=== PATIENT | male | born 1980 | race Caucasian/White ===

== ENCOUNTER 2019-08-25 12:50 | Outpatient (CLI) | payer BC, SELFPAY ==
--- NOTE | 2019-08-30 14:57 | WPDPFTINT ---
PFT Interpretation PFT Interpretation: DOS: 08/25/2019 REQUESTING: Dr Tim French REASON FOR TESTING: Cough PULMONARY FUNCTION TESTS Results are reliable and reproducible. Spirometry: FEV1 90%, FVC 85%, FEV1 % is 79, all normal. No bronchodilator was given. Lung volumes: Total lung capacity is 62%, moderately decreased consistent with a restrictive pattern. ERV is 22%, very low, may be related to elevated BMI. Airway resistance is 135%, minimally elevated. The RV is spuriously low at 6%, a calculated value, RV = TLC - VC. Diffusion: DLCO 65%, mildly decreased. Flow volume loop: Normal IMPRESSION: Normal spirometry. No bronchodilator was given. Moderate restriction and mild diffusion abnormality. Restriction with decreased diffusion can be seen in heart failure, sarcoid and other conditions. This study is not consistent with asthma or obesity, as both conditions are associated with increased DLCO. Cathy Ramon MD
== END 2019-08-25 12:51 | disposition home or self-care (01) ==
PROVIDERS: PCP Internal Medicine; Visit Provider Internal Medicine
DX: R05 Cough (principal)
CPT/HCPCS: 94375; 94726; 94729

== ENCOUNTER 2019-10-15 00:34 | Outpatient (CLI) | payer BC, SELFPAY ==
[2019-10-15 17:53] LABS: SARS-CoV-2 RNA PCR Negative
== END 2019-10-15 00:35 | disposition home or self-care (01) ==
LOC: ANHCOVIDDT 00:35
PROVIDERS: PCP Internal Medicine; Visit Provider Surgery
DX: Z01.818 Encounter for other preprocedural examination (principal); Z11.59 Encounter for screening for other viral diseases
CPT/HCPCS: 87635; C9803; U0003

== ENCOUNTER 2019-10-15 08:06 | Outpatient (CLI) | payer BC, SELFPAY ==
--- NOTE | 2019-10-15 08:10 | ECG_ITS ---
Measurements Intervals [place] Rate: 84 P: 17 CT: 158 QRS: -9 QRSD: 105 T: 3 QT: 386 QTc: 457 Interpretive Statements SINUS RHYTHM POOR R WAVE PROGRESSION, ANTERIOR LEADS BORDERLINE T WAVE ABNORMALITY- INFERIOR LEADS BASELINE ARTIFACT- I, II, III, AVR, AVL, AVF, V6 BORDERLINE ECG Electronically Signed On 10-15-2019 10:44:44 CDT by Ehsan Alexander D.O.
[2019-10-15 08:45] LABS: Blood Urea Nitrogen 9 mg/dL (9-20); Calcium 8.6 mg/dL (8.4-10.2); Carbon Dioxide 29 mmol/L (22-30); Chloride 101 mmol/L (98-107); Estimated Glomerular Filt Rate > 60; Glucose 177 mg/dL (75-110); Potassium 3.5 mmol/L (3.4-5.0); Sodium 137 mmol/L (137-145)
== END 2019-10-15 08:07 | disposition home or self-care (01) ==
LOC: ANHSURGERY 08:10
PROVIDERS: Anesthesiology; PCP Internal Medicine; Visit Provider Surgery
DX: Z01.818 Encounter for other preprocedural examination (principal); I10 Essential (primary) hypertension; E11.9 Type 2 diabetes mellitus without complications
CPT/HCPCS: 36415; 80048; 93005

== ENCOUNTER 2019-10-18 02:23 | Day surgery (SDC) | payer BC, SELFPAY ==
[2019-10-05 14:09] VITALS: BMI 48.9
[2019-10-18] MEDS: LACTATED RINGERS 1,000 ML 30 ML IV CONT (06:30)
--- NOTE | 2019-10-18 06:41 | WPDANESEPPF ---
Anes - Initial Pre Proc Eval Procedure: Operation Date: 10/18/19 07:30 Proposed Procedures p Excision Subcutaneous Mass Right Anterior Shoulder - Andrew Pineda MD Date/Time: 10/18/19 06:41 Surgeon: Andrew Pineda MD Pre Op Diagnosis: Subcutaneous Mass Rt Shoulder Patient Data Age: 39 Gender: M Height: 1.88 m Weight: 150 kg Allergies Allergy/AdvReac Type Severity Reaction Status Date / Time No Known Allergies Allergy Verified 10/18/19 06:02 Home Medications Medication Instructions Recorded Confirmed Type albuterol sulfate 90 mcg/actuation 1 inhalation INHALATION Q4-6H PRN 09/08/19 10/05/19 History breath activated powder inhaler,sensor amlodipine 10 mg tablet 10 mg PO DAILY 09/08/19 10/18/19 History atorvastatin 10 mg tablet 10 mg PO DAILY 09/08/19 10/18/19 History blood sugar diagnostic #10 each 09/08/19 History blood-glucose meter #1 each 09/08/19 History carvedilol 25 mg tablet 25 mg PO Q12H 09/08/19 10/18/19 History citalopram 40 mg tablet 40 mg PO DAILY 09/08/19 10/18/19 History etodolac 400 mg tablet 400 mg PO BID 09/08/19 10/05/19 History glimepiride 2 mg tablet 2 mg PO QAM 09/08/19 10/18/19 History hydrochlorothiazide 25 mg tablet 25 mg PO DAILY 09/08/19 10/18/19 History lancets #50 each 09/08/19 History losartan 100 mg tablet 100 mg PO DAILY 09/08/19 10/18/19 History metformin 500 mg tablet 500 mg PO DAILY 09/08/19 10/18/19 History metoprolol succinate 100 mg 100 mg PO DAILY 09/08/19 10/18/19 History tablet,extended release 24 hr montelukast 10 mg tablet 10 mg PO DAILY 09/08/19 10/18/19 History omeprazole 40 mg capsule,delayed 40 mg PO DAILY 09/08/19 10/18/19 History release ECG: Date of Service: 10/15/19 Procedure(s): CA 12 lead EKG Accession Number(s): [id number] cc: ~ Measurements Intervals [place] Rate: 84 P: 17 [place]: 158 QRS: -9 QRSD: 105 T: 3 QT: 386 QTc: 457 Interpretive Statements SINUS RHYTHM POOR R WAVE PROGRESSION, ANTERIOR LEADS BORDERLINE T WAVE ABNORMALITY- INFERIOR LEADS BASELINE ARTIFACT- I, II, III, AVR, AVL, AVF, V6 BORDERLINE ECG Electronically Signed On 10-15-2019 10:44:44 CDT by Ehsan Alexander D.O. Patient hx anesthesia problems: none Family hx anesthesia problems: none [facility] Past Medical History Medical History (Updated 10/18/19 @ 06:42 by Ranjith Martinez MD) Acute depression Anxiety Diabetes GERD (gastroesophageal reflux disease) High cholesterol HTN (hypertension) Hypercholesterolemia Morbid obesity with BMI of 40.0-44.9, adult Surgical History Surgical History H/O sinus surgery Social History Social History Smoking status: Never smoker Alcohol intake: current Substance use: never Gender identity (if verbalized by the patient): Male Anes - Eval Final PreProcedure Day of Procedure 10/18/19 06:41 Patient weight: morbidly obese Heart: regular rate and rhythm Lungs: clear to auscultation and normal air movement Airway: Mallampati scale class II Neurological: alert and oriented Last oral intake: >/= 8 hours ASA classification: III Emergent: no Anesthetic plan: proceed Anesthesia type and monitoring: general GIVS and LMA Informed Consent: The patient's anesthetic plan and its attendant risks and benefits were discussed with the patient/family/POA. Questions were solicited and answers provided to the satisfaction of the patient/family/POA.
[2019-10-18 06:59] VITALS: BP 157/85; PULSE 76; RESP 18; TEMP 36.7; O2SAT 98
[2019-10-18 07:06] LABS: Glucose Point of Care 160 (65-105)
--- NOTE | 2019-10-18 07:25 | WPDHPUPDATE1 ---
History and Physical Update Update Date/Time: 10/18/19 07:25 History and Physical has been reviewed, including an updated exam of the patient. There are NO changes in the patient's condition. Risks, benefits, and alternatives have been discussed and questions answered. Patient agrees to proceed with procedure.
[2019-10-18] MEDS: ceFAZolin SODIUM 1 GM VIAL IV PUSH (07:34)
[2019-10-18] MEDS: BUPIVACAINE/EPINEPHRINE 0.5% 30 ML VIAL 10 ML INFILTRATE (07:34)
[2019-10-18] MEDS: ceFAZolin 2 GM/D5W 50 ML 2 GM/50 ML BAG IVPB (07:34)
--- NOTE | 2019-10-18 08:18 | SUR.OPER ---
EBL:10cc
[2019-10-18 08:30] VITALS: BP 156/102; PULSE 83; RESP 18; O2SAT 97
--- NOTE | 2019-10-18 08:33 | PM.PROC ---
Procedure Note - Detailed Date of procedure: 10/18/19 Pre-op diagnosis: Subcutaneous Mass Rt Shoulder Post-op diagnosis: same Procedure performed: Excision of subcutaneous mass right anterior shoulder Description of procedure: The patient was placed in the supine position. After a surgical time out confirming patient and procedure the patient was prepped and draped in the usual sterile fashion. Local anesthetic was administered subcutaneously. The lesion measured 3 x 2.5 cm. An elliptical incision was made around and over the lesion taking a thin margin circumferentially. I felt that there was a possibility of either this being an epidermal cyst or a lipoma. Since it could be a cyst I want to take little skin overlying the lesion. I dissected down to the deep subcutaneous tissues and then completely excised the lesion. After incising circumferentially in elliptical fashion I elevated this with 2 Allis is an using Bovie cautery carefully dissected the palpable mass from subcutaneous tissues. On its deep sided did seem to be somewhat densely adhered to the fascia of the underlying muscle. Bleeding was controlled with electrocautery. The wound was closed in two layers. An un-dyed 2-0 vicryl deep dermal and then a 4-0 undyed Monocryl running subcuticular closure was completed. Surgical glue applied as dressing. Estimated blood loss about 8 cc. Patient tolerated this well. Anesthesia: local and other (G IV S) Surgeon: Andrew Pineda MD Batch Tank Controller: KARLIE Lowe, OR 1st assist Estimated blood loss (mL): 8 Drains: No Packing: No Pathology: yes (Ellipse of skin with underlying subcutaneous mass measuring 3.5 x 3 cm) Complications: No immediate complications Condition: stable Disposition: same day Findings: A palpable spongy soft mass in the subcutaneous space.
[2019-10-18 09:00] VITALS: BP 155/83; PULSE 72; RESP 18; O2SAT 93
[2019-10-18 09:18] LABS: Glucose Point of Care 203 (65-105)
[2019-10-18 09:30] VITALS: BP 145/77; PULSE 65; RESP 18
== END 2019-10-18 09:47 | disposition home or self-care (01) ==
PROVIDERS: PCP Internal Medicine; Visit Provider Surgery
PROC: (CPT 23071; principal; 2019-10-18 07:30)
DX: D17.39 Benign lipomatous neoplasm of skin and subcutaneous tissue of other sites (principal); I10 Essential (primary) hypertension; E78.00 Pure hypercholesterolemia, unspecified; K21.9 Gastro-esophageal reflux disease without esophagitis; E66.01 Morbid (severe) obesity due to excess calories; Z68.41 Body mass index [BMI] 40.0-44.9, adult; F41.9 Anxiety disorder, unspecified; F32.9 Major depressive disorder, single episode, unspecified
CPT/HCPCS: 23071; 88304; J0690; J2250; J2704; J3010; J7120

== ENCOUNTER → 2023-02-12 16:00 | Outpatient (REF) | payer BC, SELFPAY | LOC: ANHLAB 16:00 | PROVIDERS: PCP Internal Medicine; Visit Provider Plastic Surgery | DX: L72.11 Pilar cyst (principal) | CPT/HCPCS: 88305 ==

== ENCOUNTER → 2023-03-17 15:57 | Outpatient (REF) | payer BC, SELFPAY | LOC: ANHLAB 15:57 | PROVIDERS: PCP Internal Medicine; Visit Provider Plastic Surgery | DX: L72.9 Follicular cyst of the skin and subcutaneous tissue, unspecified (principal); L08.9 Local infection of the skin and subcutaneous tissue, unspecified; L72.11 Pilar cyst | CPT/HCPCS: 88305 ==

== ENCOUNTER 2023-03-17 16:41 | Outpatient (NON) | payer BC, SELFPAY | END 2023-03-17 16:42 | disposition home or self-care (01) | LOC: ANHLAB 16:42 | PROVIDERS: PCP Internal Medicine; Visit Provider Plastic Surgery | DX: L72.9 Follicular cyst of the skin and subcutaneous tissue, unspecified (principal); L08.9 Local infection of the skin and subcutaneous tissue, unspecified; L72.11 Pilar cyst | CPT/HCPCS: 87070; 87075; 87147; 87181; 87186; 87205; 88305 ==

== ENCOUNTER 2024-06-16 07:51 | Outpatient (CLI) | payer BC, SELFPAY ==
--- OUTSIDE RECORDS SUMMARY | 2024-06-16 07:55 | XMS_ITS | Data Portability ---
Author Organization [facility] ALEJANDRAAnjali Address [address] [place] [address] Care Team Providers Care Head Inspector Name Role Phone DERRELL FRENCH Primary Care Provider [facility] Dining Services Manager [phone] Assessment Encounter Date Assessment Date Assessment LastModified by Organization Details LastModified Time 07/03/2023 07/03/2023 Will try to get him switched to Ozempic so we can realize a little bit more weight loss hypertension hyperlipidemia diabetes obesity chronic rhinitis and the medicines used to treat those have been discussed. I really need to focus on the weight loss blood pressure he needs to get a machine and start taking that every day bring numbers then. Follow-up with me in 4 months. Records from old clinic. [email or web address] Not available 07/13/2023 16:27:36 01/22/2024 01/22/2024 Blood work ordered diagnosis and assessment and plan discussed immunizations recommended that he get flu and COVID even consider RSV given his obesity consider bariatric surgery referral GLP 1 agents of which he is reluctant at this time states he is up-to-date on diabetic eye exam needs colon cancer screening. Cologuard ordered return to clinic 4 months. [email or web address] Not available 01/23/2024 11:46:05 05/27/2024 05/27/[address] report foot exam refer for podiatry blood work ordered sleep study ordered weight controlled discussed in detail follow up 4 months [email or web address] Not available 05/29/2024 13:35:48 Plan of Treatment Reminders Order Date Submit Date Provider Last Modified By Organization Details Last Modified Time Details Appointments ANY 15 2024 03:15P Niles French MD Not available Not available Not available Lab HbA1c (hemoglob in A1c), blood 2024 025 [facility], [address], [place], [address], 05/27/2024 17:16:51 albumin/c reatinine , mass ratio, urine 2024 025 [facility], [address], [place], [address], 05/27/2024 17:16:51 lipid panel, serum 2024 025 ester [facility], [address], [place], [address], 05/27/2024 17:16:51 CBC w/ auto diff 2024 025 ester [facility], [address], [place], [address], 05/27/2024 17:16:51 CMP, serum or plasma 2024 025 ester [facility], [address], [place], [address], 05/27/2024 17:16:51 HbA1c (hemoglob in A1c), blood 2023 024 CORIN[facility], [address], [place], [address], 01/24/2024 09:13:53 albumin/c reatinine , mass ratio, urine 2023 024 CORINNE [facility], [address], [place], [address], 01/24/2024 09:13:51 noninvasi ve colorecta l cancer DNA + occult blood screening , QL, stool 2023 024 [facility] ([facility] Orders Only), [address], [address], [place], [address], 02/03/2024 22:06:46 lipid panel, serum 2023 024 [facility], [address], [place], [address], 01/24/2024 09:13:52 CMP, serum or plasma 2023 024 [facility], [address], [place], [address], 01/24/2024 09:13:52 CBC w/ auto diff 2023 024 [facility], [address], [place], [address], 01/24/2024 09:13:54 urinalysi s, microscop ic 2023 024 [facility], [address], [place], [address], 01/24/2024 09:13:53 HbA1c (hemoglob in A1c), blood 2023 024 [facility], [address], [place], [address], 07/05/2023 08:20:16 CMP, serum or plasma 2023 024 [facility], [address], [place], [address], 07/05/2023 08:20:15 CBC w/ auto diff 2023 024 [facility], [address], [place], [address], 07/05/2023 08:20:17 CBC 2023 024 [email or web address], [address], [place], [address], 10/02/2023 11:03:47 TSH, ultra-sen sitive, serum 2023 024 [place], [address], [place], [address], 07/05/2023 08:20:16 unlisted lab - T4, free 2023 024 [place] [facility], [address], [place], [address], 07/05/2023 08:20:15 T3, free, serum or plasma 2023 024 [place] [facility], [address], [place], [address], 07/05/2023 08:20:18 Referral podiatris t referral 2024 025 renato [facility]ang [facility], [address], [address], [place], [address], 05/27/2024 17:50:51 Procedures None recorded. Surgeries None recorded. Imaging home sleep study 2024 025 [facility] ([facility]), [address] [facility], [place], [address], 05/31/2024 10:45:37 Medication Orders Ozempic 0.25 mg or 0.5 mg (2 mg/1.5 mL) subcutane ous pen injector 2023 024 [id number], [address], [place], [place], [id number], 04/29/2024 09:38:40 Patient TargetsNo targets recorded. Patient Instructions Encounter Date Encounter Id Patient Instructions Last Modified By Organization Details Last Modified Time 07/03/2023 [id number] diabetic eye exam* [email or web address] Not available 05/24/2024 16:55:11 01/22/2024 [id number] A healthy lifestyle: care instructions [email or web address] Not available 01/22/2024 17:28:59 05/27/2024 [id number] A healthy lifestyle: care instructions [email or web address] Not available 05/27/2024 17:16:51 Reason for Referral Radiation Therapy Technician Referral for Type 2 diabetes mellitus Referring Physician: Derrell French, Internal Medicine, Encounter Date: 05/27/2024 Results Created Date Observation Date Name Description Value Unit Range Abnormal Flag Note LastModifiedBy Organization Detail LastModifiedTime 07/04/1907/05/2023 T4, FREE T4,free(dire ct) 1.39 NG/dL 0.82-1 .77 Not Available [facility] ([facility]) [address] [place], [address], 07/05/2023 08:20:14 07/04/19 24 07/05/2023 COMP. METAB OLIC PANEL (14) glucose 185 mg/dL 70-99 above high normal Not Available [facility] ([facility]) [address] [place], [address], 07/05/2023 08:20:15 07/04/19 24 07/05/2023 COMP. METAB OLIC PANEL (14) BUN 7 mg/dL 6-24 Not Available [facility] ([facility]) [address] [place], [address], 07/05/2023 08:20:15 07/04/19 24 07/05/2023 COMP. METAB OLIC PANEL (14) creatinine 0.70 mg/dL 0.76-1 .27 below low normal Not Available [facility] ([facility]) [address] [place], [address], 07/05/2023 08:20:15 07/04/19 24 07/05/2023 COMP. METAB OLIC PANEL (14) eGFR 116 mL/mi n/1.7 3 >59 Not Available [facility] ([facility]) [address] [facility], [place], [address], 07/05/2023 08:20:15 07/04/19 24 07/05/2023 COMP. METAB OLIC PANEL (14) BUN/creatini ne ratio 10 9-20 Not Available [facility] ([facility]) [address] [facility], [place], [address], 07/05/2023 08:20:15 07/04/19 24 07/05/2023 COMP. METAB OLIC PANEL (14) sodium 143 mmol/ L 134-14 4 Not Available [facility] ([facility]) [address] [facility], [place], [address], 07/05/2023 08:20:15 07/04/19 24 07/05/2023 COMP. METAB OLIC PANEL (14) potassium 4.2 mmol/ L 3.5-5. 2 Not Available [facility] ([facility]) [address] [place], [address], 07/05/2023 08:20:15 07/04/19 24 07/05/2023 COMP. METAB OLIC PANEL (14) chloride 98 mmol/ L 96-106 Not Available [facility] ([facility]) [address] [place], [address], 07/05/2023 08:20:15 07/04/19 24 07/05/2023 COMP. METAB OLIC PANEL (14) carbon dioxide, total 26 mmol/ L 20-29 Not Available [facility] ([facility]) [address] [place], [address], 07/05/2023 08:20:15 07/04/19 24 07/05/2023 COMP. METAB OLIC PANEL (14) calcium 9.6 mg/dL 8.7-10 .2 Not Available [facility] ([facility]) [address] [place], [address], 07/05/2023 08:20:15 07/04/19 24 07/05/2023 COMP. METAB OLIC PANEL (14) protein, total 7.0 g/dL 6.0-8. 5 Not Available [facility] ([facility]) [address] [place], [address], 07/05/2023 08:20:15 07/04/19 24 07/05/2023 COMP. METAB OLIC PANEL (14) albumin 4.5 g/dL 4.1-5. 1 Not Available [facility] ([facility]) [address] [place], [address], 07/05/2023 08:20:15 07/04/19 24 07/05/2023 COMP. METAB OLIC PANEL (14) globulin, total 2.5 g/dL 1.5-4. 5 Not Available [facility] ([facility]) [address] [place], [address], 07/05/2023 08:20:15 07/04/19 24 07/05/2023 COMP. METAB OLIC PANEL (14) A/G ratio 1.8 1.2-2. 2 Not Available [facility] ([facility]) [address] [place], [address], 07/05/2023 08:20:15 07/04/19 24 07/05/2023 COMP. METAB OLIC PANEL (14) bilirubin, total 0.7 mg/dL 0.0-1. 2 Not Available [facility] ([facility]) [address] [place], [address], 07/05/2023 08:20:15 07/04/19 24 07/05/2023 COMP. METAB OLIC PANEL (14) alkaline phosphatase 58 IU/L 44-121 Not Available [facility] ([facility]) [address] [place], [address], 07/05/2023 08:20:15 07/04/19 24 07/05/2023 COMP. METAB OLIC PANEL (14) AST (SGOT) 35 IU/L 0-40 Not Available [facility] ([facility]) [address] [facility], [place], [address], 07/05/2023 08:20:15 07/04/19 24 07/05/2023 COMP. METAB OLIC PANEL (14) ALT (SGPT) 65 IU/L 0-44 above high normal Not Available [facility] ([facility]) [address] [facility], [place], [address], 07/05/2023 08:20:15 07/04/19 24 07/05/2023 HEMOG LOBIN A1C hemoglobin A1C 7.5 % 4.8-5. 6 above high normal Predi abete s: 5.7 - 6.4 Diabe surjit: >6.4 Glyce marky contr ol for adult s with diabe surjit: <7.0 Not Available [facility] ([facility]) [address] [facility], [place], [address], 07/05/2023 08:20:16 07/04/19 24 07/05/2023 TSH TSH 0.678 uIU/m L 0.450- 4.500 Not Available [facility] ([facility]) [address] [place], [address], 07/05/2023 08:20:16 07/04/19 24 07/05/2023 CBC WITH DIFFE RENTI AL/PL ATELE T WBC 6.3 x10e3 /uL 3.4-10 .8 Not Available [facility] ([facility]) [address] [place], [address], 07/05/2023 08:20:17 07/04/19 24 07/05/2023 CBC WITH DIFFE RENTI AL/PL ATELE T RBC 5.94 x10e6 /uL 4.14-5 .80 above high normal Not Available [facility] ([facility]) [address] [facility], [place], [address], 07/05/2023 08:20:17 07/04/19 24 07/05/2023 CBC WITH DIFFE RENTI AL/PL ATELE T hemoglobin 16.6 g/dL 13.0-1 7.7 Not Available [facility] ([facility]) [address] [facility], [place], [address], 07/05/2023 08:20:17 07/04/19 24 07/05/2023 CBC WITH DIFFE RENTI AL/PL ATELE T hematocrit 48.6 % 37.5-5 1.0 Not Available [facility] ([facility]) [address] [facility], [place], [address], 07/05/2023 08:20:17 07/04/19 24 07/05/2023 CBC WITH DIFFE RENTI AL/PL ATELE T MCV 82 fL 79-97 Not Available [facility] ([facility]) [address] [facility], [place], [address], 07/05/2023 08:20:17 07/04/19 24 07/05/2023 CBC WITH DIFFE RENTI AL/PL ATELE T MCH 27.9 pg 26.6-3 3.0 Not Available [facility] ([facility]) [address] [facility], [place], [address], 07/05/2023 08:20:17 07/04/19 24 07/05/2023 CBC WITH DIFFE RENTI AL/PL ATELE T MCHC 34.2 g/dL 31.5-3 5.7 Not Available [facility] ([facility]) [address] [facility], [place], [address], 07/05/2023 08:20:17 07/04/19 24 07/05/2023 CBC WITH DIFFE RENTI AL/PL ATELE T RDW 12.9 % 11.6-1 5.4 Not Available [facility] ([facility]) [address], [place], [address], 07/05/2023 08:20:17 07/04/19 24 07/05/2023 CBC WITH DIFFE RENTI AL/PL ATELE T platelets 251 x10e3 /uL 150-45 0 Not Available [facility] ([facility]) [address] [facility], [place], [address], 07/05/2023 08:20:17 07/04/19 24 07/05/2023 CBC WITH DIFFE RENTI AL/PL ATELE T neutrophils 60 % notest ab. Not Available [facility] ([facility]) [address] [facility], [place], [address], 07/05/2023 08:20:17 07/04/19 24 07/05/2023 CBC WITH DIFFE RENTI AL/PL ATELE T lymphs 28 % notest ab. Not Available [facility] ([facility]) [address] [facility], [place], [address], 07/05/2023 08:20:17 07/04/19 24 07/05/2023 CBC WITH DIFFE RENTI AL/PL ATELE T monocytes 7 % notest ab. Not Available [facility] ([facility]) [address] [facility], [place], [address], 07/05/2023 08:20:17 07/04/19 24 07/05/2023 CBC WITH DIFFE RENTI AL/PL ATELE T eos 3 % notest ab. Not Available [facility] ([facility]) [address] [facility], [place], [address], 07/05/2023 08:20:17 07/04/19 24 07/05/2023 CBC WITH DIFFE RENTI AL/PL ATELE T basos 1 % notest ab. Not Available [facility] ([facility]) [address] [facility], [place], [address], 07/05/2023 08:20:17 07/04/19 24 07/05/2023 CBC WITH DIFFE RENTI AL/PL ATELE T neutrophils (absolute) 3.8 x10e3 /uL 1.4-7. 0 Not Available [facility] ([facility]) [address] [facility], [place], [address], 07/05/2023 08:20:17 07/04/19 24 07/05/2023 CBC WITH DIFFE RENTI AL/PL ATELE T lymphs (absolute) 1.7 x10e3 /uL 0.7-3. 1 Not Available [facility] ([facility]) [address] [place], [address], 07/05/2023 08:20:17 07/04/19 24 07/05/2023 CBC WITH DIFFE RENTI AL/PL ATELE T monocytes(ab solute) 0.4 x10e3 /uL 0.1-0. 9 Not Available [facility] ([facility]) [address] [place], [address], 07/05/2023 08:20:17 07/04/19 24 07/05/2023 CBC WITH DIFFE RENTI AL/PL ATELE T eos (absolute) 0.2 x10e3 /uL 0.0-0. 4 Not Available [facility] ([facility]) [address] [place], [address], 07/05/2023 08:20:17 07/04/19 24 07/05/2023 CBC WITH DIFFE RENTI AL/PL ATELE T baso (absolute) 0.1 x10e3 /uL 0.0-0. 2 Not Available [facility] ([facility]) [address] [place], [address], 07/05/2023 08:20:17 07/04/19 24 07/05/2023 CBC WITH DIFFE RENTI AL/PL ATELE T immature granulocytes 1 % notest ab. Not Available [facility] ([facility]) [address] [place], [address], 07/05/2023 08:20:17 07/04/19 24 07/05/2023 CBC WITH DIFFE RENTI AL/PL ATELE T immature grans (abs) 0.1 x10e3 /uL 0.0-0. 1 Not Available [facility] ([facility]) [address] [facility], [place], [address], 07/05/2023 08:20:17 07/04/19 24 07/05/2023 TRIIO DOTHY BRAIN E (T3), FREE triiodothyro nine (T3), free 3.1 pg/mL 2.0-4. 4 Not Available [facility] ([facility]) [address] [facility], [place], [address], 07/05/2023 08:20:18 01/23/20 24 01/24/2024 ALBUM IN/CR EATIN INE RATIO ,URIN E creatinine, urine 37.0 mg/dL notest ab. Not Available [facility] ([facility]) [address] [facility], [place], [address], 01/24/2024 09:13:51 01/23/20 24 01/24/2024 ALBUM IN/CR EATIN INE RATIO ,URIN E albumin, urine 56.9 ug/mL notest ab. Not Available [facility] ([facility]) [address] [facility], [place], [address], 01/24/2024 09:13:51 01/23/20 24 01/24/2024 ALBUM IN/CR EATIN INE RATIO ,URIN E alb/creat ratio 154 mg/g_ creat 0-29 above high normal Soraya l: 0 - 29 Moder ately incre ased: 30 - 300 Sever kurt incre ased: >300 Not Available [facility] ([facility]) [address] [place], [address], 01/24/2024 09:13:51 01/23/20 24 01/24/2024 LIPID PANEL cholesterol, total 154 mg/dL 100-19 9 Not Available [facility] ([facility]) [address] [place], [address], 01/24/2024 09:13:52 01/23/20 24 01/24/2024 LIPID PANEL triglyceride s 225 mg/dL 0-149 above high normal Not Available [facility] ([facility]) [address] [place], [address], 01/24/2024 09:13:52 01/23/20 24 01/24/2024 LIPID PANEL HDL cholesterol 36 mg/dL >39 below low normal Not Available [facility] ([facility]) [address] [place], [address], 01/24/2024 09:13:52 01/23/20 24 01/24/2024 LIPID PANEL VLDL cholesterol dinesh 38 mg/dL 5-40 Not Available [facility] ([facility]) [address] [place], [address], 01/24/2024 09:13:52 01/23/2001/24/2024 LIPID PANEL LDL chol calc ([facility]) 80 mg/dL 0-99 Not Available [facility] ([facility]) [address] [place], [address], 01/24/2024 09:13:52 01/23/20 24 01/24/2024 COMP. METAB OLIC PANEL (14) glucose 171 mg/dL 70-99 above high normal Not Available [facility] ([facility]) [address] [place], [address], 01/24/2024 09:13:52 01/23/20 24 01/24/2024 COMP. METAB OLIC PANEL (14) BUN 9 mg/dL 6-24 Not Available [facility] ([facility]) [address] [place], [address], 01/24/2024 09:13:52 01/23/20 24 01/24/2024 COMP. METAB OLIC PANEL (14) creatinine 0.76 mg/dL 0.76-1 .27 Not Available [facility] ([facility]) [address] [facility], [place], [address], 01/24/2024 09:13:52 01/23/20 24 01/24/2024 COMP. METAB OLIC PANEL (14) eGFR 113 mL/mi n/1.7 3 >59 Not Available [facility] ([facility]) [address] [facility], [place], [address], 01/24/2024 09:13:52 01/23/20 24 01/24/2024 COMP. METAB OLIC PANEL (14) BUN/creatini ne ratio 12 9-20 Not Available [facility] ([facility]) [address] [facility], [place], [address], 01/24/2024 09:13:52 01/23/20 24 01/24/2024 COMP. METAB OLIC PANEL (14) sodium 139 mmol/ L 134-14 4 Not Available [facility] ([facility]) [address] [place], [address], 01/24/2024 09:13:52 01/23/20 24 01/24/2024 COMP. METAB OLIC PANEL (14) potassium 3.8 mmol/ L 3.5-5. 2 Not Available [facility] ([facility]) [address] [facility], [place], [address], 01/24/2024 09:13:52 01/23/20 24 01/24/2024 COMP. METAB OLIC PANEL (14) chloride 97 mmol/ L 96-106 Not Available [facility] ([facility]) [address] [facility], [place], [address], 01/24/2024 09:13:52 01/23/20 24 01/24/2024 COMP. METAB OLIC PANEL (14) carbon dioxide, total 25 mmol/ L 20-29 Not Available [facility] ([facility]) [address] [place], [address], 01/24/2024 09:13:52 01/23/20 24 01/24/2024 COMP. METAB OLIC PANEL (14) calcium 9.1 mg/dL 8.7-10 .2 Not Available [facility] ([facility]) [address] [facility], [place], [address], 01/24/2024 09:13:52 01/23/20 24 01/24/2024 COMP. METAB OLIC PANEL (14) protein, total 6.6 g/dL 6.0-8. 5 Not Available [facility] ([facility]) [address], [place], [address], 01/24/2024 09:13:52 01/23/20 24 01/24/2024 COMP. METAB OLIC PANEL (14) albumin 4.1 g/dL 4.1-5. 1 Not Available [facility] ([facility]) [address] [place], [address], 01/24/2024 09:13:52 01/23/20 24 01/24/2024 COMP. METAB OLIC PANEL (14) globulin, total 2.5 g/dL 1.5-4. 5 Not Available [facility] ([facility]) [address] [place], [address], 01/24/2024 09:13:52 01/23/20 24 01/24/2024 COMP. METAB OLIC PANEL (14) bilirubin, total 0.9 mg/dL 0.0-1. 2 Not Available [facility] ([facility]) [address] [place], [address], 01/24/2024 09:13:52 01/23/20 24 01/24/2024 COMP. METAB OLIC PANEL (14) alkaline phosphatase 48 IU/L 44-121 Not Available [facility]) [address], [place], [address], 01/24/2024 09:13:52 01/23/20 24 01/24/2024 COMP. METAB OLIC PANEL (14) AST (SGOT) 34 IU/L 0-40 Not Available [facility] ([facility]) [address], [place], [address], 01/24/2024 09:13:52 01/23/20 24 01/24/2024 COMP. METAB OLIC PANEL (14) ALT (SGPT) 62 IU/L 0-44 above high normal Not Available [facility] ([facility]) [address] [facility], [place], [address], 01/24/2024 09:13:52 01/23/20 24 01/24/2024 MICRO SCOPI C EXAMI NATIO N WBC NONE SEEN /hpf 0-5 Not Available [facility] ([facility]) [address] [facility], [place], [address], 01/24/2024 09:13:53 01/23/20 24 01/24/2024 MICRO SCOPI C EXAMI NATIO N RBC NONE SEEN /hpf 0-2 Not Available [facility] ([facility]) [address] [facility], [place], [address], 01/24/2024 09:13:53 01/23/20 24 01/24/2024 MICRO SCOPI C EXAMI NATIO N epithelial cells (non renal) NONE SEEN /hpf 0-10 Not Available [facility] ([facility]) [address] [facility], [place], [address], 01/24/2024 09:13:53 01/23/20 24 01/24/2024 MICRO SCOPI C EXAMI NATIO N casts NONE SEEN /lpf nonese en Not Available [facility] ([facility]) [address] [facility], [place], [address], 01/24/2024 09:13:53 01/23/20 24 01/24/2024 MICRO SCOPI C EXAMI NATIO N bacteria NONE SEEN nonese en/few Not Available [facility] ([facility]) [address] [facility], [place], [address], 01/24/2024 09:13:53 01/23/2001/24/2024 HEMOG LOBIN A1C hemoglobin A1C 7.9 % 4.8-5. 6 above high normal Predi abete s: 5.7 - 6.4 Diabe surjit: >6.4 Glyce marky contr ol for adult s with diabe surjit: <7.0 Not Available [facility] ([facility]) [address] [facility], [place], [address], 01/24/2024 09:13:53 01/23/20 24 01/24/2024 CBC WITH DIFFE RENTI AL/PL ATELE T WBC 6.7 x10e3 /uL 3.4-10 .8 Not Available [facility] ([facility]) [address] [facility], [place], [address], 01/24/2024 09:13:54 01/23/20 24 01/24/2024 CBC WITH DIFFE RENTI AL/PL ATELE T RBC 5.87 x10e6 /uL 4.14-5 .80 above high normal Not Available [facility] ([facility]) [address] [facility], [place], [address], 01/24/2024 09:13:54 01/23/20 24 01/24/2024 CBC WITH DIFFE RENTI AL/PL ATELE T hemoglobin 15.9 g/dL 13.0-1 7.7 Not Available [facility] ([facility]) [address] [place], [address], 01/24/2024 09:13:54 01/23/20 24 01/24/2024 CBC WITH DIFFE RENTI AL/PL ATELE T hematocrit 49.1 % 37.5-5 1.0 Not Available [facility] ([facility]) [address] [facility], [place], [address], 01/24/2024 09:13:54 01/23/20 24 01/24/2024 CBC WITH DIFFE RENTI AL/PL ATELE T MCV 84 fL 79-97 Not Available [facility] ([facility]) [address] [facility], [place], [address], 01/24/2024 09:13:54 01/23/20 24 01/24/2024 CBC WITH DIFFE RENTI AL/PL ATELE T MCH 27.1 pg 26.6-3 3.0 Not Available [facility] ([facility]) [address] [facility], [place], [address], 01/24/2024 09:13:54 01/23/20 24 01/24/2024 CBC WITH DIFFE RENTI AL/PL ATELE T MCHC 32.4 g/dL 31.5-3 5.7 Not Available [facility] ([facility]) [address] [facility], [place], [address], 01/24/2024 09:13:54 01/23/20 24 01/24/2024 CBC WITH DIFFE RENTI AL/PL ATELE T RDW 12.5 % 11.6-1 5.4 Not Available [facility] ([facility]) [address] [facility], [place], [address], 01/24/2024 09:13:54 01/23/20 24 01/24/2024 CBC WITH DIFFE RENTI AL/PL ATELE T platelets 255 x10e3 /uL 150-45 0 Not Available [facility] ([facility]) [address] [facility] [address], [place], [address], 01/24/2024 09:13:54 01/23/20 24 01/24/2024 CBC WITH DIFFE RENTI AL/PL ATELE T neutrophils 57 % notest ab. Not Available [facility] ([facility]) [address] [facility] [address], [place], [address], 01/24/2024 09:13:54 01/23/20 24 01/24/2024 CBC WITH DIFFE RENTI AL/PL ATELE T lymphs 29 % notest ab. Not Available [facility] ([facility]) [address] [facility] [address], [place], [address], 01/24/2024 09:13:54 01/23/20 24 01/24/2024 CBC WITH DIFFE RENTI AL/PL ATELE T monocytes 8 % notest ab. Not Available [facility] ([facility]) [address] [facility] [address], [place], [address], 01/24/2024 09:13:54 01/23/20 24 01/24/2024 CBC WITH DIFFE RENTI AL/PL ATELE T eos 4 % notest ab. Not Available [facility] ([facility]) [address] [facility] [address], [place], [address], 01/24/2024 09:13:54 01/23/20 24 01/24/2024 CBC WITH DIFFE RENTI AL/PL ATELE T basos 1 % notest ab. Not Available [facility] ([facility]) [address] [place], [address], 01/24/2024 09:13:54 01/23/20 24 01/24/2024 CBC WITH DIFFE RENTI AL/PL ATELE T neutrophils (absolute) 3.9 x10e3 /uL 1.4-7. 0 Not Available [facility] ([facility]) [address] [facility] [address], [place], [address], 01/24/2024 09:13:54 01/23/20 24 01/24/2024 CBC WITH DIFFE RENTI AL/PL ATELE T lymphs (absolute) 2.0 x10e3 /uL 0.7-3. 1 Not Available [facility] ([facility]) [address] [place], [address], 01/24/2024 09:13:54 01/23/20 24 01/24/2024 CBC WITH DIFFE RENTI AL/PL ATELE T monocytes(ab solute) 0.5 x10e3 /uL 0.1-0. 9 Not Available [facility] ([facility]) [address] [facility] [address], [place], [address], 01/24/2024 09:13:54 01/23/20 24 01/24/2024 CBC WITH DIFFE RENTI AL/PL ATELE T eos (absolute) 0.2 x10e3 /uL 0.0-0. 4 Not Available [facility] ([facility]) [address] [facility] [address], [place], [address], 01/24/2024 09:13:54 01/23/20 24 01/24/2024 CBC WITH DIFFE RENTI AL/PL ATELE T baso (absolute) 0.1 x10e3 /uL 0.0-0. 2 Not Available [facility] ([facility]) [address] [facility], [place], [address], 01/24/2024 09:13:54 01/23/20 24 01/24/2024 CBC WITH DIFFE RENTI AL/PL ATELE T immature granulocytes 1 % notest ab. Not Available [facility] ([facility]) [address] [facility] [address], [place], [address], 01/24/2024 09:13:54 01/23/20 24 01/24/2024 CBC WITH DIFFE RENTI AL/PL ATELE T immature grans (abs) 0.0 x10e3 /uL 0.0-0. 1 Not Available [facility] ([facility]) [address] [facility] [address], [place], [address], 01/24/2024 09:13:54 01/27/20 24 01/27/2024 COLOG UARD cologuard result reportable No Result Obtain ed n/a There was insuf ficie nt stool DNA detec nena to produ ce a valid Colog uard resul t. The patie nt will be conta cted to initi ate a new sampl e colle ction . Not Available [employer] (Cologuard Orders Only) [address], [place], [address], 02/03/2024 22:06:46 02/11/20 24 02/11/2024 COLOG UARD cologuard result reportable Negati ve negati ve normal NEGAT DANIEL TEST RESUL T. A negat daniel Colog uard resul t indic ates a low likel ihood that a color ectal cance r (CRC) or advan bethel adeno ma (abdirashid omato us polyp s with more advan bethel pre-m align ant featu res) is prese nt. The [facility] emergency department e that a perso n with a negat daniel Colog uard test has a color ectal cance r is less than 1 in 1500 (nega tive predi ctive value >99.9 %) or has an advan bethel adeno ma is less than 5.3% (nega tive predi ctive value 94.7% ). These data are based on a prosp ectiv e cross -sect ional study of 10,00 0 indiv idual s at [facility] risk for color ectal cance r who were scree liberty with both Colog uard and colon oscop y. (Hina Scott. et al, N Engl J Med 2014; 370(1 4):12 86-12 97) The soraya l value (refe rence range ) for this assay is negat daniel. COLOG UARD RE-SC REENI NG RECOM MENDA TION: Perio dic color ectal cance r scremyrtle lylesg is an impor tant part of preve ntive healt hcare for asymp tomat ic indiv idual s at [facility] risk for color ectal cance r. Follo wing a negat daniel Colog uard resul t, the Ameri can Cance r Socie ty and U.S. Multi -Soci ety Task Force scree sandie guide lines recom mend a Colog uard re-sc reeni ng inter tyson of 3 years . Refer ences : Lori can Cance r Socie ty Guide line for Color ectal Cance r Scree sandie: https ://annette w.can cer.o rg/ca ncer/ colon -rect al-ca ncer/ detec tion- diagn osis- stagi ng/ac s-rec ommen datio ns.ht ml.; Ag DK, Jacqueline loco CR, Miah EsparzaK, Color ectal Cance r Scree sandie: Recom menda tions for Physi cians and Patie nts from the U.S. Multi -Soci ety Task Force on Color ectal Cance r Scree sandie , Am J Gastr oente rolog y 2017; 112:1 016-1 030. TEST DESCR IPTIO N: [place] site algor ithmi c ailin sis of stool DNA-b michelle ybarra with hemog lobin immun oassa y. Quant itati ve value s of indiv idual bioma rkers are not repor table and are not assoc iated with indiv idual bioma rker resul t refer ence range s. Colog uard is inten ded for color ectal cance r scree sandie of adult s of eithe r sex, 45 years or older , who are at [facility] for color ectal cance r (CRC) . Colog uard has been appro saud for use by the U.[place]. FDA. The perfo rmanc e of Colog uard was estab lishe d in a cross secti onal study of [facility] adult s aged 50-84 . Colog uard perfo rmanc e in patie nts ages 45 to 49 years was estim ated by sub-g roup ailin sis of near- age group s. Colon oscop ies perfo rmed for a posit daniel resul t may find as the most clini harish signi carmen baer n: color ectal cance r [4.0% ], advan bethel adeno ma (incl uding sessi le dwight nena polyp s great er than or equal to 1cm diame ter) [20%] or non- advan bethel adeno ma [31%] ; or no color ectal neopl nickolas [45%] . These estim ates are deriv ed from a prosp ectiv e cross -sect ional scree sandie study of , 0 [facility] ectal cance r who were scree liberty with both Colog uard and colon oscop y. (Hina Juarez al, N Engl J Med 2014; 370(1 4):12 86-12 97.) Colog uard may produ ce a false negat daniel or false posit daniel resul t (no color ectal cance r or preca ncero us polyp prese nt at colon oscop y follo w up). A negat daniel Colog uard test resul t does not guara ntee the absen ce of CRC or advan bethel adeno ma (pre- cance r). The curre nt Colog uard scree asndie inter tyson is every 3 years . (Amer ican Cance r Socie ty and U.S. Multi -Soci ety Task Force ). Colog uard perfo rmanc e data in a 0 patie nt pivot al study using colon oscop y as the refer ence metho d can be acces sed at the follo wing locat ion: www.e xactl abs.c om/re nick . Addit ional descr iptio n of the Colog uard test proce ss, warni ngs and preca ution s can be found at www.c eligio prieto.c om. Not Available [facility] (Cologuard Orders Only) [address], [place], [address], 02/18/2024 21:27:01 Result Notes None recorded. Problems Name Problem SNOMED Code Status Onset Date Resolution Date Notes Provider Name and Address Organization Details Recorded Time Essential hypertension 17435145 Active 2023 Derrell French MD Attn: Ashli lares,[address] [facility], [place], [address], [facility] 4 16:25:57 Type 2 diabetes mellitus 12706613 Active 2023 Derrell French MD Attn: Ashli lares,[address] [facility], [place], [address], [place] [facility] 4 16:25:59 Gastroesophage al reflux disease without esophagitis 936529942 Active 2023 Derrell French MD Attn: Zuleymasteve lares,[address] [facility], [place], [address], [place] [facility] 4 16:27:56 Anxiety 55612976 Active 2023 Derrell French MD Attn: Ashli luda,[address] [facility], [place], [address], [place] [facility] 4 16:27:57 Chronic rhinitis 05519730 Active 2023 Derrell French MD Attn: Zuleymasteve lares,[address] [facility], [place], [address], [place] [facility] 4 16:28:00 Obesity 520681775 Active 2023 Derrell French MD Attn: Ashli luda,[address] [facility], [place], [address], [place] [facility] 4 16:28:01 Hyperlipidemia 38045557 Active 2023 Derrell French MD Attn: Ashli luda,[address] [facility], [place], [address], [place] [facility] 4 16:28:03 Problem Notes None recorded. Procedures Surgical History Date Name Laterality Status Provider Name and Address Organization Details Recorded Time Eye Surgery completed Daniel Romero MA [facility] 07/03/2023 16:48:54 Nasal sinus therapy completed Daniel Romero MA [facility] 07/03/2023 16:49:58 Imaging Results None recorded. Procedure Notes None recorded. Medical Equipment None Reported. Allergies No known drug allergies Medications Name Sig Start Date Stop Date Status Note LastModified by Organization Details LastModified Time metformin 500 mg tablet TAKE 2 TABLETS BY MOUTH TWICE DAILY active Not Available Not Available No t Available carvedilol 25 mg tablet TAKE 1/2 TABLET BY MOUTH TWICE DAILY active Not Available Not Available No t Available doxycycline hyclate 100 mg capsule TAKE 1 CAPSULE BY MOUTH TWICE DAILY FOR 7 DAYS 07/02 completed Not Available Not Available Not Available citalopram 40 mg tablet TAKE 1 TABLET BY MOUTH DAILY active Not Available Not Available No t Available atorvastati n 10 mg tablet TAKE 1 TABLET BY MOUTH DAILY active Not Available Not Available No t Available metoprolol tartrate 100 mg tablet TAKE 1 TABLET BY MOUTH TWICE DAILY active Not Available Not Available No t Available sulfamethox azole 800 mg-trimetho prim 160 mg tablet TAKE 1 TABLET BY MOUTH EVERY 12 HOURS FOR 10 DAYS 05/27 completed Not Available Not Available Not Available omeprazole 40 mg capsule,del ayed release TAKE 1 CAPSULE BY MOUTH EVERY DAY active Not Available Not Available No t Available amlodipine 10 mg tablet TAKE 1 TABLET BY MOUTH EVERY DAY 2024 active Not Available Not Available Not Avai lable montelukast 10 mg tablet TAKE 1 TABLET BY MOUTH DAILY active Not Available Not Available No t Available hydrochloro thiazide 25 mg tablet TAKE 1 TABLET BY MOUTH EVERY DAY 2023 active Not Available Not Available Not Avai lable mupirocin 2 % topical ointment APPLY TOPICALLY TO THE AFFECTED AREA TWICE DAILY 07/02 completed Not Available Not Available Not Available losartan 100 mg tablet TAKE 1 TABLET BY MOUTH EVERY DAY 2024 active Not Available Not Available Not Avai lable dapaglifloz in propanediol 5 mg tablet TAKE 1 TABLET BY MOUTH EVERY DAY 2024 active Not Available Not Available Not Avai lable Bydureon BCise 2 mg/0.85 mL subcutaneou s auto-inject or INJECT 2 MG UNDER THE SKIN ONE DAY A WEEK active Not Available Not Available No t Available Ozempic 0.25 mg or 0.5 mg (2 mg/1.5 mL) subcutaneou s pen injector inject 5mg weekly for 4wks then go to 1mg weekly for 4wks 04/29 completed Not Available Not Available Not Available Ozempic 1 mg/dose (4 mg/3 mL) subcutaneou s pen injector INJECT 1 MG UNDER THE SKIN EVERY WEEK active Not Available Not Available No t Available Ozempic 0.25 mg or 0.5 mg (2 mg/3 mL) subcutaneou s pen injector INJECT 0.5 MG UNDER THE SKIN EVERY WEEK FOR 3 WEEKS THEN GO TO 1MG WEEKLY. APPT NEEDED BEFORE NEXT FILL 04/29 completed Not Available Not Available Not Available Vitals Date Recorded Body weight Body mass index (BMI) Body height Oxygen saturation Oxygen saturation in Arterial blood by Pulse oximetry Heart rate Systolic blood pressure Diastolic blood pressure Provider Name and Address Organization Details Last Updated DateTime 4 317978. 11 g 45.3 kg/m2 187.96 cm 97 % 97 % 83 /min 162 mm[Hg] 90 mm[Hg] Daniel Romero MA [facility] 4 16:53:56 Date Recorded Body height Body mass index (BMI) Body weight Heart rate Oxygen saturation Oxygen saturation in Arterial blood by Pulse oximetry Systolic blood pressure Diastolic blood pressure Provider Name and Address Organization Details Last Updated DateTime 4 187.96 cm 47.4 kg/m2 210371. 58 g 90 /min 97 % 97 % 138 mm[Hg] 72 mm[Hg] Samantha Garibay MA [facility] 4 16:53:26 Date Recorded Body height Body mass index (BMI) Body weight Heart rate Oxygen saturation Oxygen saturation in Arterial blood by Pulse oximetry Systolic blood pressure Diastolic blood pressure Provider Name and Address Organization Details Last Updated DateTime 5 187.96 cm 46 kg/m2 322265. 43 g 91 /min 95 % 95 % 122 mm[Hg] 84 mm[Hg] Lexy Day MA [facility] 5 16:24:48 Social History Question Answer Notes LastModified by Organizat ion Details LastModified Time Tobacco Smoking Status Never Smoker Daniel Romero MA [facility] 07/03/2023 16:47:27 Do You Have An Advance Directive? No Information not available 01/22/2024 What Is Your Level Of Alcohol Consumption? Occasional Information not available 07/03/2023 Are You Blind Or Do You Have Difficulty Seeing? No Information not available 07/03/2023 What Is Your Level Of Caffeine Consumption? Occasional Information not available 07/03/2023 In The 14 Days Before Symptom Onset, Have You Had Close Contact With A [facility] COVID-[facility] While That Case Was Ill? No Information not available 01/22/2024 In The 14 Days Before Symptom Onset, Have You Had Close Contact With A Person Who Is Under Investigation For COVID-19 While That Person Was Ill? No Information not available 01/22/2024 Have You Been To An Area Known To Be High Risk For COVID-19? No Information not available 01/22/2024 Are You Currently Employed? Yes Information not available 07/03/2023 Are You Deaf Or Do You Have Serious Difficulty Hearing? No Information not available 07/03/2023 What Type Of Diet Are You Following? REGULAR Information not available 07/03/2023 What Is The Highest Grade Or Level Of School You Have Completed Or The Highest Degree You Have Received? [id number] Information not available 07/03/2023 What Is Your Occupation? [employer] Information not available 07/03/2023 Are There Any Guns Present In Your Home? No Information not available 07/03/2023 What Was The Date Of Your Most Recent Tobacco Screening? 05/27/2024 [email or web address] Information not available 05/27/2024 What Is Your Relationship Status? Single Information not available 07/03/2023 Do You Use Your Seat Belt Or Car Seat Routinely? Yes Information not available 07/03/2023 Do You Have Smoke And Carbon Monoxide Detectors In Your Home? Yes Information not available 07/03/2023 Do You Feel Stressed (tense, Restless, Nervous, Or Anxious, Or Unable To Sleep At Night)? [id number] Information not available 07/03/2023 Do You Use Any Illicit Or Recreational Drugs? No Information not available 07/03/2023 Do You Use Sunscreen Routinely? No Information not available 07/03/2023 Has Tobacco Cessation Counseling Been Provided? No Information not available 07/03/2023 Do You Or Have You Ever Used Any Other Forms Of Tobacco Or Nicotine? No Information not available 07/03/2023 Sex: Male Functional Status Question Answer Note LastModified by Organizat ion Details LastModified Time Are you able to care for yourself? Yes Information not available 07/03/2023 What is your exercise level? Occasional Information not available 07/03/2023 Mental Status None recorded. Family History Nothing Reported. Medical History Condition Response Coronary Artery Disease N Other N Atrial Fibrillation N High Blood Pressure Y Depression N COPD N Blood Clots N Anxiety Disorder Y Muscle, Joint, or Bone Problems N Acid Reflux (GERD) N Cancer N Stroke N High Cholesterol Y Liver Disease N Headaches N Kidney or Bladder Problems N Thyroid Problems N GI Problems N Skin Problems N Anemia N Heart Attack (CA) N Diabetes Y Seizures/Epilepsy N Asthma N Allergies N Hepatitis N Heart Failure N Osteoporosis N Past Encounters Encounter ID Performer Location Encounter Start Date Encounter Closed Date Diagnosis/Indication Diagnosis SNOMED-CT Code Diagnosis ICD10 Code Diagnosis Note [id number] Derrell French MD [facility] (Adult Med) [address] [place] [phone] 07/03/2023 16:28:51 07/03/2023 17:29:29 Essential hypertension 73228270 I10 Type 2 kamran betes mellitus 80113874 E11.9 Hyperlipidemia 67491802 E78.5 Obesity 990644747 E66.9 Chronic rhinitis 8734936 6 J31.0 Anxiety 84338846 F41.9 Gastroesop hageal reflux disease without esophagitis 426529052 K21.9 [id number] Derrell French MD [facility] [place] [address] [place] [phone] 01/22/2024 16:12:33 01/22/2024 17:26:24 Morbid obesity 985838391 E66.01 Essential hypertension 05662492 I10 Screening for malignant neoplasm of colon 748316054 Z12.11 Type 2 kamran betes mellitus 67774347 E11.9 Chronic rhinitis 6647813 6 J31.0 Anxiety 48202504 F41.9 Gastroesop hageal reflux disease without esophagitis 689611872 K21.9 Hyperlipidemia 53789412 E78.5 Obesity 909930857 E66.9 [id number] Derrell French MD [facility] [address] [place] [phone] 05/27/2024 16:07:53 05/27/2024 17:50:51 Body mass index 40+ - severely obese 736177230 Z68.42 Morbid obesity 261188448 E66.01 Essential hypertension 70595659 I10 Type 2 kamran betes mellitus 58113800 E11.9 Hyperlipidemia 47544382 E78.5 Sleep disorder 42046908 G47.9 Chronic rhinitis 0861960 6 J31.0 Anxiety 74225592 F41.9 Obesity 977343264 E66.9 Gastroesop hageal reflux disease without esophagitis 231200321 K21.9 Health Concerns Section Related Observation LastModified by Organization Detai ls LastModified Time None Recorded Concern Status LastModified by Organization Details LastModified Time None Recorded Advance Directives Directive N: Payers Encounter Date Sequence Insurance Name Policy Number Policy Albright Covered Member ID Albright Member ID Guarantor Name 07/03/2023 1 [place] [id number] Mynor Gloria [id number] Mynor Gloria 01/22/2024 1 [place] [id number] Mynor Gloria [id number] Mynor Gloria 05/27/2024 1 [place] [id number] Mynor Gloria [id number] Mynor Gloria Notes Date Note Type Note Provider Name and Address Organization Details Recorded Time 07/03/2023 text/html Hypertension no headache no dizziness blood pressure appropriate. Atorvastatin no polydipsia does not take his like he should anxiety citalopram be doing well. Rhinitis montelukast seems to be doing fine Derrell French MD Attn: [address] [place], [address], [facility] 07/13/2023 16:28:38 01/22/2024 text/html Hypertension no headache no dizziness blood pressure appropriate. Atorvastatin no polydipsia does not take his like he should anxiety citalopram be doing well. Rhinitis montelukast seems to be doing fine. Derrell French MD Attn: [address] [place], [address], [facility] 01/23/2024 11:46:30 05/27/2024 text/html follow up of his multiple medical problems. Hypertension blood pressure 122/84 asymptomatic with medications. Again weight playing a big issue. sleep apnea I believe mild by history but that was years ago diabetes no polyphagia polydipsia hypoglycemia but he is not taking his blood sugars like he should his rhinitis has been doing okay diet fair with regards to hyperlipidemia he was taking his atorvastatin without any side effects. GERD no nausea or vomiting Derrell French MD Attn: [address] [place], [address], [place] [facility] 05/29/2024 13:36:06
--- OUTSIDE RECORDS SUMMARY | 2024-06-16 07:55 | XMS_ITS | Data Portability ---
Author Organization [place] [facility] [employer], Main Office Address [address] [place] [address] Assessment Encounter Date Assessment Date Assessment LastModified by Organization Details LastModified Time 07/08/2022 07/08/2022 Consider switching injectable for diabetes he is not losing any weight on current strategy blood work ordered targets for blood pressure ideal body weight LDL and A1c discussed screenings and immunizations discussed follow-up 4 months. [email or web address] Not available 07/14/2022 13:11:44 02/10/2023 02/10/2023 Plastic surgery doxycycline blood work weight loss again discussed his diagnosis on chronic medical problems have been discussed follow-up 6 months but he will call me back if his cyst does not get completely resolved Not available 02/10/2023 17:52:34 Plan of Treatment Reminders Order Date Submit Date Provider Last Modified By Organization Details Last Modified Time Details Appointments None recorded. Lab glycohemog lobin, total, blood 2022 023 [facility] (Lab), [address] [place], [address], 21:02:46 CMP, serum or plasma 2022 023 [facility] (Lab), [address] [place], [address], 18:19:08 lipid panel, serum 2022 023 [facility] (Lab), [address] [place], [address], 10/16/202 3 18:19:18 CBC w/ auto diff 2022 023 [facility] (Lab), [address] [place], [address], 3 18:04:16 CBC w/ auto diff 2022 023 [facility] (Lab), [address] [place], [address], 3 17:59:10 lipid panel, serum 2022 023 [facility] (Lab), [address] [place], [address], 3 19:26:47 CMP, serum or plasma 2022 023 [facility] (Lab), [address] [place], [address], 3 19:26:53 glycohemog lobin, total, blood 2022 023 [facility] (Lab), [address] [place], [address], 3 19:59:16 albumin/cr eatinine, mass ratio, urine 2022 023 [facility] (Lab), [address] [place], [address], 3 16:20:55 Referral plastic surgeon referral 2022 023 CORINNE Fitzgerald MD, [address] [facility] [address], [place], [address], 3 11:49:03 Procedures None recorded. Surgeries None recorded. Imaging None recorded. Medication Orders None recorded. Patient TargetsNo targets recorded. Patient InstructionsNo instructions recorded. Reason for Referral Plastic Surgeon Referral for Sebaceous cyst of skin Referring Physician: Tim French, Internal Medicine, Encounter Date: 02/10/2023 Results Created Date Observation Date Name Description Value Unit Range Abnormal Flag Note LastModifiedBy Organization Detail LastModifiedTime 02/23/20 21 02/22/2021 HEMOG LOBIN A1C HA1C 6.4 % 4.0-6. 0 high Diabe michael Scree sandie Crite luz elena: <5.7% Consi stent with absen ce of diabe michael 5.7-6 .4% Consi stent with incre ased risk for diabe michael (pred iabet es) >OR=6 .5% Consi stent with diabe michael REFER ENCE: Diabe michael Care 2016, 39(Weldon ppl.1 ):s13 -s22 Not Available [facility] (Lab) [address] [place], [address], 02/22/2021 21:55:38 02/23/20 21 02/22/2021 LIPID PANEL cholesterol 170 mg/dL 140-19 9 NIH MAYRA NSUS RECOM MENDA TION FOR LEV STERO L: ADULT CHILD LOW RISK: <200 <170 BORDE RLINE : <200- 239 ----- HIGH RISK: >240 >200 Not Available [facility] (Lab) [address] [place], [address], 02/22/2021 18:10:38 02/23/20 21 02/22/2021 LIPID PANEL triglyceride s 200 mg/dL 0-150 high NIH MAYRA NSUS REPOR T RECOM MENDA TION FOR TRIGL YCERI BETTY: ADULT CHILD LOW RISK: <150 ----- BODER LINE: 150-1 99 ----- HIGH RISK: >200 ----- Not Available [facility] (Lab) [address] [place], [address], 02/22/2021 18:10:38 02/23/20 21 02/22/2021 LIPID PANEL HDL cholesterol 42 mg/dL 40- Not Available [facility] (Lab) [address] [place], [address], 02/22/2021 18:10:38 02/23/20 21 02/22/2021 LIPID PANEL LDL cholesterol, calculated 88 mg/dL 0-130 NIH MAYRA NSUS REPOR T RECOM MENDA TIONS FOR LDL: ADULT CHILD LOW RISK <130 <110 (OPTI MAL LDL) <100 ----- BORDE RLINE : 130-1 59 ----- HIGH RISK: >160 >130 A TRIGL YCERI DE RESUL T >400 INVAL IDATE S THE CALCU LATIO N FOR LDL FRACT IONAT ION - THE LDL RESUL T WILL NOT BE REPOR BALJEET. Not Available [facility] (Lab) [address] [place], [address], 02/22/2021 18:10:38 02/23/20 21 02/22/2021 COMPR EHENS DANIEL METAB OLIC PANEL glucose 149 mg/dL 70-99 high Not Available [facility] (Lab) [address] [place], [address], 02/22/2021 18:10:36 02/23/20 21 02/22/2021 COMPR EHENS DANIEL METAB OLIC PANEL sodium 139 mmol/ L 137-14 5 Not Available [facility] (Lab) [address] [place], [address], 02/22/2021 18:10:36 02/23/20 21 02/22/2021 COMPR EHENS DANIEL METAB OLIC PANEL potassium 4.1 mmol/ L 3.5-5. 1 Not Available [facility] (Lab) [address] [place], [address], 02/22/2021 18:10:36 02/23/20 21 02/22/2021 COMPR EHENS DANIEL METAB OLIC PANEL chloride 99 mmol/ L 98-107 Not Available [facility] (Lab) [address] [place], [address], 02/22/2021 18:10:36 02/23/20 21 02/22/2021 COMPR EHENS DANIEL METAB OLIC PANEL carbon dioxide 27 mmol/ L 22-30 Not Available [facility] (Lab) [address] [place], [address], 02/22/2021 18:10:36 02/23/20 21 02/22/2021 COMPR EHENS DANIEL METAB OLIC PANEL agap 17.1 mmol/ L 14-22 Not Available [facility] (Lab) [address] [place], [address], 02/22/2021 18:10:36 02/23/20 21 02/22/2021 COMPR EHENS DANIEL METAB OLIC PANEL BUN 14 mg/dL 8-19 Not Available [facility] (Lab) [address] [place], [address], 02/22/2021 18:10:36 02/23/20 21 02/22/2021 COMPR EHENS DANIEL METAB OLIC PANEL creatinine 0.77 mg/dL 0.66-1 .25 Not Available [facility] (Lab) [address] [place], [address], 02/22/2021 18:10:36 02/23/20 21 02/22/2021 COMPR EHENS DANIEL METAB OLIC PANEL GFR >60 Refer ence Range : [place] ge GFR Healt hy Adult : >60 mL/mi n/1.7 3 m2 Chron ic Kidne y Disea se: 15-60 mL/mi n/1.7 3 m2 Kidne y Failu re: <15/m L/min /1.73 m2 www.n iddk. nih.g ov MDRD study equat ion hasn' t been valid ated in child vicki <18 yrs of age, pregn ant women , the elder ly >85 yrs of age, or in some racia l or ethni c subgr oups, suc as Hispa nics. Outsi de the valid ated gemma eters , estim ated GFR is less accur ate requi ring clini dinesh judgm ent on a case by case basis . Clini dinesh inter preta tion for other races and ages must be made by the clini darian . Futhe rmore , any of th e limit ation s with the use of serum creat inine relat ed to nutri cade l statu s o r medic ation usage hasn' t accou nted for the MDRD Study equat ion. For perso ns < 18 yrs of age, a pedia tric GFR calcu lator can be locat ed on the [facility] websi te: https ://annette w.jae hammer.o rg/pr ofess ional s/kdo qi/gf r_cal culat or Not Available [facility] (Lab) [address] [place], [address], 02/22/2021 18:10:36 02/23/20 21 02/22/2021 COMPR EHENS DANIEL METAB OLIC PANEL alkaline phosphatase 45 U/L 38-126 Not Available [facility] (Lab) [address] [place], [address], 02/22/2021 18:10:36 02/23/20 21 02/22/2021 COMPR EHENS DANIEL METAB OLIC PANEL alanine aminotransfe rase 59 U/L 0-50 high Not Available [facility] (Lab) [address] [place], [address], 02/22/2021 18:10:36 02/23/20 21 02/22/2021 COMPR EHENS DANIEL METAB OLIC PANEL aspartate aminotransfe rase 37 U/L 15-46 Not Available [facility] (Lab) [address] [place], [address], 02/22/2021 18:10:36 02/23/20 21 02/22/2021 COMPR EHENS DANIEL METAB OLIC PANEL bilirubin, total 1.20 mg/dL 0.20-1 .30 Not Available [facility] (Lab) [address] [place], [address], 02/22/2021 18:10:36 02/23/20 21 02/22/2021 COMPR EHENS DANIEL METAB OLIC PANEL calcium 9.8 mg/dL 8.4-10 .2 Not Available [facility] (Lab) [address] [place], [address], 02/22/2021 18:10:36 02/23/20 21 02/22/2021 COMPR EHENS DANIEL METAB OLIC PANEL total protein 7.6 g/dL 6.3-8. 2 Not Available [facility] (Lab) [address] [place], [address], 02/22/2021 18:10:36 02/23/20 21 02/22/2021 COMPR EHENS DANIEL METAB OLIC PANEL albumin 4.6 g/dL 3.4-5. 0 Not Available [facility] (Lab) [address] [place], [address], 02/22/2021 18:10:36 02/23/20 21 02/22/2021 COMPR EHENS DANIEL METAB OLIC PANEL globulin 3.0 g/dL 2.6-4. 2 Not Available [facility] (Lab) [address] [place], [address], 02/22/2021 18:10:36 02/23/20 21 02/22/2021 COMPR EHENS DANIEL METAB OLIC PANEL A/G ratio 1.5 ratio 1.0-2. 0 Not Available [facility] (Lab) [address] [place], [address], 02/22/2021 18:10:36 02/24/20 21 02/23/2021 MICRO ALBUM N RNDM W/CRE AT RATIO ur creat 99.12 mg/dL REFER ENCE RANGE NOT ESTAB LISHE D FOR RANDO M URINE CREAT ININE Not Available [facility] (Lab) [address] [place], [address], 02/23/2021 12:20:39 02/24/20 21 02/23/2021 MICRO ALBUM N RNDM W/CRE AT RATIO microalb 102.8 mg/L 0.0-16 .6 high Not Available [facility] (Lab) [address] [place], [address], 02/23/2021 12:20:39 02/24/20 21 02/23/2021 MICRO ALBUM N RNDM W/CRE AT RATIO ratio 104 mcg/m g 0-29 high THE AMERI CAN DIABE MICHAEL ASSOC IATIO N DEFIN ES ABNOR MALIT IES IN ALBUM IN EXCRE TION FOLLO WS: CATEG ORY RESUL T (MCG/ MG CREAT ININE ) SETH L <30 MICRO ALBUM INURI A 30-29 9 CLINI DINESH ALBUM INURI A > OR = 300 THE ADA RECOM MENDS THAT 2 OF 2 SPECI MENS COLLE CTED WITHI N A 3- TO 6-MON TH PERIO D BE ABNOR MAL BEFOR E CONSI JENS G A PATIE NT TO HAVE CROSS ED ONE OF THESE DIAGN OSTIC THRES HOLDS . REFER ENCE: DIABE MICHAEL CARE, VOL. 26: S94-S 96, 2002 Not Available [facility] (Lab) [address] [place], [address], 02/23/2021 12:20:39 10/03/19 22 10/02/2021 HEMOG LOBIN A1C HA1C 6.3 % 4.0-6. 0 high Diabe michael Scree sandie Crite luz elena: <5.7% Consi stent with absen ce of diabe michael 5.7-6 .4% Consi stent with incre ased risk for diabe michael (pred iabet es) >OR=6 .5% Consi stent with diabe michael REFER ENCE: Diabe michael Care 2016, 39(Weldon ppl.1 ):s13 -s22 Not Available [facility] (Lab) [address] [place], [address], 10/02/2021 21:50:45 10/03/19 22 10/02/2021 LIPID PANEL cholesterol 152 mg/dL 140-19 9 NIH MAYRA NSUS RECOM MENDA TION FOR LEV STERO L: ADULT CHILD LOW RISK: <200 <170 BORDE RLINE : <200- 239 ----- HIGH RISK: >240 >200 Not Available [facility] (Lab) [address] [place], [address], 10/02/2021 19:21:49 10/03/19 22 10/02/2021 LIPID PANEL triglyceride s 141 mg/dL 0-150 NIH MAYRA NSUS REPOR T RECOM MENDA TION FOR TRIGL YCERI BETTY: ADULT CHILD LOW RISK: <150 ----- BODER LINE: 150-1 99 ----- HIGH RISK: >200 ----- Not Available [facility] (Lab) [address] [place], [address], 10/02/2021 19:21:49 10/03/19 22 10/02/2021 LIPID PANEL HDL cholesterol 42 mg/dL 40- Not Available [facility] (Lab) [address] [place], [address], 10/02/2021 19:21:49 10/03/19 22 10/02/2021 LIPID PANEL LDL cholesterol, calculated 82 mg/dL 0-130 NIH MAYRA NSUS REPOR T RECOM MENDA TIONS FOR LDL: ADULT CHILD LOW RISK <130 <110 (OPTI MAL LDL) <100 ----- BORDE RLINE : 130-1 59 ----- HIGH RISK: >160 >130 A TRIGL YCERI DE RESUL T >400 INVAL IDATE S THE CALCU LATIO N FOR LDL FRACT IONAT ION - THE LDL RESUL T WILL NOT BE REPOR BALJEET. Not Available [facility] (Lab) [address] [place], [address], 10/02/2021 19:21:49 10/03/19 22 10/02/2021 COMPR EHENS DANIEL METAB OLIC PANEL sodium 141 mmol/ L 137-14 5 Not Available [facility] (Lab) [address] [place], [address], 10/02/2021 19:21:44 10/03/19 22 10/02/2021 COMPR EHENS DANIEL METAB OLIC PANEL potassium 3.8 mmol/ L 3.5-5. 1 Not Available [facility] (Lab) [address] [place], [address], 10/02/2021 19:21:44 10/03/19 22 10/02/2021 COMPR EHENS DANIEL METAB OLIC PANEL chloride 102 mmol/ L 98-107 Not Available [facility] (Lab) [address] [place], [address], 10/02/2021 19:21:44 10/03/19 22 10/02/2021 COMPR EHENS DANIEL METAB OLIC PANEL carbon dioxide 29 mmol/ L 22-30 Not Available [facility] (Lab) [address] [place], [address], 10/02/2021 19:21:44 10/03/19 22 10/02/2021 COMPR EHENS DANIEL METAB OLIC PANEL anion gap 13.8 mmol/ L 14-22 low Not Available [facility] (Lab) [address] [place], [address], 10/02/2021 19:21:44 10/03/19 22 10/02/2021 COMPR EHENS DANIEL METAB OLIC PANEL glucose 134 mg/dL 70-99 high Not Available [facility] (Lab) [address] [place], [address], 10/02/2021 19:21:44 10/03/19 22 10/02/2021 COMPR EHENS DANIEL METAB OLIC PANEL BUN 12 mg/dL 8-19 Not Available [facility] (Lab) [address] [place], [address], 10/02/2021 19:21:44 10/03/19 22 10/02/2021 COMPR EHENS DANIEL METAB OLIC PANEL creatinine 0.98 mg/dL 0.66-1 .25 Not Available [facility] (Lab) [address] [place], [address], 10/02/2021 19:21:44 10/03/19 22 10/02/2021 COMPR EHENS DANIEL METAB OLIC PANEL bilirubin, total 0.70 mg/dL 0.20-1 .30 Not Available [facility] (Lab) [address] [place], [address], 10/02/2021 19:21:44 10/03/19 22 10/02/2021 COMPR EHENS DANIEL METAB OLIC PANEL GFR >60 Refer ence Range : [place] ge GFR Healt hy Adult : >60 mL/mi n/1.7 3 m2 Chron ic Kidne y Disea se: 15-60 mL/mi n/1.7 3 m2 Kidne y Failu re: <15/m L/min /1.73 m2 www.n iddk. nih.g ov The MDRD study equat ion has not been valid ated in child vicki <18 years of age; pregn ant women ; the elder ly >85 years of age; or in some racia l or ethni c subgr oups, such as Hisga nics. Outsi de the valid ated gemma eters , estim ated GFR is less accur ate, requi ring clini dinesh judgm ent on a case- by-ca se basis . Clini dinesh inter preta tion for other races and ages must be made by the clini darian. The MDRD study equat ion has not been valid ated for the evalu ation of serum creat inine relat ed to nutri cade l statu s or medic ation usage . For perso ns <18 years of age, a pedia tric GFR calcu lator is avail able on the F websi te: https ://annette hammer.o rg/pr ofess ional s/kdo qi/gf r_cal culat or Not Available [facility] (Lab) [address] [place], [address], 10/02/2021 19:21:44 10/03/19 22 10/02/2021 COMPR EHENS DANIEL METAB OLIC PANEL alkaline phosphatase 48 U/L 38-126 Not Available [facility] (Lab) [address] [place], [address], 10/02/2021 19:21:44 10/03/19 22 10/02/2021 COMPR EHENS DANIEL METAB OLIC PANEL alanine aminotransfe rase 50 U/L 0-50 Not Available [facility] (Lab) [address] [place], [address], 10/02/2021 19:21:44 10/03/19 22 10/02/2021 COMPR EHENS DANIEL METAB OLIC PANEL aspartate aminotransfe rase 32 U/L 15-46 Not Available [facility] (Lab) [address] [place], [address], 10/02/2021 19:21:44 10/03/19 22 10/02/2021 COMPR EHENS DANIEL METAB OLIC PANEL calcium 9.6 mg/dL 8.4-10 .2 Not Available [facility] (Lab) [address] [place], [address], 10/02/2021 19:21:44 10/03/19 22 10/02/2021 COMPR EHENS DANIEL METAB OLIC PANEL total protein 7.2 g/dL 6.3-8. 2 Not Available [facility] (Lab) [address] [place], [address], 10/02/2021 19:21:44 10/03/19 22 10/02/2021 COMPR EHENS DANIEL METAB OLIC PANEL albumin 4.6 g/dL 3.4-5. 0 Not Available [facility] (Lab) [address] [place], [address], 10/02/2021 19:21:44 10/03/19 22 10/02/2021 COMPR EHENS DANIEL METAB OLIC PANEL globulin 2.6 g/dL 2.6-4. 2 Not Available [facility] (Lab) [address] [place], [address], 10/02/2021 19:21:44 10/03/19 22 10/02/2021 COMPR EHENS DANIEL METAB OLIC PANEL A/G ratio 1.8 ratio 1.0-2. 0 Not Available [facility] (Lab) [address] [place], [address], 10/02/2021 19:21:44 10/03/19 22 10/02/2021 MICRO ALBUM N RNDM W/CRE AT RATIO ur creat 81.01 mg/dL REFER ENCE RANGE NOT ESTAB LISHE D FOR RANDO M URINE CREAT ININE Not Available [facility] (Lab) [address] [place], [address], 10/02/2021 19:19:37 10/03/19 22 10/02/2021 MICRO ALBUM N RNDM W/CRE AT RATIO microalbumin , urine 40.8 mg/L 0.0-16 .6 high Not Available [facility] (Lab) [address] [place], [address], 10/02/2021 19:19:37 10/03/19 22 10/02/2021 MICRO ALBUM N RNDM W/CRE AT RATIO microalbumin /creatinine ratio 50 mcg/m g 0-29 high THE AMERI CAN DIABE MICHAEL ASSOC IATIO N DEFIN ES ABNOR MALIT IES IN ALBUM IN EXCRE TION FOLLO WS: CATEG ORY RESUL T (MCG/ MG CREAT ININE ) SETH L <30 MICRO ALBUM INURI A 30-29 9 CLINI DINESH ALBUM INURI A > OR = 300 THE ADA RECOM MENDS THAT 2 OF 2 SPECI MENS COLLE CTED WITHI N A 3- TO 6-MON TH PERIO D BE ABNOR MAL BEFOR E CONSI JENS G A PATIE NT TO HAVE CROSS ED ONE OF THESE DIAGN OSTIC THRES HOLDS . REFER ENCE: DIABE MICHAEL CARE, VOL. 26: S94-S 96, JANUA RY 2002 Not Available [facility] (Lab) [address] [place], [address], 10/02/2021 19:19:37 07/09/19 23 07/08/2022 CBC/C OMPLE TE BLD COUNT W/DIF F white blood cells 8.0 x10'3 /uL 4.2-10 .8 Not Available [facility] (Lab) [address] [place], [address], 07/08/2022 17:59:10 07/09/19 23 07/08/2022 CBC/C OMPLE TE BLD COUNT W/DIF F red blood cells 6.10 x10'6 /uL 4.10-5 .80 high Not Available [facility] (Lab) [address] [place], [address], 07/08/2022 17:59:10 07/09/19 23 07/08/2022 CBC/C OMPLE TE BLD COUNT W/DIF F hemoglobin 16.4 g/dL 13.2-1 7.0 Not Available [facility] (Lab) [address] [place], [address], 07/08/2022 17:59:10 07/09/19 23 07/08/2022 CBC/C OMPLE TE BLD COUNT W/DIF F hematocrit 49.6 % 39.3-5 0.0 Not Available [facility] (Lab) [address] [place], [address], 07/08/2022 17:59:10 07/09/19 23 07/08/2022 CBC/C OMPLE TE BLD COUNT W/DIF F mean red cell volume 81.3 fL 80.0-9 7.0 Not Available [facility] (Lab) [address] [place], [address], 07/08/2022 17:59:10 0307/08/2022 CBC/C OMPLE TE BLD COUNT W/DIF F mean red cell hemoglobin 26.9 pg 27.0-3 3.0 low Not Available [facility] (Lab) [address] [place], [address], 07/08/2022 17:59:10 07/09/19 23 07/08/2022 CBC/C OMPLE TE BLD COUNT W/DIF F mean RBC HGB concentratio n 33.1 g/dL 31.0-3 6.0 Not Available [facility] (Lab) [address] [place], [address], 07/08/2022 17:59:10 07/09/19 23 07/08/2022 CBC/C OMPLE TE BLD COUNT W/DIF F red cell distribution width 13.2 % 11.8-1 5.5 Not Available [facility] (Lab) [address] [place], [address], 07/08/2022 17:59:10 07/09/19 23 07/08/2022 CBC/C OMPLE TE BLD COUNT W/DIF F platelets 295 x10'3 /uL 150-40 0 Not Available [facility] (Lab) [address] [place], [address], 07/08/2022 17:59:10 07/09/19 23 07/08/2022 CBC/C OMPLE TE BLD COUNT W/DIF F mean platelet volume 10.2 fL 9.0-12 .4 Not Available [facility] (Lab) [address] [place], [address], 07/08/2022 17:59:10 07/09/19 23 07/08/2022 CBC/C OMPLE TE BLD COUNT W/DIF F neutrophils 53.6 % 39.0-7 2.0 Not Available [facility] (Lab) [address] [place], [address], 07/08/2022 17:59:10 07/09/19 23 07/08/2022 CBC/C OMPLE TE BLD COUNT W/DIF F lymphocytes 33.0 % 16.0-4 7.0 Not Available [facility] (Lab) [address] [place], [address], 07/08/2022 17:59:10 07/09/19 23 07/08/2022 CBC/C OMPLE TE BLD COUNT W/DIF F monocytes 8.5 % 5.0-12 .0 Not Available [facility] (Lab) [address] [place], [address], 07/08/2022 17:59:10 07/09/19 23 07/08/2022 CBC/C OMPLE TE BLD COUNT W/DIF F eosinophils 3.9 % 1.0-7. 0 Not Available [facility] (Lab) [address] [place], [address], 07/08/2022 17:59:10 07/09/19 23 07/08/2022 CBC/C OMPLE TE BLD COUNT W/DIF F basophils 0.5 % 0.0-2. 0 Not Available [facility] (Lab) [address] [place], [address], 07/08/2022 17:59:10 07/09/19 23 07/08/2022 CBC/C OMPLE TE BLD COUNT W/DIF F immature granulocytes 0.5 % 0.00-0 .50 Not Available [facility] (Lab) [address] [place], [address], 07/08/2022 17:59:10 07/09/1907/08/2022 CBC/C OMPLE TE BLD COUNT W/DIF F neutrophils, absolute count 4.30 x10'3 /uL 1.5-8. 0 Not Available [facility] (Lab) [address] [place], [address], 07/08/2022 17:59:10 07/09/19 23 07/08/2022 CBC/C OMPLE TE BLD COUNT W/DIF F lymphocytes, absolute count 2.64 x10'3 /uL 1.07-3 .43 Not Available [facility] (Lab) [address] [place], [address], 07/08/2022 17:59:10 07/09/19 23 07/08/2022 CBC/C OMPLE TE BLD COUNT W/DIF F monocytes, absolute count 0.68 x10'3 /uL 0.29-0 .99 Not Available [facility] (Lab) [address] [place], [address], 07/08/2022 17:59:10 07/09/19 23 07/08/2022 CBC/C OMPLE TE BLD COUNT W/DIF F eosinophils, absolute count 0.31 x10'3 /uL 0.02-0 .53 Not Available [facility] (Lab) [address] [place], [address], 07/08/2022 17:59:10 07/09/19 23 07/08/2022 CBC/C OMPLE TE BLD COUNT W/DIF F basophils, absolute count 0.04 x10'3 /uL 0.01-0 .08 Not Available [facility] (Lab) [address] [place], [address], 07/08/2022 17:59:10 07/09/19 23 07/08/2022 CBC/C OMPLE TE BLD COUNT W/DIF F immature granulocytes ,absolute 0.04 x10'3 /uL 0.00-0 .05 Not Available [facility] (Lab) [address] [place], [address], 07/08/2022 17:59:10 07/09/19 23 07/08/2022 CBC/C OMPLE TE BLD COUNT W/DIF F nucleated red blood cells 0.0 % -0 Not Available [facility] (Lab) [address] [place], [address], 07/08/2022 17:59:10 07/09/1907/08/2022 CBC/C OMPLE TE BLD COUNT W/DIF F NRBC# 0.00 x10'3 /uL Not Available [facility] (Lab) [address] [place], [address], 07/08/2022 17:59:10 07/09/19 23 07/08/2022 MICRO ALBUM N RNDM W/CRE AT RATIO ur creat 98.99 mg/dL REFER ENCE RANGE NOT ESTAB LISHE D FOR RANDO M URINE CREAT ININE Not Available [facility] (Lab) [address] [place], [address], 07/08/2022 18:10:39 07/09/19 23 07/08/2022 MICRO ALBUM N RNDM W/CRE AT RATIO microalbumin , urine 112.6 mg/L 0.0-16 .6 high Not Available [facility] (Lab) [address] [place], [address], 07/08/2022 18:10:39 07/09/19 23 07/08/2022 MICRO ALBUM N RNDM W/CRE AT RATIO microalbumin /creatinine ratio 114 mcg/m g 0-29 high THE AMERI CAN DIABE MICHAEL ASSOC IATIO N DEFIN ES ABNOR MALIT IES IN ALBUM IN EXCRE TION FOLLO WS: CATEG ORY RESUL T (MCG/ MG CREAT ININE ) SETH L <30 MICRO ALBUM INURI A 30-29 9 CLINI DINESH ALBUM INURI A > OR = 300 THE ADA RECOM MENDS THAT 2 OF 2 SPECI MENS COLLE CTED WITHI N A 3- TO 6-MON TH PERIO D BE ABNOR MAL BEFOR E CONSI JENS G A PATIE NT TO HAVE CROSS ED ONE OF THESE DIAGN OSTIC THRES HOLDS . REFER ENCE: DIABE MICHAEL CARE, VOL. 26: S94-S 2002 Not Available [facility] (Lab) [address] [place], [address], 07/08/2022 18:10:39 07/09/1907/08/2022 LIPID PANEL cholesterol 146 mg/dL 140-19 9 NIH MAYRA NSUS RECOM MENDA TION FOR LEV STERO L: ADULT CHILD LOW RISK: <200 <170 BORDE RLINE : <200- 239 ----- HIGH RISK: >240 >200 Not Available [facility] (Lab) [address] [place], [address], 07/08/2022 19:26:47 07/09/19 23 07/08/2022 LIPID PANEL triglyceride s 251 mg/dL 0-150 high NIH MAYRA NSUS REPOR T RECOM MENDA TION FOR TRIGL YCERI BETTY: ADULT CHILD LOW RISK: <150 ----- BODER LINE: 150-1 99 ----- HIGH RISK: >200 ----- Not Available [facility] (Lab) [address] [place], [address], 07/08/2022 19:26:47 07/09/19 23 07/08/2022 LIPID PANEL HDL cholesterol 37 mg/dL 40- low Not Available [facility] (Lab) [address] [place], [address], 07/08/2022 19:26:47 07/09/19 23 07/08/2022 LIPID PANEL LDL cholesterol, calculated 59 mg/dL 0-130 NIH MAYRA NSUS REPOR T RECOM MENDA TIONS FOR LDL: ADULT CHILD LOW RISK <130 <110 (OPTI MAL LDL) <100 ----- BORDE RLINE : 130-1 59 ----- HIGH RISK: >160 >130 A TRIGL YCERI DE RESUL T >400 INVAL IDATE S THE CALCU LATIO N FOR LDL FRACT IONAT ION - THE LDL RESUL T WILL NOT BE REPOR BALJEET. Not Available [facility] (Lab) [address] [place], [address], 07/08/2022 19:26:47 07/09/19 23 07/08/2022 COMPR EHENS DANIEL METAB OLIC PANEL sodium 139 mmol/ L 137-14 5 Not Available [facility] (Lab) [address] [place], [address], 07/08/2022 19:26:53 07/09/19 23 07/08/2022 COMPR EHENS DANIEL METAB OLIC PANEL potassium 3.7 mmol/ L 3.5-5. 1 Not Available [facility] (Lab) [address] [place], [address], 07/08/2022 19:26:53 07/09/19 23 07/08/2022 COMPR EHENS DANIEL METAB OLIC PANEL chloride 101 mmol/ L 98-107 Not Available [facility] (Lab) [address] [place], [address], 07/08/2022 19:26:53 07/09/19 23 07/08/2022 COMPR EHENS DANIEL METAB OLIC PANEL carbon dioxide 27 mmol/ L 22-30 Not Available [facility] (Lab) [address] [place], [address], 07/08/2022 19:26:53 07/09/19 23 07/08/2022 COMPR EHENS DANIEL METAB OLIC PANEL anion gap 14.7 mmol/ L 14-22 Not Available [facility] (Lab) [address] [place], [address], 07/08/2022 19:26:53 07/09/19 23 07/08/2022 COMPR EHENS DANIEL METAB OLIC PANEL glucose 166 mg/dL 70-99 high Not Available [facility] (Lab) [address] [place], [address], 07/08/2022 19:26:53 07/09/19 23 07/08/2022 COMPR EHENS DANIEL METAB OLIC PANEL BUN 14 mg/dL 8-19 Not Available [facility] (Lab) [address] [place], [address], 07/08/2022 19:26:53 07/09/1907/08/2022 COMPR EHENS DANIEL METAB OLIC PANEL creatinine 0.82 mg/dL 0.66-1 .25 Not Available [facility] (Lab) [address] [place], [address], 07/08/2022 19:26:53 07/09/19 23 07/08/2022 COMPR EHENS DANIEL METAB OLIC PANEL GFR >60 Refer ence Range : [place] ge GFR Healt hy Adult : >60 mL/mi n/1.7 3 m2 Chron ic Kidne y Disea se: 15-60 mL/mi n/1.7 3 m2 Kidne y Failu re: <15/m L/min /1.73 m2 www.n iddk. nih.g ov The MDRD study equat ion has not been valid ated in child vicki <18 years of age; pregn ant women ; the elder ly >85 years of age; or in some racia l or ethni c subgr oups, such as Hisga nics. Outsi de the valid ated gemma eters , estim ated GFR is less accur ate, requi ring clini dinesh judgm ent on a case- by-ca se basis . Clini dinesh inter preta tion for other races and ages must be made by the clini darian. The MDRD study equat ion has not been valid ated for the evalu ation of serum creat inine relat ed to nutri cade l statu s or medic ation usage . For perso ns <18 years of age, a pedia tric GFR calcu lator is avail able on the [facility] websi te: https ://annette hammer.kelechi michael/pr erma willsonal s/kdo qi/gf r_cal culat or Not Available [facility] (Lab) [address] [place], [address], 07/08/2022 19:26:53 07/09/1907/08/2022 COMPR EHENS DANIEL METAB OLIC PANEL alkaline phosphatase 60 U/L 38-126 Not Available [facility] (Lab) [address] [place], [address], 07/08/2022 19:26:53 07/09/19 23 07/08/2022 COMPR EHENS DANIEL METAB OLIC PANEL alanine aminotransfe rase 83 U/L 0-50 high Not Available [facility] (Lab) [address] [facility] [place], [address], 07/08/2022 19:26:53 07/09/19 23 07/08/2022 COMPR EHENS DANIEL METAB OLIC PANEL aspartate aminotransfe rase 64 U/L 15-46 high Not Available [facility] (Lab) [address] [place], [address], 07/08/2022 19:26:53 07/09/19 23 07/08/2022 COMPR EHENS DANIEL METAB OLIC PANEL bilirubin, total 0.80 mg/dL 0.20-1 .30 Not Available [facility] (Lab) [address] [place], [address], 07/08/2022 19:26:53 07/09/19 23 07/08/2022 COMPR EHENS DANIEL METAB OLIC PANEL calcium 9.5 mg/dL 8.4-10 .2 Not Available [facility] (Lab) [address] [place], [address], 07/08/2022 19:26:53 07/09/19 23 07/08/2022 COMPR EHENS DANIEL METAB OLIC PANEL total protein 8.0 g/dL 6.3-8. 2 Not Available [facility] (Lab) [address] [facility] [place], [address], 07/08/2022 19:26:53 07/09/19 23 07/08/2022 COMPR EHENS DANIEL METAB OLIC PANEL albumin 4.8 g/dL 3.4-5. 0 Not Available [facility] (Lab) [address] [place], [address], 07/08/2022 19:26:53 07/09/19 23 07/08/2022 COMPR EHENS DANIEL METAB OLIC PANEL globulin 3.2 g/dL 2.6-4. 2 Not Available [facility] (Lab) [address] [place], [address], 07/08/2022 19:26:53 07/09/19 23 07/08/2022 COMPR EHENS DANIEL METAB OLIC PANEL A/G ratio 1.5 ratio 1.0-2. 0 Not Available [facility] (Lab) [address] [place], [address], 07/08/2022 19:26:53 07/09/19 23 07/08/2022 HEMOG LOBIN A1C HA1C 7.3 % 4.0-6. 0 high Diabe michael Scree sandie Crite luz elena: <5.7% Consi stent with absen ce of diabe michael 5.7-6 .4% Consi stent with incre ased risk for diabe michael (pred iabet es) >OR=6 .5% Consi stent with diabe michael REFER ENCE: Diabe michael Care 2016, 39(Weldon ppl.1 ):s13 -s22 Not Available [facility] (Lab) [address] [place], [address], 07/08/2022 19:59:16 02/11/20 23 02/10/2023 CBC/C OMPLE TE BLD COUNT W/DIF F white blood cells 7.1 x10'3 /uL 4.2-10 .8 Not Available [facility] (Lab) [address] [place], [address], 02/10/2023 18:04:16 02/11/20 23 02/10/2023 CBC/C OMPLE TE BLD COUNT W/DIF F red blood cells 5.76 x10'6 /uL 4.10-5 .80 Not Available [facility] (Lab) [address] [place], [address], 02/10/2023 18:04:16 02/11/2002/10/2023 CBC/C OMPLE TE BLD COUNT W/DIF F hemoglobin 16.0 g/dL 13.2-1 7.0 Not Available [facility] (Lab) [address] [place], [address], 02/10/2023 18:04:16 02/11/2002/10/2023 CBC/C OMPLE TE BLD COUNT W/DIF F hematocrit 47.6 % 39.3-5 0.0 Not Available [facility] (Lab) [address] [place], [address], 02/10/2023 18:04:16 02/11/2002/10/2023 CBC/C OMPLE TE BLD COUNT W/DIF F mean red cell volume 82.6 fL 80.0-9 7.0 Not Available [facility] (Lab) [address] [place], [address], 02/10/2023 18:04:16 02/11/2002/10/2023 CBC/C OMPLE TE BLD COUNT W/DIF F mean red cell hemoglobin 27.8 pg 27.0-3 3.0 Not Available [facility] (Lab) [address] [place], [address], 02/10/2023 18:04:16 02/11/2002/10/2023 CBC/C OMPLE TE BLD COUNT W/DIF F mean RBC HGB concentratio n 33.6 g/dL 31.0-3 6.0 Not Available [facility] (Lab) [address] [place], [address], 02/10/2023 18:04:16 02/11/2002/10/2023 CBC/C OMPLE TE BLD COUNT W/DIF F red cell distribution width 13.2 % 11.8-1 5.5 Not Available [facility] (Lab) [address] [place], [address], 02/10/2023 18:04:16 02/11/2002/10/2023 CBC/C OMPLE TE BLD COUNT W/DIF F platelets 269 x10'3 /uL 150-40 0 Not Available [facility] (Lab) [address] [place], [address], 02/10/2023 18:04:16 02/11/2002/10/2023 CBC/C OMPLE TE BLD COUNT W/DIF F mean platelet volume 10.0 fL 9.0-12 .4 Not Available [facility] (Lab) [address] [place], [address], 02/10/2023 18:04:16 02/11/2002/10/2023 CBC/C OMPLE TE BLD COUNT W/DIF F neutrophils 57.4 % 39.0-7 2.0 Not Available [facility] (Lab) [address] [place], [address], 02/10/2023 18:04:16 02/11/2002/10/2023 CBC/C OMPLE TE BLD COUNT W/DIF F lymphocytes 28.7 % 16.0-4 7.0 Not Available [facility] (Lab) [address] [place], [address], 02/10/2023 18:04:16 02/11/2002/10/2023 CBC/C OMPLE TE BLD COUNT W/DIF F monocytes 7.9 % 5.0-12 .0 Not Available [facility] (Lab) [address] [place], [address], 02/10/2023 18:04:16 02/11/2002/10/2023 CBC/C OMPLE TE BLD COUNT W/DIF F eosinophils 4.6 % 1.0-7. 0 Not Available [facility] (Lab) [address] [place], [address], 02/10/2023 18:04:16 02/11/2002/10/2023 CBC/C OMPLE TE BLD COUNT W/DIF F basophils 1.0 % 0.0-2. 0 Not Available [facility] (Lab) [address] [place], [address], 02/10/2023 18:04:16 02/11/2002/10/2023 CBC/C OMPLE TE BLD COUNT W/DIF F immature granulocytes 0.4 % 0.00-0 .50 Not Available [facility] (Lab) [address] [place], [address], 02/10/2023 18:04:16 02/11/2002/10/2023 CBC/C OMPLE TE BLD COUNT W/DIF F neutrophils, absolute count 4.08 x10'3 /uL 1.5-8. 0 Not Available [facility] (Lab) [address] [place], [address], 02/10/2023 18:04:16 02/11/2002/10/2023 CBC/C OMPLE TE BLD COUNT W/DIF F lymphocytes, absolute count 2.04 x10'3 /uL 1.07-3 .43 Not Available [facility] (Lab) [address] [place], [address], 02/10/2023 18:04:16 02/11/2002/10/2023 CBC/C OMPLE TE BLD COUNT W/DIF F monocytes, absolute count 0.56 x10'3 /uL 0.29-0 .99 Not Available [facility] (Lab) [address] [place], [address], 02/10/2023 18:04:16 02/11/2002/10/2023 CBC/C OMPLE TE BLD COUNT W/DIF F eosinophils, absolute count 0.33 x10'3 /uL 0.02-0 .53 Not Available [facility] (Lab) [address] [place], [address], 02/10/2023 18:04:16 02/11/2002/10/2023 CBC/C OMPLE TE BLD COUNT W/DIF F basophils, absolute count 0.07 x10'3 /uL 0.01-0 .08 Not Available [facility] (Lab) [address] [place], [address], 02/10/2023 18:04:16 02/11/2002/10/2023 CBC/C OMPLE TE BLD COUNT W/DIF F immature granulocytes ,absolute 0.03 x10'3 /uL 0.00-0 .05 Not Available [facility] (Lab) [address] [place], [address], 02/10/2023 18:04:16 02/11/2002/10/2023 CBC/C OMPLE TE BLD COUNT W/DIF F nucleated red blood cells 0.0 % -0 Not Available [facility] (Lab) [address] [place], [address], 02/10/2023 18:04:16 02/11/2002/10/2023 CBC/C OMPLE TE BLD COUNT W/DIF F NRBC# 0.00 x10'3 /uL Not Available [facility] (Lab) [address] [place], [address], 02/10/2023 18:04:16 02/11/2002/10/2023 COMPR EHENS DANIEL METAB OLIC PANEL sodium 141 mmol/ L 137-14 5 Not Available [facility] (Lab) [address] [place], [address], 02/10/2023 18:19:08 02/11/2002/10/2023 COMPR EHENS DANIEL METAB OLIC PANEL potassium 3.8 mmol/ L 3.5-5. 1 Not Available [facility] (Lab) [address] [place], [address], 02/10/2023 18:19:08 02/11/2002/10/2023 COMPR EHENS DANIEL METAB OLIC PANEL chloride 98 mmol/ L 98-107 Not Available [facility] (Lab) [address] [place], [address], 02/10/2023 18:19:08 02/11/2002/10/2023 COMPR EHENS DANIEL METAB OLIC PANEL carbon dioxide 31 mmol/ L 22-30 high Not Available [facility] (Lab) [address] [place], [address], 02/10/2023 18:19:08 02/11/2002/10/2023 COMPR EHENS DANIEL METAB OLIC PANEL anion gap 15.8 mmol/ L 14-22 Not Available [facility] (Lab) [address] [place], [address], 02/10/2023 18:19:08 02/11/2002/10/2023 COMPR EHENS DANIEL METAB OLIC PANEL glucose 232 mg/dL 70-99 high Not Available [facility] (Lab) [address] [place], [address], 02/10/2023 18:19:08 02/11/2002/10/2023 COMPR EHENS DANIEL METAB OLIC PANEL BUN 12 mg/dL 8-19 Not Available [facility] (Lab) [address] [place], [address], 02/10/2023 18:19:08 02/11/20 23 02/10/2023 COMPR EHENS DANIEL METAB OLIC PANEL creatinine 0.80 mg/dL 0.66-1 .25 Not Available [facility] (Lab) [address] [place], [address], 02/10/2023 18:19:08 02/11/2002/10/2023 COMPR EHENS DANIEL METAB OLIC PANEL GFR >60 Refer ence Range : [place] ge GFR Healt hy Adult : >60 mL/mi n/1.7 3 m2 Chron ic Kidne y Disea se: 15-60 mL/mi n/1.7 3 m2 Kidne y Failu re: <15/m L/min /1.73 m2 www.n iddk. nih.g ov The MDRD study equat ion has not been valid ated in child vicki <18 years of age; pregn ant women ; the elder ly >85 years of age; or in some racia l or ethni c subgr oups, such as Hispa nics. Outsi de the valid ated gemma eters , estim ated GFR is less accur ate, requi ring clini dinesh judgm ent on a case- by-ca se basis . Clini dinesh inter preta tion for other races and ages must be made by the clini darian. The MDRD study equat ion has not been valid ated for the evalu ation of serum creat inine relat ed to nutri cade l statu s or medic ation usage . For perso ns <18 years of age, a pedia tric GFR calcu lator is avail able on the [facility] websi te: https ://annette hammer.o rg/pr ofess ional s/kdo qi/gf r_cal culat or Not Available [facility] (Lab) [address] [place], [address], 02/10/2023 18:19:08 02/11/2002/10/2023 COMPR EHENS DANIEL METAB OLIC PANEL alkaline phosphatase 53 U/L 38-126 Not Available [facility] (Lab) [address] [place], [address], 02/10/2023 18:19:08 1002/10/2023 COMPR EHENS DANIEL METAB OLIC PANEL alanine aminotransfe rase 67 U/L 0-50 high Not Available [facility] (Lab) [address] [place], [address], 02/10/2023 18:19:08 02/11/2002/10/2023 COMPR EHENS DANIEL METAB OLIC PANEL aspartate aminotransfe rase 47 U/L 15-46 high Not Available [facility] (Lab) [address] [place], [address], 02/10/2023 18:19:08 02/11/2002/10/2023 COMPR EHENS DANIEL METAB OLIC PANEL bilirubin, total 0.90 mg/dL 0.20-1 .30 Not Available [facility] (Lab) [address] [place], [address], 02/10/2023 18:19:08 02/11/2002/10/2023 COMPR EHENS DANIEL METAB OLIC PANEL calcium 10.0 mg/dL 8.4-10 .2 Not Available [facility] (Lab) [address] [place], [address], 02/10/2023 18:19:08 02/11/2002/10/2023 COMPR EHENS DANIEL METAB OLIC PANEL total protein 7.5 g/dL 6.3-8. 2 Not Available [facility] (Lab) [address] [place], [address], 02/10/2023 18:19:08 02/11/2002/10/2023 COMPR EHENS DANIEL METAB OLIC PANEL albumin 4.7 g/dL 3.4-5. 0 Not Available [facility] (Lab) [address] [place], [address], 02/10/2023 18:19:08 02/11/2002/10/2023 COMPR EHENS DANIEL METAB OLIC PANEL globulin 2.8 g/dL 2.6-4. 2 Not Available [facility] (Lab) [address] [place], [address], 02/10/2023 18:19:08 02/11/20 23 02/10/2023 COMPR EHENS DANIEL METAB OLIC PANEL A/G ratio 1.7 ratio 1.0-2. 0 Not Available [facility] (Lab) [address] [place], [address], 02/10/2023 18:19:08 02/11/2002/10/2023 LIPID PANEL cholesterol 161 mg/dL 140-19 9 NIH MAYRA NSUS RECOM MENDA TION FOR LEV STERO L: ADULT CHILD LOW RISK: <200 <170 BORDE RLINE : <200- 239 ----- HIGH RISK: >240 >200 Not Available [facility] (Lab) [address] [place], [address], 02/10/2023 18:19:18 02/11/2002/10/2023 LIPID PANEL triglyceride s 231 mg/dL 0-150 high NIH MAYRA NSUS REPOR T RECOM MENDA TION FOR TRIGL YCERI BETTY: ADULT CHILD LOW RISK: <150 ----- BODER LINE: 150-1 99 ----- HIGH RISK: >200 ----- Not Available [facility] (Lab) [address] [place], [address], 02/10/2023 18:19:18 02/11/2002/10/2023 LIPID PANEL HDL cholesterol 40 mg/dL 40- Not Available [facility] (Lab) [address] [place], [address], 02/10/2023 18:19:18 02/11/2002/10/2023 LIPID PANEL LDL cholesterol, calculated 75 mg/dL 0-130 NIH MAYRA NSUS REPOR T RECOM MENDA TIONS FOR LDL: ADULT CHILD LOW RISK <130 <110 (OPTI MAL LDL) <100 ----- BORDE RLINE : 130-1 59 ----- HIGH RISK: >160 >130 A TRIGL YCERI DE RESUL T >400 INVAL IDATE S THE CALCU LATIO N FOR LDL FRACT IONAT ION - THE LDL RESUL T WILL NOT BE REPOR BALJEET. Not Available [facility] (Lab) [address] [place], [address], 02/10/2023 18:19:18 02/11/20 23 02/10/2023 HEMOG LOBIN A1C HA1C 7.6 % 4.0-6. 0 high Diabe michael Scree sandie Crite luz elena: <5.7% Consi stent with absen ce of diabe michael 5.7-6 .4% Consi stent with incre ased risk for diabe michael (pred iabet es) >OR=6 .5% Consi stent with diabe michael REFER ENCE: Diabe michael Care 2016, 39([place] ppl.1 ):s13 -s22 Not Available [facility] (Lab) [address] [place], [address], 02/10/2023 21:02:46 Result Notes None recorded. Problems Name Problem SNOMED Code Status Onset Date Resolution Date Notes Provider Name and Address Organization Details Recorded Time Sebaceous cyst of skin 779187187 Active 2022 Not Available [facility] 3 00:14:39 Cellulitis 421214080 Active Not Available [facility] 3 00:14:38 Acute sinusitis 22276642 Active 2022 Not Available [facility] 3 00:14:39 Blood glucose outside reference range 933960673 Active Not Available [facility] 3 00:14:39 Overweight 692395534 Active Not Available [facility] 3 00:14:39 Type 2 diabetes mellitus without complication 428083908 Active 2021 Not Available [facility] 3 00:14:39 Depressive disorder 33191666 Active Not Available [facility] 3 00:14:39 Sinusitis 72194668 Active Not Available [facility] 3 00:14:39 Dyslipidemia 237478201 Active 2016 Not Available [facility] 3 00:14:39 Obesity 084372180 Active 2018 Not Available [facility] 3 00:14:39 Upper respiratory infection 52440504 Active 2021 Not Available [facility] 3 00:14:39 Essential hypertension 61416822 Active Not Available [facility] 3 00:14:39 Strain of thoracic region 72129567 Active Not Available [facility] 3 00:14:39 Liver enzymes level above reference range 102439810 Active Not Available [facility] 3 00:14:39 Diabetes mellitus 64620248 Active Not Available [facility] 3 00:14:39 Gout 79746679 Active Not Available [facility] 3 00:14:39 Problem Notes None recorded. Procedures Surgical History Date Name Laterality Status Provider Name and Address Organization Details Recorded Time 0 excision of lipoma of shoulder completed Not Available [facility] 06/26/2022 03:20:17 5 Sinus Surgery completed Not Available [facility] 2022 03:20:17 Imaging Results None recorded. Procedure Notes None recorded. Medical Equipment None Reported. Allergies No known drug allergies Medications Name Sig Start Date Stop Date Status Note LastModified by Organization Details LastModified Time amoxicill in 500 mg capsule TAKE 1 CAPSULE BY MOUTH THREE TIMES DAILY 02/10 completed Not Available Not Available Not Available metformin 500 mg tablet TAKE 2 TABLETS BY MOUTH TWICE DAILY active Not Available Not Available No t Available carvedilo l 25 mg tablet TAKE 1/2 TABLET BY MOUTH TWICE DAILY active Not Available Not Available No t Available prednison e 10 mg tablet take 3 x 3 days 2x 3 days 1 x 3 days 11/04 completed Not Available Not Available Not Available doxycycli ne hyclate 100 mg capsule TAKE 1 CAPSULE BY MOUTH TWICE DAILY FOR 7 DAYS active Not Available Not Available No t Available clindamyc in HCl 300 mg capsule TAKE 1 CAPSULE BY MOUTH EVERY 6 HOURS FOR 10 DAYS active Not Available Not Available No t Available citalopra m 40 mg tablet TAKE 1 TABLET BY MOUTH DAILY active Not Available Not Available No t Available atorvasta tin 10 mg tablet TAKE 1 TABLET BY MOUTH EVERY DAY active Not Available Not Available No t Available metoprolo l tartrate 100 mg tablet TAKE 1 TABLET BY MOUTH TWICE DAILY active Not Available Not Available No t Available benzonata te 200 mg capsule Take 1 capsule 3 times a day by oral route as needed. active Not Available Not Available No t Available citalopra m 10 mg tablet TK 1 T PO QD 09/23 completed Not Available Not Available Not Available hydrocodo ne 5 mg-acetam inophen 325 mg tablet TAKE 1 TABLET BY MOUTH EVERY 6 HOURS NEEDED 07/08 completed Not Available Not Available Not Available prednison e 20 mg tablet Take 2 tablets every day by oral route for 7 days. active Not Available Not Available No t Available sertralin e 100 mg tablet TAKE 1 TABLET BY MOUTH EVERY DAY 03/14 completed Not Available Not Available Not Available Zithromax Z-Jonas 250 mg tablet Take 2 TABLEts the first day then 1/day 07/08 completed Not Available Not Available Not Available sulfameth oxazole 800 mg-trimet hoprim 160 mg tablet TAKE 1 TABLET BY MOUTH EVERY 12 HOURS active Not Available Not Available No t Available omeprazol e 40 mg capsule,d elayed release TAKE 1 CAPSULE BY MOUTH EVERY DAY active Not Available Not Available No t Available amoxicill in 500 mg tablet Take 1 tablet 3 times a day by oral route for 7 days. active Not Available Not Available No t Available glimepiri de 2 mg tablet TAKE 1 TABLET BY MOUTH EVERY DAY active Not Available Not Available No t Available citalopra m 20 mg tablet TK 1 T PO D 09/23 completed Not Available Not Available Not Available amlodipin e 10 mg tablet TAKE 1 TABLET BY MOUTH EVERY DAY active Not Available Not Available No t Available benzonata te 100 mg capsule TK 2 CS PO TID FOR 10 DAYS 06/23 completed Not Available Not Available Not Available hydrocodo ne 7.5 mg-acetam inophen 325 mg tablet TAKE ONE TABLET PO Q 4 H PRN active Not Available Not Available No t Available cephalexi n 500 mg capsule TK 1 C PO Q 6 H active Not Available Not Available No t Available erythromy stephane 5 mg/gram (0.5 %) eye ointment apply to eye TID x 1wk active Not Available Not Available No t Available lisinopri l 10 mg tablet TK 1 T PO QD active Not Available Not Available No t Available etodolac 400 mg tablet TK 1 T PO BID 02/22 completed Not Available Not Available Not Available monteluka st 10 mg tablet TAKE 1 TABLET BY MOUTH EVERY DAY active Not Available Not Available No t Available hydrochlo rothiazid e 25 mg tablet TAKE 1 TABLET BY MOUTH EVERY DAY 2022 active Not Available Not Available Not Avai lable mupirocin 2 % topical ointment APPLY TOPICALL Y TO THE AFFECTED AREA TWICE DAILY active Not Available Not Available No t Available furosemid e 20 mg tablet Take 1 tablet every day by oral route. 07/15 completed Not Available Not Available Not Available methylpre dnisolone 4 mg tablets in a dose pack TK PO UTD 07/15 completed Not Available Not Available Not Available losartan 100 mg tablet TAKE 1 TABLET BY MOUTH EVERY DAY active Not Available Not Available No t Available fluticaso ne propionat e 50 mcg/actua tion nasal spray,stephanie pension SHAKE LIQUID AND USE 2 SPRAYS IN EACH NOSTRIL EVERY DAY active Not Available Not Available No t Available Hibiclens 4 % topical liquid Apply by topical route. active Not Available Not Available No t Available amoxicill in 875 mg-potass ium clavulana te 125 mg tablet TK 1 T PO BID FOR 10 DAYS 06/23 completed Not Available Not Available Not Available omeprazol e 40 mg oral packet qd active Not Available Not Available Not Available ProAir HFA 90 mcg/actua tion aerosol inhaler Inhale 2 puffs 4 times a day by inhalati on route as directed . active Not Available Not Available No t Available Tekturna 300 mg tablet QD active Not Available Not Available Not Available Bystolic 20 mg tablet TAKE 1 TABLET BY MOUTH EVERY DAY 08/12 completed changed to Coreg Not Available Not Available Not Available Astepro 205.5 mcg (0.15 %) nasal spray [place] 1 spray twice a day by intranas al route. 03/29 completed Not Available Not Available Not Available Tekamlo 300 mg-10 mg tablet TAKE 1 TABLET BY MOUTH DAILY active Not Available Not Available No t Available Accu-Chek FastClix Lancing Device USE TO TEST BLOOD SUGAR TWICE DAILY active Not Available Not Available No t Available Accu-Chek SmartView Test Strips USE TO TEST BLOOD SUGAR BID active Not Available Not Available No t Available Accu-Chek Janessa FPD active Not Available Not Available Not Available Farxiga 5 mg tablet TAKE 1 TABLET BY MOUTH EVERY DAY active Not Available Not Available No t Available Bydureon BCise 2 mg/0.85 mL subcutane ous auto-inje ctor INJECT 2 MG UNDER THE SKIN ONE DAY A WEEK active Not Available Not Available No t Available Ozempic 0.25 mg or 0.5 mg (2 mg/1.5 mL) subcutane ous pen injector INJECT 0.5 MG UNDER THE SKIN EVERY WEEK 10/02 completed Not Available Not Available Not Available Ozempic 0.25 mg or 0.5 mg (2 mg/3 mL) subcutane ous pen injector active Not Available Not Available Not Available Vitals Date Recorded Body mass index (BMI) Body mass index (BMI) Body mass index (BMI) Body height Body height Body height Heart rate Heart rate Heart rate Body temperature Body temperature Body temperature Body weight Body weight Body weight Systolic blood pressure Diastolic blood pressure Systolic blood pressure Diastolic blood pressure Systolic blood pressure Diastolic blood pressure Provider Name and Address Organization Details Last Updated DateTime 3 44.3 kg/m2 45.3 kg/m2 46.5 kg/m2 187.96 cm 187.96 cm 187.96 cm 84 /min 90 /min 79 /min 97.2 [degF] 97.2 [degF] 97.9 [degF] 708687. 37 g 447421. 11 g 076815. 44 g 140 mm[Hg] 92 mm[Hg] 140 mm[Hg] 80 mm[Hg] 136 mm[Hg] 80 mm[Hg] Not Available [facility] 3 03:24:17 Date Recorded Body height Body mass index (BMI) Body weight Body temperature Heart rate Systolic blood pressure Diastolic blood pressure Provider Name and Address Organization Details Last Updated DateTime 3 187.96 cm 46.9 kg/m2 943967. 22 g 97.8 [degF] 79 /min 148 mm[Hg] 90 mm[Hg] PASCUAL Montes [place] - [facility] [place] [employer] [facility] 3 16:51:28 Date Recorded Body height Body mass index (BMI) Body weight Body temperature Heart rate Systolic blood pressure Diastolic blood pressure Provider Name and Address Organization Details Last Updated DateTime 3 187.96 cm 46.5 kg/m2 796098. 44 g 98.5 [degF] 86 /min 140 mm[Hg] 90 mm[Hg] PASCUAL Montes [place] - [facility] 3 16:31:57 Social History Question Answer Notes LastModified by Organization Details LastModified Time Tobacco Smoking Status Never Smoker Not Available [facility] 06/26/2022 03:08:57 Do You Have An Advance Directive? No [id number] Information not available 06/26/2022 What Is Your Level Of Alcohol Consumption? Occasional [id number] Information not available 06/26/2022 Do You Wear A Helmet When Biking? Yes [id number] Information not available 06/26/2022 What Is Your Level Of Caffeine Consumption? Occasional [id number] Information not available 06/26/2022 How Much Tobacco Do You Chew? None [email or web address] [id number] Information not available 06/26/2022 In The 14 Days Before Symptom Onset, Have You Had Close Contact With A Laboratory-confi rmed COVID-19 While That Case Was Ill? No [id number] Information not available 06/26/2022 In The 14 Days Before Symptom Onset, Have You Had Close Contact With A Person Who Is Under Investigation For COVID-19 While That Person Was Ill? No [email or web address] [id number] Information not available 06/26/2022 What Type Of Diet Are You Following? REGULAR MIGRATION.030 [id number] Information not available 06/26/2022 Which Illicit Or Recreational Drugs Have You Used? None MIGRATION.030 [id number] Information not available 06/26/2022 Do You Or Have You Ever Used E-cigarettes Or Vape? Never Used Electronic Cigarettes MIGRATION.030 [id number] Information not available 06/26/2022 What Is The Highest Grade Or Level Of School You Have Completed Or The Highest Degree You Have Received? 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 No MIGRATION.0301 [id number] Information not available 06/26/2022 What Is The Fluoride Status Of Your Home? Unknown MIGRATION.0301 [id number] Information not available 06/26/2022 Do You Use Insect Repellent Routinely? No MIGRATION.0301 [id number] Information not available 06/26/2022 Where Do You Live? [facility] MIGRATION.0301 [id number] Information not available 06/26/2022 Do You Have A Medical Power Of Rules Examiner? No MIGRATION.0301 [id number] Information not available 06/26/2022 What Was The Date Of Your Most Recent Tobacco Screening? 02/10/2023 [email or web address] Information not available 02/10/2023 Have You Ever Been Counseled For Unhealthy Alcohol Use? No MIGRATION.0301 [id number] Information not available 06/26/2022 Do You Have Any Pets? No MIGRATION.0301 [id number] Information not available 06/26/2022 What Is Your Relationship Status? Single MIGRATION.0301 [id number] Information not available 06/26/2022 Do You Use Your Seat Belt Or Car Seat Routinely? Yes MIGRATION.0301 [id number] Information not available 06/26/2022 Do You Have Smoke And Carbon Monoxide Detectors In Your Home? Yes MIGRATION.0301 [id number] Information not available 06/26/2022 Are You Passively Exposed To Smoke? No MIGRATION.0301 [id number] Information not available 06/26/2022 Do You Or Have You Ever Used Smokeless Tobacco? Never Used Smokeless Tobacco MIGRATION.0301 [id number] Information not available 06/26/2022 Are There Any Smokers In Your House? No MIGRATION.0301 [id number] Information not available 06/26/2022 How Much Tobacco Do You Smoke? No MIGRATION.0301 [id number] Information not available 06/26/2022 What Types Of Sporting Activities Do You Participate In? None MIGRATION.0301 [id number] Information not available 06/26/2022 Do You Feel Stressed (tense, Restless, Nervous, Or Anxious, Or Unable To Sleep At Night)? [id number] MIGRATION.0301 [id number] Information not available 06/26/2022 Do You Use Any Illicit Or Recreational Drugs? No MIGRATION.0301 [id number] Information not available 06/26/2022 Do You Use Sunscreen Routinely? No MIGRATION.0301 [id number] Information not available 06/26/2022 Has Tobacco Cessation Counseling Been Provided? No Not Needed-ne vilma Smoked MIGRATION.[id number] Information not available 06/26/2022 How Many Years Have You Smoked Tobacco? 0 MIGRATION.[id number] Information not available 06/26/2022 Have You Recently Traveled Abroad? No MIGRATION.[id number] Information not available 06/26/2022 Do You Have Any Dietary Restrictions? No MIGRATION.[id number] Information not available 06/26/2022 Do You Or Have You Ever Used Any Other Forms Of Tobacco Or Nicotine? No MIGRATION.[id number] Information not available 06/26/2022 Sex: Male Functional Status Question Answer Note LastModified by Organizat ion Details LastModified Time What is your exercise level? Occasional [id number] Information not available 06/26/2022 Mental Status None recorded. Family History Relationship Description Onset Age of this Age Resolved Age Notes LastModified by Organization Details LastModified Time Paternal Grandmother Diabetes mellitus MIGRATION.086 [id number] Not available 06/26/2022 03:20:20 Paternal Uncle Diabetes mellitus MIGRATION.397 [id number] Not available 06/26/2022 03:20:20 Medical History Condition Response BLINDNESS N NERVE DISEASE N RHEUMATIC FEVER N BLADDER PROBLEMS N KIDNEY STONES N MRSA N OTHER # 1 N POLIO N LUNG DISEASE/DISORDER N RADIATION / CHEMOTHERAPY N COPD N Other # 2 N BLOOD DISEASES N SURGERY N EAR OR HEARING PROBLEMS N MUMPS N DEPRESSION (INCLUDING POST ) N BOWEL PROBLEMS N STROKE/TIA N ULCERS N BENIGN PROSTATIC HYPERPLASIA N MEASLES N MYOCARDIAL INFARCTION N OBESITY Y GERD/NAUSEA N ANEURYSM N URINARY/BLADDER/KIDNEY PROBLEMS N CORONARY ARTERY DISEASE (CAD) N ADDICTION CONCERNS N Impotence N ENDOMETRIOSIS N USE OF BLOOD THINNERS N SKIN PROBLEMS N GASTROINTESTINAL DISORDER N PERIPHERAL VASCULAR DISEASE N MUSCLE,JOINT OR BONE PROBLEMS N GASTROINTESTINAL BLEEDING N BLOOD CLOTS N ASTHMA N CATARACTS N ERECTILE DYSFUNCTION N VARICOSITIES N GI PROBLEMS N Low Testosterone N INFERTILITY N AIDS/HIV N CHEMOTHERAPY / RADIATION N LIVER DISEASE N MALE HYPOGONADISM N HYPERTENSION Y Deficiency N ANXIETY DISORDER N BLOOD TRANSFUSION N ANEMIA/BLOOD DISORDER N CHRONIC EAR INFECTIONS N BRONCHITIS N TUBERCULOSIS N GLAUCOMA N FOOT PROBLEM N DIVERTICULITIS N SLEEP APNEA N CHICKENPOX N INFECTIOUS DISEASE N PROSTATE N HEART ARRHYTHMIA N INSOMNIA N HIGH CHOLESTEROL / HYPERLIPIDEMIA N EYE PROBLEMS N HYPERTHYROIDISM N NEUROLOGICAL PROBLEMS N EDEMA N CHRONIC PAIN SYNDROME N HYPOTHYROIDISM N CONSTIPATION N CAROTID BLOCKAGE N BACK / NECK PROBLEMS N HAVE YOU BEEN HOSPITALIZED OR SEEN IN [facility] ER IN THE PAST YEAR ? N ATHEROSCLEROSIS N BREAST PROBLEMS N DIALYSIS N ECZEMA N OSTEOPOROSIS N ARTHRITIS N APPENDICITIS N DIABETES, TYPE Y BAD TEETH N ENT N HEARTBURN / REFLUX N AUTISM SPECTRUM DISORDER (ASD) N HEPATITIS / LIVER DISEASE N GOUT Y SLEEP DISORDER N ALZHEIMER'S DISEASE N Brain Problems N DEMENTIA N HERPES N SEIZURES/EPILEPSY N HEADACHES/MIGRAINES N VASCULAR DISEASE N PACEMAKER N Blood Disorder N DIZZINESS N HEART DISEASE/HEART PROBLEMS N KIDNEY DISEASE N MULTIPLE SCLEROSIS N CANCER: SPECIFY N CARDIAC ARRHYTHMIA N ATRIAL FIBRILLATION N Gall Stones N PULMONARY EMBOLISM N AUTOIMMUNE DISEASE N Immunizations Vaccine Type Date Status Note Provider Nam e and Address Organization Details Recorded Time COVID-19, mRNA, LNP-S, PF, 30 mcg/0.3 mL dose 1 completed Not Available [facility] 02/12/2023 00:14:39 COVID-19, mRNA, LNP-S, PF, 30 mcg/0.3 mL dose 1 completed Not Available [facility] 02/12/2023 00:14:39 Influenza, split virus, quadrivalent, preservative 0 completed Not Available [facility] 02/12/2023 00:14:39 Influenza, split virus, quadrivalent, PF 2 completed Not Available [facility] 02/12/2023 00:14:39 Influenza, split virus, quadrivalent, PF 9 completed Not Available [facility] 02/12/2023 00:14:39 Past Encounters Encounter ID Performer Location Encounter Start Date Encounter Closed Date Diagnosis/Indication Diagnosis SNOMED-CT Code Diagnosis ICD10 Code Diagnosis Note [id number] [facility] [place] [address] [facility] [place] [address] 08/24/2020 00:00:00 08/24/2020 14:17:25 [id number] [facility] [address] , [facility] [address] [place] [address] 08/29/2020 00:00:00 08/29/2020 20:37:29 [id number] [facility] [address] [place] [address] [place] [address] 09/05/2020 00:00:00 09/05/2020 17:41:27 [id number] [facility] [address] [place] [address] [place] [address] 10/02/2020 00:00:00 10/02/2020 23:26:48 [id number] [facility] [address] [place] [address] [place] [place] [address] 02/22/2021 00:00:00 02/25/2021 21:05:37 [id number] [facility] [address] [place] [address] [place] [place] [address] 1 10/02/2021 00:00:00 10/02/2021 18:51:25 [id number] [facility] [address] [place], [place] [address]my[place]., [place] [address] 02/26/2022 00:00:00 02/26/2022 22:43:55 [id number] Tim French MD [facility] [address] [place] [address] [place]., [place] [address] 1 07/08/2022 16:08:57 07/08/2022 17:15:21 Diabetes mellitus 67112472 E11.9 Essential hypertension 23207679 I10 Dyslipidemia 048613509 E 78.5 Obesity 524233058 E66.9 Gout 69607022 M10.9 [id number] Tim French MD [facility] [address] [place] [address] [place] [address] 02/10/2023 16:16:30 02/10/2023 17:11:55 Dyslipidemia 059159838 E78.5 Essential hypertension 48688668 I10 Sebaceous cyst of skin 435702527 L72.3 Type 2 kamran betes mellitus without complication 164108406 E11.9 Obesity 301993332 E66.9 Health Concerns Section Related Observation LastModified by Organization Detai ls LastModified Time None Recorded Concern Status LastModified by Organization Details LastModified Time None Recorded Advance Directives Directive N: Payers Encounter Date Sequence Insurance Name Policy Number Policy Albright Covered Member ID Albright Member ID Guarantor Name 07/08/2022 1 [employer] [id number] Mynor Gloria [id number] Mynor Gloria 02/10/2023 1 [employer] [id number] Mynor Gloria [id number] Mynor Gloria Notes Date Note Type Note Provider Name and Address Organization Details Recorded Time 07/08/2022 text/html Gout no flare-upsDyslipidemia taking medication could do better with exerciseObesity not making good strides thereHypertension no headache no dizzinessDiabetes up and down but no polyphagia polydipsia no hypoglycemic spells Tim French MD [address], [place] [address], [place], [address], [employer] 07/14/2022 13:12:01 02/10/2023 text/html Gout no flare-upsDyslipidemia taking medication could do better with exerciseObesity not making good strides thereHypertension no headache no dizzinessDiabetes up and down but no polyphagia polydipsia no hypoglycemic spellsInfected area on the top of his head for 1-2 weeks Tim French MD [address] [place] [address], [place], [address], [employer] 02/10/2023 17:53:09
--- NOTE | 2024-06-20 18:06 | WPDHOMESLEEP ---
Sleep Study - Home Unattended Date of Study: 06/16/24 Ordering Provider: Tim French, Interpreting Provider: Cathy Ramon MD Home Sleep Study Type: Watch PAT Height: 1.88 m Weight: 162.386 kg Body Mass Index: 45.9 Neck Circumference (inches): 17.25 [place]: 0 Reason for Sleep Study Loud snoring, waking in the night Sleep History Mynor Gloria is a 44-year-old man with loud snoring. His medical comorbidities include hypertension, diabetes mellitus type 2, chronic rhinitis, anxiety, GERD without esophagitis, and hyperlipidemia. He does not report having apneas at night and other people do not tell him that he has apneas at night. He does not choke or gasp at night. He does not have trouble breathing when he sleeps on his back. He does not have a morning headache. He does have a dry mouth in the morning. He does not have heartburn at night. He wakes twice most nights to urinate. He had a prior sleep test in 2003, did not have sleep apnea. The night of this home sleep study, he woke up twice during the night. He required 45 minutes to fall asleep. He woke up at 5:15 a.m. using an alarm. He does not use medication to get to sleep. He often has difficulty falling asleep and staying asleep. If he wakes during the night, he may have difficulty returning to sleep. He does not feel anxious about his sleep. He does not dream during daytime naps, does not have vivid hallucinations or dreamlike scenes on falling asleep or upon awakening. He does not feel paralyzed on waking or falling asleep. He does not have muscle weakness with strong emotion. He does not grind his teeth are clenches jaws at night. He does not have a restless feeling in his legs at night. He does not kick or jerk his legs excessively. He does not have daytime fatigue and he is not excessively sleepy during the day. He does not have an urge to fall asleep during the day. He does not have drowsy driving. Normal bedtime is 11:00 a.m., falling asleep within 30 minutes, waking spends 8 hours in bed, 6 hours sleeping. On days off his bedtime is 11:45 p.m., requires about 45 minutes to fall asleep, spends 10 hours in bed and 7 hours sleeping. His sleep on his days off is somewhat restorative. He does not take naps. Habits:??Tobacco: Never smoker Alcohol: Occasional use PMF Past Medical History Medical History (Updated 06/20/24 @ 18:24 by Cathy Ramon MD) Anxiety Hypercholesterolemia Morbid obesity with BMI of 40.0-44.9, adult High cholesterol HTN (hypertension) GERD (gastroesophageal reflux disease) Acute depression Diabetes Surgical History Surgical History Mass of skin of right shoulder H/O sinus surgery Family History Family History Grandparent Diabetes mellitus Hypertension Grandparent Cancer Social History Social History Smoking status: Never smoker Alcohol intake: current Substance use: never Lack of Transportation: No Lack of Food: Never True Current Housing: I Have Housing Concerned About Future Housing: No Difficulty Paying Gas/Electric Bills: No Difficulty Paying for Meds: No Currently Unemployed: No Education: High School Diploma/GED Difficulty w/ Childcare or Family Care: No Living arrangements: alone Occupation/Education: occupation Gender identity (if verbalized by the patient): Male Medications Home Medications ?Medication ?Instructions ?Recorded ?Confirmed ?Type albuterol sulfate 90 mcg/actuation 1 inhalation inhalation Q4-6H PRN 09/08/19 03/17/23 History breath activated powder rescue inhaler,sensor (Proair Digihaler) amlodipine 10 mg tablet 10 mg PO DAILY 09/08/19 03/17/23 History atorvastatin 10 mg tablet 10 mg PO DAILY 09/08/19 03/17/23 History blood sugar diagnostic (Accu-Chek #10 ea 09/08/19 03/17/23 History Guide test strips) blood-glucose meter #1 ea 09/08/19 03/17/23 History carvedilol 25 mg tablet (Coreg) 25 mg PO Q12H 09/08/19 03/17/23 History citalopram 40 mg tablet 40 mg PO DAILY 09/08/19 03/17/23 History etodolac 400 mg tablet 400 mg PO BID 09/08/19 03/17/23 History glimepiride 2 mg tablet 2 mg PO QAM 09/08/19 03/17/23 History hydrochlorothiazide 25 mg tablet 25 mg PO DAILY 09/08/19 03/17/23 History lancets (Accu-Chek Fastclix Lancet #50 ea 09/08/19 03/17/23 History Drum) losartan 100 mg tablet 100 mg PO DAILY 09/08/19 03/17/23 History metformin 500 mg tablet 500 mg PO DAILY 09/08/19 03/17/23 History metoprolol succinate 100 mg 100 mg PO DAILY 09/08/19 03/17/23 History tablet,extended release 24 hr montelukast 10 mg tablet 10 mg PO DAILY 09/08/19 03/17/23 History omeprazole 40 mg capsule,delayed 40 mg PO DAILY 09/08/19 03/17/23 History release mupirocin 2 % topical ointment 1 applic topical BID #15 grams 03/17/23 03/17/23 Rx sulfamethoxazole 800 1 tablet PO Q12H #14 tabs 03/17/23 03/17/23 Rx mg-trimethoprim 160 mg tablet Sleep Procedure The sleep study was completed using SharingforceT a technically adequate device with seven channels: peripheral arterial tone, actigraphy, body position, snore, respiratory movement, pulse oximetry, sleep staging, and heart rate. Prior to using the device, the patient received verbal and written instructions for its application and was provided with the help desk phone number for additional telephonic instruction with 24-hour availability of qualified personnel to answer questions. Sleep Architecture The total recording time is 7 hrs, 18 min. The total sleep time is 6 hrs, 17 min. Sleep latency is 28 minutes. REM latency is 101 minutes. The patient had 13 episodes of waking. Sleep architecture shows 12.0% deep sleep, 68.4% light sleep, and 19.6% stage REM. The patient spent 68% of total sleep time in the supine position. Sleep efficiency was 86%. Respiratory Analysis The overall AHI (pAHI 3%:) is 51.8. The central AHI is 10.8. The AHI was 47.5 in NREM and 68.3 in REM sleep. The AHI was 58.8 in Supine and 38.3 in Non-supine sleep. Percent of Deandre Manning respirations is 0.0. Oximetry Data The oxygen desaturation index (JOEY 4%:) is 37.3. The mean saturation is 93%, and the lowest saturation is 79%. Time spent with saturation < 88% is 8.8 minutes. Snoring Profile Snoring average intensity is 42 dB. The patient snored above 45 decibels for 40.9 minutes, 10.8% of sleep time. Cardiac Profile The average pulse rate is 86 beats per minutes. The lowest pulse rate is 74 bpm. The highest pulse rate reported is 107 bpm. Cardiac rhythm analysis in sleep did not detect atrial fibrillation. Assessment and Plan Assessment and Plan (1) Obstructive sleep apnea: Code(s): G47.33 - Obstructive sleep apnea (adult) (pediatric) Status: Acute Assessment and Plan: This home sleep test using WatchPat on 06/16/2024 shows severe obstructive sleep apnea, apnea-hypopnea index is 51 0.8 using 3% criteria, loud snoring and desaturation to 79% with 8.8 minutes, 2.3% the study spent below 88% saturation. He had a central apnea-hypopnea index of 10.8 which is above normal, normal is below 5 events per hour. Auto PAP is contraindicated with the degree of sleep disordered breathing and the elevated central apnea-hypopnea index of 10.8. Auto PAP can worsen central apneas. Central apneas can be seen in heart failure, stroke, opioid and alcohol dependence. The patient does not have a history of any of these. Consider ECHO to evaluate central apneas particularly if he continues to have these on the titration study. This patient needs to have a dedicated CPAP titration in the sleep lab with a sleep aid available, if needed, to initiate and maintain sleep during the titration. He should not nap on the day of the study. BMi is 46. Weight management is advised. Clinical data suggests that weight loss of 10% can reduce the severity of respiratory events and snoring and improve AHI by as much as 25%. Data The data obtained during this sleep study is adequate for interpretation. Certification This sleep study has been reviewed by a board certified sleep medicine physician.
[2024-06-20 18:17] VITALS: BMI 45.9
== END 2024-06-17 13:16 | disposition home or self-care (01) ==
LOC: ANHCSM 07:51
PROVIDERS: PCP Internal Medicine; Visit Provider Internal Medicine
DX: G47.33 Obstructive sleep apnea (adult) (pediatric) (principal)
CPT/HCPCS: 95800

== ENCOUNTER 2024-07-30 09:57 | Outpatient (CLI) | payer BC, SELFPAY ==
--- OUTSIDE RECORDS SUMMARY | 2024-07-30 10:20 | XMS_ITS | Data Portability ---
Author Organization [place] - [facility] [employer], Main Office Address [address] [place] [address] Assessment Encounter Date Assessment Date Assessment LastModified by Organization Details LastModified Time 07/08/2022 07/08/2022 Consider switching injectable for diabetes he is not losing any weight on current strategy blood work ordered targets for blood pressure ideal body weight LDL and A1c discussed screenings and immunizations discussed follow-up 4 months. [email or web address] Not available 07/14/2022 13:11:44 02/10/2023 02/10/2023 Plastic surgery doxycycline blood work weight loss again discussed his diagnosis on chronic medical problems have been discussed follow-up 6 months but he will call me back if his cyst does not get completely resolved [email or web address] Not available 02/10/2023 17:52:34 Plan of Treatment Reminders Order Date Submit Date Provider Last Modified By Organization Details Last Modified Time Details Appointments None recorded. Lab glycohemog lobin, total, blood 2022 023 [facility] (Lab), [address] [place], [address], 21:02:46 CMP, serum or plasma 2022 023 [facility] (Lab), [address] [place], [address], 18:19:08 lipid panel, serum 2022 023 [facility] (Lab), [address] [place], [address], 10/16/202 3 18:19:18 CBC w/ auto diff 2022 023 [facility] (Lab), [address] [place], [address], 3 18:04:16 CBC w/ auto diff 2022 023 [facility] (Lab), [address] [place], [address], 3 17:59:10 lipid panel, serum 2022 023 [facility] (Lab), [address] [place], [address], 3 19:26:47 CMP, serum or plasma 2022 023 [facility] (Lab), [address] [place], [address], 3 19:26:53 glycohemog lobin, total, blood 2022 023 [facility] (Lab), [address] [place], [address], 3 19:59:16 albumin/cr eatinine, mass ratio, urine 2022 023 [facility] (Lab), [address] [place], [address], 3 16:20:55 Referral plastic surgeon referral 2022 023 CORINNE Fitzgerald MD, [address] [facility] [address], [place], [address], 3 11:49:03 Procedures None recorded. Surgeries None [...] 2016, 39(Weldon ppl.1 ):s13 -s22 Not Available [facility] (Lab) [address] [place], [address], 02/22/2021 21:55:38 02/23/20 21 02/22/2021 LIPID PANEL cholesterol 170 mg/dL 140-19 9 NIH MAYRA NSUS RECOM MENDA TION FOR LEV STERO L: ADULT CHILD LOW RISK: <200 <170 BORDE RLINE : <200- 239 ----- HIGH RISK: >240 >200 Not Available [facility] (Lab) [address] [place], [address], 02/22/2021 18:10:38 02/23/20 21 02/22/2021 LIPID PANEL triglyceride s 200 mg/dL 0-150 high NIH MAYRA NSUS REPOR T RECOM MENDA TION FOR TRIGL YCERI BETTY: ADULT CHILD LOW RISK: <150 ----- BODER LINE: 150-1 99 ----- HIGH RISK: >200 ----- Not Available [facility] (Lab) [address] [place], [address], 02/22/2021 18:10:38 02/23/20 21 02/22/2021 LIPID PANEL HDL cholesterol 42 mg/dL 40- Not Available [facility] (Lab) [address] [place], [address], 02/22/2021 18:10:38 02/23/20 21 02/22/2021 LIPID PANEL [...] WILL NOT BE REPOR BALJEET. Not Available [facility] (Lab) [address] [place], [address], 02/22/2021 18:10:38 02/23/20 21 02/22/2021 COMPR EHENS DANIEL METAB OLIC PANEL glucose 149 mg/dL 70-99 high Not Available [facility] (Lab) [address] [place], [address], 02/22/2021 18:10:36 02/23/20 21 02/22/2021 COMPR EHENS DANIEL METAB OLIC PANEL sodium 139 mmol/ L 137-14 5 Not Available [facility] (Lab) [address] [place], [address], 02/22/2021 18:10:36 02/23/20 21 02/22/2021 COMPR EHENS DANIEL METAB OLIC PANEL potassium 4.1 mmol/ L 3.5-5. 1 Not Available [facility] (Lab) [address] [place], [address], 02/22/2021 18:10:36 02/23/20 21 02/22/2021 COMPR EHENS DANIEL METAB OLIC PANEL chloride 99 mmol/ L 98-107 Not Available [facility] (Lab) [address] [place], [address], 02/22/2021 18:10:36 02/23/20 21 02/22/2021 COMPR EHENS DANIEL METAB OLIC PANEL carbon dioxide 27 mmol/ L 22-30 Not Available [facility] (Lab) [address] [place], [address], 02/22/2021 18:10:36 02/23/20 21 02/22/2021 COMPR EHENS DANIEL METAB OLIC PANEL agap 17.1 mmol/ L 14-22 Not Available [facility] (Lab) [address] [place], [address], 02/22/2021 18:10:36 02/23/20 21 02/22/2021 COMPR EHENS DANIEL METAB OLIC PANEL BUN 14 mg/dL 8-19 Not Available [facility] (Lab) [address] [place], [address], 02/22/2021 18:10:36 02/23/20 21 02/22/2021 COMPR EHENS DANIEL METAB OLIC PANEL creatinine 0.77 mg/dL 0.66-1 .25 Not Available [facility] (Lab) [address] [place], [address], 02/22/2021 18:10:36 02/23/20 21 02/22/2021 COMPR EHENS DANIEL METAB OLIC PANEL GFR >60 Refer ence Range : [place] ge GFR Healt hy Adult : >60 [...] lator can be locat ed on the [facility] websi te: [email or web address] :[email or web address] ofess ional s/kdo qi/gf r_cal culat or Not Available [facility] (Lab) [address] [place], [address], 02/22/2021 18:10:36 02/23/20 21 02/22/2021 COMPR EHENS DANIEL METAB OLIC PANEL alkaline phosphatase 45 U/L 38-126 Not Available [facility] (Lab) [address] [place], [address], 02/22/2021 18:10:36 02/23/20 21 02/22/2021 COMPR EHENS DANIEL METAB OLIC PANEL alanine aminotransfe rase 59 U/L 0-50 high Not Available [facility] (Lab) [address] [place], [address], 02/22/2021 18:10:36 02/23/20 21 02/22/2021 COMPR EHENS DANIEL METAB OLIC PANEL aspartate aminotransfe rase 37 U/L 15-46 Not Available [facility] (Lab) [address] [place], [address], 02/22/2021 18:10:36 02/23/20 21 02/22/2021 COMPR EHENS DANIEL METAB OLIC PANEL bilirubin, total 1.20 mg/dL 0.20-1 .30 Not Available [facility] (Lab) [address] [place], [address], 02/22/2021 18:10:36 02/23/20 21 02/22/2021 COMPR EHENS DANIEL METAB OLIC PANEL calcium 9.8 mg/dL 8.4-10 .2 Not Available [facility] (Lab) [address] [place], [address], 02/22/2021 18:10:36 02/23/20 21 02/22/2021 COMPR EHENS DANIEL METAB OLIC PANEL total protein 7.6 g/dL 6.3-8. 2 Not Available [facility] (Lab) [address] [place], [address], 02/22/2021 18:10:36 02/23/20 21 02/22/2021 COMPR EHENS DANIEL METAB OLIC PANEL albumin 4.6 g/dL 3.4-5. 0 Not Available [facility] (Lab) [address] [place], [address], 02/22/2021 18:10:36 02/23/20 21 02/22/2021 COMPR EHENS DANIEL METAB OLIC PANEL globulin 3.0 g/dL 2.6-4. 2 Not Available [facility] (Lab) [address] [place], [address], 02/22/2021 18:10:36 02/23/20 21 02/22/2021 COMPR EHENS DANIEL METAB OLIC PANEL A/G ratio 1.5 ratio 1.0-2. 0 Not Available [facility] (Lab) [address] [place], [address], 02/22/2021 18:10:36 02/24/20 21 02/23/2021 MICRO ALBUM N RNDM W/CRE AT RATIO ur creat 99.12 mg/dL REFER ENCE RANGE NOT ESTAB LISHE D FOR RANDO M URINE CREAT ININE Not Available [facility] (Lab) [address] [place], [address], 02/23/2021 12:20:39 02/24/20 21 02/23/2021 MICRO ALBUM N RNDM W/CRE AT RATIO microalb 102.8 mg/L 0.0-16 .6 high Not Available [facility] (Lab) [address] [place], [address], 02/23/2021 12:20:39 02/24/20 21 02/23/2021 MICRO ALBUM [...] VOL. 26: S94-S 96, 2002 Not Available [facility] (Lab) [address] [place], [address], 02/23/2021 12:20:39 10/03/19 22 10/02/2021 HEMOG LOBIN A1C HA1C 6.3 % 4.0-6. 0 high Diabe michael Scree sandie Crite luz elena: <5.7% Consi stent with absen ce of diabe michael 5.7-6 .4% Consi stent with incre ased risk for diabe michael (pred iabet es) >OR=6 .5% Consi stent with diabe michael REFER ENCE: Diabe michael Care 2016, 39(Weldon ppl.1 ):s13 -s22 Not Available [facility] (Lab) [address] [place], [address], 10/02/2021 21:50:45 10/03/19 22 10/02/2021 LIPID PANEL cholesterol 152 mg/dL 140-19 9 NIH MAYRA NSUS RECOM MENDA TION FOR LEV STERO L: ADULT CHILD LOW RISK: <200 <170 BORDE RLINE : <200- 239 ----- HIGH RISK: >240 >200 Not Available [facility] (Lab) [address] [place], [address], 10/02/2021 19:21:49 10/03/19 22 10/02/2021 LIPID PANEL triglyceride s 141 mg/dL 0-150 NIH MAYRA NSUS REPOR T RECOM MENDA TION FOR TRIGL YCERI BETTY: ADULT CHILD LOW RISK: <150 ----- BODER LINE: 150-1 99 ----- HIGH RISK: >200 ----- Not Available [facility] (Lab) [address] [place], [address], 10/02/2021 19:21:49 10/03/19 22 10/02/2021 LIPID PANEL HDL cholesterol 42 mg/dL 40- Not Available [facility] (Lab) [address] [place], [address], 10/02/2021 19:21:49 10/03/19 22 10/02/2021 LIPID PANEL [...] WILL NOT BE REPOR BALJEET. Not Available [facility] (Lab) [address] [place], [address], 10/02/2021 19:21:49 10/03/19 22 10/02/2021 COMPR EHENS DANIEL METAB OLIC PANEL sodium 141 mmol/ L 137-14 5 Not Available [facility] (Lab) [address] [place], [address], 10/02/2021 19:21:44 10/03/19 22 10/02/2021 COMPR EHENS DANIEL METAB OLIC PANEL potassium 3.8 mmol/ L 3.5-5. 1 Not Available [facility] (Lab) [address] [place], [address], 10/02/2021 19:21:44 10/03/19 22 10/02/2021 COMPR EHENS DANIEL METAB OLIC PANEL chloride 102 mmol/ L 98-107 Not Available [facility] (Lab) [address] [place], [address], 10/02/2021 19:21:44 10/03/19 22 10/02/2021 COMPR EHENS DANIEL METAB OLIC PANEL carbon dioxide 29 mmol/ L 22-30 Not Available [facility] (Lab) [address] [place], [address], 10/02/2021 19:21:44 10/03/19 22 10/02/2021 COMPR EHENS DANIEL METAB OLIC PANEL anion gap 13.8 mmol/ L 14-22 low Not Available [facility] (Lab) [address] [place], [address], 10/02/2021 19:21:44 10/03/19 22 10/02/2021 COMPR EHENS DANIEL METAB OLIC PANEL glucose 134 mg/dL 70-99 high Not Available [facility] (Lab) [address] [place], [address], 10/02/2021 19:21:44 10/03/19 22 10/02/2021 COMPR EHENS DANIEL METAB OLIC PANEL BUN 12 mg/dL 8-19 Not Available [facility] (Lab) [address] [place], [address], 10/02/2021 19:21:44 10/03/19 22 10/02/2021 COMPR EHENS DANIEL METAB OLIC PANEL creatinine 0.98 mg/dL 0.66-1 .25 Not Available [facility] (Lab) [address] [place], [address], 10/02/2021 19:21:44 10/03/19 22 10/02/2021 COMPR EHENS DANIEL METAB OLIC PANEL bilirubin, total 0.70 mg/dL 0.20-1 .30 Not Available [facility] (Lab) [address] [place], [address], 10/02/2021 19:21:44 10/03/19 22 10/02/2021 COMPR EHENS DANIEL METAB OLIC PANEL GFR >60 Refer ence Range : [place] ge GFR Healt hy Adult : >60 [...] or ethni c subgr oups, such as Hismo nics. Outsi de the valid ated gemma [...] s/kdo qi/gf r_cal culat or Not Available [facility] (Lab) [address] [place], [address], 10/02/2021 19:21:44 10/03/19 22 10/02/2021 COMPR EHENS DANIEL METAB OLIC PANEL alkaline phosphatase 48 U/L 38-126 Not Available [facility] (Lab) [address] [place], [address], 10/02/2021 19:21:44 10/03/19 22 10/02/2021 COMPR EHENS DANIEL METAB OLIC PANEL alanine aminotransfe rase 50 U/L 0-50 Not Available [facility] (Lab) [address] [place], [address], 10/02/2021 19:21:44 10/03/19 22 10/02/2021 COMPR EHENS DANIEL METAB OLIC PANEL aspartate aminotransfe rase 32 U/L 15-46 Not Available [facility] (Lab) [address] [place], [address], 10/02/2021 19:21:44 10/03/19 22 10/02/2021 COMPR EHENS DANIEL METAB OLIC PANEL calcium 9.6 mg/dL 8.4-10 .2 Not Available [facility] (Lab) [address] [place], [address], 10/02/2021 19:21:44 10/03/19 22 10/02/2021 COMPR EHENS DANIEL METAB OLIC PANEL total protein 7.2 g/dL 6.3-8. 2 Not Available [facility] (Lab) [address] [place], [address], 10/02/2021 19:21:44 10/03/19 22 10/02/2021 COMPR EHENS DANIEL METAB OLIC PANEL albumin 4.6 g/dL 3.4-5. 0 Not Available [facility] (Lab) [address] [place], [address], 10/02/2021 19:21:44 10/03/19 22 10/02/2021 COMPR EHENS DANIEL METAB OLIC PANEL globulin 2.6 g/dL 2.6-4. 2 Not Available [facility] (Lab) [address] [place], [address], 10/02/2021 19:21:44 10/03/19 22 10/02/2021 COMPR EHENS DANIEL METAB OLIC PANEL A/G ratio 1.8 ratio 1.0-2. 0 Not Available [facility] (Lab) [address] [place], [address], 10/02/2021 19:21:44 10/03/19 22 10/02/2021 MICRO ALBUM N RNDM W/CRE AT RATIO ur creat 81.01 mg/dL REFER ENCE RANGE NOT ESTAB LISHE D FOR RANDO M URINE CREAT ININE Not Available [facility] (Lab) [address] [place], [address], 10/02/2021 19:19:37 10/03/19 22 10/02/2021 MICRO ALBUM N RNDM W/CRE AT RATIO microalbumin , urine 40.8 mg/L 0.0-16 .6 high Not Available [facility] (Lab) [address] [place], [address], 10/02/2021 19:19:37 10/03/19 22 10/02/2021 MICRO ALBUM [...] S94-S 96, JANUA RY 2002 Not Available [facility] (Lab) [address] [place], [address], 10/02/2021 19:19:37 07/09/19 23 07/08/2022 CBC/C OMPLE TE BLD COUNT W/DIF F white blood cells 8.0 x10'3 /uL 4.2-10 .8 Not Available [facility] (Lab) [address] [place], [address], 07/08/2022 17:59:10 07/09/19 23 07/08/2022 CBC/C OMPLE TE BLD COUNT W/DIF F red blood cells 6.10 x10'6 /uL 4.10-5 .80 high Not Available [facility] (Lab) [address] [place], [address], 07/08/2022 17:59:10 07/09/19 23 07/08/2022 CBC/C OMPLE TE BLD COUNT W/DIF F hemoglobin 16.4 g/dL 13.2-1 7.0 Not Available [facility] (Lab) [address] [place], [address], 07/08/2022 17:59:10 07/09/19 23 07/08/2022 CBC/C OMPLE TE BLD COUNT W/DIF F hematocrit 49.6 % 39.3-5 0.0 Not Available [facility] (Lab) [address] [place], [address], 07/08/2022 17:59:10 07/09/19 23 07/08/2022 CBC/C OMPLE TE BLD COUNT W/DIF F mean red cell volume 81.3 fL 80.0-9 7.0 Not Available [facility] (Lab) [address] [place], [address], 07/08/2022 17:59:10 0307/08/2022 CBC/C OMPLE TE BLD COUNT W/DIF F mean red cell hemoglobin 26.9 pg 27.0-3 3.0 low Not Available [facility] (Lab) [address] [place], [address], 07/08/2022 17:59:10 07/09/19 23 07/08/2022 CBC/C OMPLE TE BLD COUNT W/DIF F mean RBC HGB concentratio n 33.1 g/dL 31.0-3 6.0 Not Available [facility] (Lab) [address] [place], [address], 07/08/2022 17:59:10 07/09/19 23 07/08/2022 CBC/C OMPLE TE BLD COUNT W/DIF F red cell distribution width 13.2 % 11.8-1 5.5 Not Available [facility] (Lab) [address] [place], [address], 07/08/2022 17:59:10 07/09/19 23 07/08/2022 CBC/C OMPLE TE BLD COUNT W/DIF F platelets 295 x10'3 /uL 150-40 0 Not Available [facility] (Lab) [address] [place], [address], 07/08/2022 17:59:10 07/09/19 23 07/08/2022 CBC/C OMPLE TE BLD COUNT W/DIF F mean platelet volume 10.2 fL 9.0-12 .4 Not Available [facility] (Lab) [address] [place], [address], 07/08/2022 17:59:10 07/09/19 23 07/08/2022 CBC/C OMPLE TE BLD COUNT W/DIF F neutrophils 53.6 % 39.0-7 2.0 Not Available [facility] (Lab) [address] [place], [address], 07/08/2022 17:59:10 07/09/19 23 07/08/2022 CBC/C OMPLE TE BLD COUNT W/DIF F lymphocytes 33.0 % 16.0-4 7.0 Not Available [facility] (Lab) [address] [place], [address], 07/08/2022 17:59:10 07/09/19 23 07/08/2022 CBC/C OMPLE TE BLD COUNT W/DIF F monocytes 8.5 % 5.0-12 .0 Not Available [facility] (Lab) [address] [place], [address], 07/08/2022 17:59:10 07/09/19 23 07/08/2022 CBC/C OMPLE TE BLD COUNT W/DIF F eosinophils 3.9 % 1.0-7. 0 Not Available [facility] (Lab) [address] [place], [address], 07/08/2022 17:59:10 07/09/19 23 07/08/2022 CBC/C OMPLE TE BLD COUNT W/DIF F basophils 0.5 % 0.0-2. 0 Not Available [facility] (Lab) [address] [place], [address], 07/08/2022 17:59:10 07/09/19 23 07/08/2022 CBC/C OMPLE TE BLD COUNT W/DIF F immature granulocytes 0.5 % 0.00-0 .50 Not Available [facility] (Lab) [address] [place], [address], 07/08/2022 17:59:10 07/09/1907/08/2022 CBC/C OMPLE TE BLD COUNT W/DIF F neutrophils, absolute count 4.30 x10'3 /uL 1.5-8. 0 Not Available [facility] (Lab) [address] [place], [address], 07/08/2022 17:59:10 07/09/19 23 07/08/2022 CBC/C OMPLE TE BLD COUNT W/DIF F lymphocytes, absolute count 2.64 x10'3 /uL 1.07-3 .43 Not Available [facility] (Lab) [address] [place], [address], 07/08/2022 17:59:10 07/09/19 23 07/08/2022 CBC/C OMPLE TE BLD COUNT W/DIF F monocytes, absolute count 0.68 x10'3 /uL 0.29-0 .99 Not Available [facility] (Lab) [address] [place], [address], 07/08/2022 17:59:10 07/09/19 23 07/08/2022 CBC/C OMPLE TE BLD COUNT W/DIF F eosinophils, absolute count 0.31 x10'3 /uL 0.02-0 .53 Not Available [facility] (Lab) [address] [place], [address], 07/08/2022 17:59:10 07/09/19 23 07/08/2022 CBC/C OMPLE TE BLD COUNT W/DIF F basophils, absolute count 0.04 x10'3 /uL 0.01-0 .08 Not Available [facility] (Lab) [address] [place], [address], 07/08/2022 17:59:10 07/09/19 23 07/08/2022 CBC/C OMPLE TE BLD COUNT W/DIF F immature granulocytes ,absolute 0.04 x10'3 /uL 0.00-0 .05 Not Available [facility] (Lab) [address] [place], [address], 07/08/2022 17:59:10 07/09/19 23 07/08/2022 CBC/C OMPLE TE BLD COUNT W/DIF F nucleated red blood cells 0.0 % -0 Not Available [facility] (Lab) [address] [place], [address], 07/08/2022 17:59:10 07/09/1907/08/2022 CBC/C OMPLE TE BLD COUNT W/DIF F NRBC# 0.00 x10'3 /uL Not Available [facility] (Lab) [address] [place], [address], 07/08/2022 17:59:10 07/09/19 23 07/08/2022 MICRO ALBUM N RNDM W/CRE AT RATIO ur creat 98.99 mg/dL REFER ENCE RANGE NOT ESTAB LISHE D FOR RANDO M URINE CREAT ININE Not Available [facility] (Lab) [address] [place], [address], 07/08/2022 18:10:39 07/09/19 23 07/08/2022 MICRO ALBUM N RNDM W/CRE AT RATIO microalbumin , urine 112.6 mg/L 0.0-16 .6 high Not Available [facility] (Lab) [address] [place], [address], 07/08/2022 18:10:39 07/09/19 23 07/08/2022 MICRO ALBUM [...] CARE, VOL. 26: S94-S 2002 Not Available [facility] (Lab) [address] [place], [address], 07/08/2022 18:10:39 07/09/1907/08/2022 LIPID PANEL cholesterol 146 mg/dL 140-19 9 NIH MAYRA NSUS RECOM MENDA TION FOR LEV STERO L: ADULT CHILD LOW RISK: <200 <170 BORDE RLINE : <200- 239 ----- HIGH RISK: >240 >200 Not Available [facility] (Lab) [address] [place], [address], 07/08/2022 19:26:47 07/09/19 23 07/08/2022 LIPID PANEL triglyceride s 251 mg/dL 0-150 high NIH MAYRA NSUS REPOR T RECOM MENDA TION FOR TRIGL YCERI BETTY: ADULT CHILD LOW RISK: <150 ----- BODER LINE: 150-1 99 ----- HIGH RISK: >200 ----- Not Available [facility] (Lab) [address] [place], [address], 07/08/2022 19:26:47 07/09/19 23 07/08/2022 LIPID PANEL HDL cholesterol 37 mg/dL 40- low Not Available [facility] (Lab) [address] [place], [address], 07/08/2022 19:26:47 07/09/19 23 07/08/2022 LIPID PANEL [...] WILL NOT BE REPOR BALJEET. Not Available [facility] (Lab) [address] [place], [address], 07/08/2022 19:26:47 07/09/19 23 07/08/2022 COMPR EHENS DANIEL METAB OLIC PANEL sodium 139 mmol/ L 137-14 5 Not Available [facility] (Lab) [address] [place], [address], 07/08/2022 19:26:53 07/09/19 23 07/08/2022 COMPR EHENS DANIEL METAB OLIC PANEL potassium 3.7 mmol/ L 3.5-5. 1 Not Available [facility] (Lab) [address] [place], [address], 07/08/2022 19:26:53 07/09/19 23 07/08/2022 COMPR EHENS DANIEL METAB OLIC PANEL chloride 101 mmol/ L 98-107 Not Available [facility] (Lab) [address] [place], [address], 07/08/2022 19:26:53 07/09/19 23 07/08/2022 COMPR EHENS DANIEL METAB OLIC PANEL carbon dioxide 27 mmol/ L 22-30 Not Available [facility] (Lab) [address] [place], [address], 07/08/2022 19:26:53 07/09/19 23 07/08/2022 COMPR EHENS DANIEL METAB OLIC PANEL anion gap 14.7 mmol/ L 14-22 Not Available [facility] (Lab) [address] [place], [address], 07/08/2022 19:26:53 07/09/19 23 07/08/2022 COMPR EHENS DANIEL METAB OLIC PANEL glucose 166 mg/dL 70-99 high Not Available [facility] (Lab) [address] [place], [address], 07/08/2022 19:26:53 07/09/19 23 07/08/2022 COMPR EHENS DANIEL METAB OLIC PANEL BUN 14 mg/dL 8-19 Not Available [facility] (Lab) [address] [place], [address], 07/08/2022 19:26:53 07/09/1907/08/2022 COMPR EHENS DANIEL METAB OLIC PANEL creatinine 0.82 mg/dL 0.66-1 .25 Not Available [facility] (Lab) [address] [place], [address], 07/08/2022 19:26:53 07/09/19 23 07/08/2022 COMPR EHENS DANIEL METAB OLIC PANEL GFR >60 Refer ence Range : [place] ge GFR Healt hy Adult : >60 [...] or ethni c subgr oups, such as Hismo nics. Outsi de the valid ated gemma [...] s/kdo qi/gf r_cal culat or Not Available [facility] (Lab) [address] [place], [address], 07/08/2022 19:26:53 07/09/1907/08/2022 COMPR EHENS DANIEL METAB OLIC PANEL alkaline phosphatase 60 U/L 38-126 Not Available [facility] (Lab) [address] [place], [address], 07/08/2022 19:26:53 07/09/19 23 07/08/2022 COMPR EHENS DANIEL METAB OLIC PANEL alanine aminotransfe rase 83 U/L 0-50 high Not Available [facility] (Lab) [address] [facility] [place], [address], 07/08/2022 19:26:53 07/09/19 23 07/08/2022 COMPR EHENS DANIEL METAB OLIC PANEL aspartate aminotransfe rase 64 U/L 15-46 high Not Available [facility] (Lab) [address] [place], [address], 07/08/2022 19:26:53 07/09/19 23 07/08/2022 COMPR EHENS DANIEL METAB OLIC PANEL bilirubin, total 0.80 mg/dL 0.20-1 .30 Not Available [facility] (Lab) [address] [place], [address], 07/08/2022 19:26:53 07/09/19 23 07/08/2022 COMPR EHENS DANIEL METAB OLIC PANEL calcium 9.5 mg/dL 8.4-10 .2 Not Available [facility] (Lab) [address] [place], [address], 07/08/2022 19:26:53 07/09/19 23 07/08/2022 COMPR EHENS DANIEL METAB OLIC PANEL total protein 8.0 g/dL 6.3-8. 2 Not Available [facility] (Lab) [address] [facility] [place], [address], 07/08/2022 19:26:53 07/09/19 23 07/08/2022 COMPR EHENS DANIEL METAB OLIC PANEL albumin 4.8 g/dL 3.4-5. 0 Not Available [facility] (Lab) [address] [place], [address], 07/08/2022 19:26:53 07/09/19 23 07/08/2022 COMPR EHENS DANIEL METAB OLIC PANEL globulin 3.2 g/dL 2.6-4. 2 Not Available [facility] (Lab) [address] [place], [address], 07/08/2022 19:26:53 07/09/19 23 07/08/2022 COMPR EHENS DANIEL METAB OLIC PANEL A/G ratio 1.5 ratio 1.0-2. 0 Not Available [facility] (Lab) [address] [place], [address], 07/08/2022 19:26:53 07/09/19 23 07/08/2022 HEMOG LOBIN A1C HA1C 7.3 % 4.0-6. 0 high Diabe michael Scree sandie Crite luz elena: <5.7% Consi stent with absen ce of diabe michael 5.7-6 .4% Consi stent with incre ased risk for diabe michael (pred iabet es) >OR=6 .5% Consi stent with diabe michael REFER ENCE: Diabe michael Care 2016, 39([facility] ppl.1 ):s13 -s22 Not Available [facility] (Lab) [address] [place], [address], 07/08/2022 19:59:16 02/11/20 23 02/10/2023 CBC/C OMPLE TE BLD COUNT W/DIF F white blood cells 7.1 x10'3 /uL 4.2-10 .8 Not Available [facility] (Lab) [address] [place], [address], 02/10/2023 18:04:16 02/11/20 23 02/10/2023 CBC/C OMPLE TE BLD COUNT W/DIF F red blood cells 5.76 x10'6 /uL 4.10-5 .80 Not Available [facility] (Lab) [address] [place], [address], 02/10/2023 18:04:16 02/11/2002/10/2023 CBC/C OMPLE TE BLD COUNT W/DIF F hemoglobin 16.0 g/dL 13.2-1 7.0 Not Available [facility] (Lab) [address] [place], [address], 02/10/2023 18:04:16 02/11/2002/10/2023 CBC/C OMPLE TE BLD COUNT W/DIF F hematocrit 47.6 % 39.3-5 0.0 Not Available [facility] (Lab) [address] [place], [address], 02/10/2023 18:04:16 02/11/2002/10/2023 CBC/C OMPLE TE BLD COUNT W/DIF F mean red cell volume 82.6 fL 80.0-9 7.0 Not Available [facility] (Lab) [address] [place], [address], 02/10/2023 18:04:16 02/11/2002/10/2023 CBC/C OMPLE TE BLD COUNT W/DIF F mean red cell hemoglobin 27.8 pg 27.0-3 3.0 Not Available [facility] (Lab) [address] [place], [address], 02/10/2023 18:04:16 02/11/2002/10/2023 CBC/C OMPLE TE BLD COUNT W/DIF F mean RBC HGB concentratio n 33.6 g/dL 31.0-3 6.0 Not Available [facility] (Lab) [address] [place], [address], 02/10/2023 18:04:16 02/11/2002/10/2023 CBC/C OMPLE TE BLD COUNT W/DIF F red cell distribution width 13.2 % 11.8-1 5.5 Not Available [facility] (Lab) [address] [place], [address], 02/10/2023 18:04:16 02/11/2002/10/2023 CBC/C OMPLE TE BLD COUNT W/DIF F platelets 269 x10'3 /uL 150-40 0 Not Available [facility] (Lab) [address] [place], [address], 02/10/2023 18:04:16 02/11/2002/10/2023 CBC/C OMPLE TE BLD COUNT W/DIF F mean platelet volume 10.0 fL 9.0-12 .4 Not Available [facility] (Lab) [address] [place], [address], 02/10/2023 18:04:16 02/11/2002/10/2023 CBC/C OMPLE TE BLD COUNT W/DIF F neutrophils 57.4 % 39.0-7 2.0 Not Available [facility] (Lab) [address] [place], [address], 02/10/2023 18:04:16 02/11/2002/10/2023 CBC/C OMPLE TE BLD COUNT W/DIF F lymphocytes 28.7 % 16.0-4 7.0 Not Available [facility] (Lab) [address] [place], [address], 02/10/2023 18:04:16 02/11/2002/10/2023 CBC/C OMPLE TE BLD COUNT W/DIF F monocytes 7.9 % 5.0-12 .0 Not Available [facility] (Lab) [address] [place], [address], 02/10/2023 18:04:16 02/11/2002/10/2023 CBC/C OMPLE TE BLD COUNT W/DIF F eosinophils 4.6 % 1.0-7. 0 Not Available [facility] (Lab) [address] [place], [address], 02/10/2023 18:04:16 02/11/2002/10/2023 CBC/C OMPLE TE BLD COUNT W/DIF F basophils 1.0 % 0.0-2. 0 Not Available [facility] (Lab) [address] [place], [address], 02/10/2023 18:04:16 02/11/2002/10/2023 CBC/C OMPLE TE BLD COUNT W/DIF F immature granulocytes 0.4 % 0.00-0 .50 Not Available [facility] (Lab) [address] [place], [address], 02/10/2023 18:04:16 02/11/2002/10/2023 CBC/C OMPLE TE BLD COUNT W/DIF F neutrophils, absolute count 4.08 x10'3 /uL 1.5-8. 0 Not Available [facility] (Lab) [address] [place], [address], 02/10/2023 18:04:16 02/11/2002/10/2023 CBC/C OMPLE TE BLD COUNT W/DIF F lymphocytes, absolute count 2.04 x10'3 /uL 1.07-3 .43 Not Available [facility] (Lab) [address] [place], [address], 02/10/2023 18:04:16 02/11/2002/10/2023 CBC/C OMPLE TE BLD COUNT W/DIF F monocytes, absolute count 0.56 x10'3 /uL 0.29-0 .99 Not Available [facility] (Lab) [address] [place], [address], 02/10/2023 18:04:16 02/11/2002/10/2023 CBC/C OMPLE TE BLD COUNT W/DIF F eosinophils, absolute count 0.33 x10'3 /uL 0.02-0 .53 Not Available [facility] (Lab) [address] [place], [address], 02/10/2023 18:04:16 02/11/2002/10/2023 CBC/C OMPLE TE BLD COUNT W/DIF F basophils, absolute count 0.07 x10'3 /uL 0.01-0 .08 Not Available [facility] (Lab) [address] [place], [address], 02/10/2023 18:04:16 02/11/2002/10/2023 CBC/C OMPLE TE BLD COUNT W/DIF F immature granulocytes ,absolute 0.03 x10'3 /uL 0.00-0 .05 Not Available [facility] (Lab) [address] [place], [address], 02/10/2023 18:04:16 02/11/2002/10/2023 CBC/C OMPLE TE BLD COUNT W/DIF F nucleated red blood cells 0.0 % -0 Not Available [facility] (Lab) [address] [place], [address], 02/10/2023 18:04:16 02/11/2002/10/2023 CBC/C OMPLE TE BLD COUNT W/DIF F NRBC# 0.00 x10'3 /uL Not Available [facility] (Lab) [address] [place], [address], 02/10/2023 18:04:16 02/11/2002/10/2023 COMPR EHENS DANIEL METAB OLIC PANEL sodium 141 mmol/ L 137-14 5 Not Available [facility] (Lab) [address] [place], [address], 02/10/2023 18:19:08 02/11/2002/10/2023 COMPR EHENS DANIEL METAB OLIC PANEL potassium 3.8 mmol/ L 3.5-5. 1 Not Available [facility] (Lab) [address] [place], [address], 02/10/2023 18:19:08 02/11/2002/10/2023 COMPR EHENS DANIEL METAB OLIC PANEL chloride 98 mmol/ L 98-107 Not Available [facility] (Lab) [address] [place], [address], 02/10/2023 18:19:08 02/11/2002/10/2023 COMPR EHENS DANIEL METAB OLIC PANEL carbon dioxide 31 mmol/ L 22-30 high Not Available [facility] (Lab) [address] [place], [address], 02/10/2023 18:19:08 02/11/2002/10/2023 COMPR EHENS DANIEL METAB OLIC PANEL anion gap 15.8 mmol/ L 14-22 Not Available [facility] (Lab) [address] [place], [address], 02/10/2023 18:19:08 02/11/2002/10/2023 COMPR EHENS DANIEL METAB OLIC PANEL glucose 232 mg/dL 70-99 high Not Available [facility] (Lab) [address] [place], [address], 02/10/2023 18:19:08 02/11/2002/10/2023 COMPR EHENS DANIEL METAB OLIC PANEL BUN 12 mg/dL 8-19 Not Available [facility] (Lab) [address] [place], [address], 02/10/2023 18:19:08 02/11/20 23 02/10/2023 COMPR EHENS DANIEL METAB OLIC PANEL creatinine 0.80 mg/dL 0.66-1 .25 Not Available [facility] (Lab) [address] [place], [address], 02/10/2023 18:19:08 02/11/2002/10/2023 COMPR EHENS DANIEL METAB OLIC PANEL GFR >60 Refer ence Range : [place] ge GFR Healt hy Adult : >60 [...] calcu lator is avail able on the [facility] websi te: [email or web address] :[email or web address] [email or web address] qi/gf r_cal culat or Not Available [facility] (Lab) [address] [place], [address], 02/10/2023 18:19:08 02/11/2002/10/2023 COMPR EHENS DANIEL METAB OLIC PANEL alkaline phosphatase 53 U/L 38-126 Not Available [facility] (Lab) [address] [place], [address], 02/10/2023 18:19:08 1002/10/2023 COMPR EHENS DANIEL METAB OLIC PANEL alanine aminotransfe rase 67 U/L 0-50 high Not Available [facility] (Lab) [address] [place], [address], 02/10/2023 18:19:08 02/11/2002/10/2023 COMPR EHENS DANIEL METAB OLIC PANEL aspartate aminotransfe rase 47 U/L 15-46 high Not Available [facility] (Lab) [address] [place], [address], 02/10/2023 18:19:08 02/11/2002/10/2023 COMPR EHENS DANIEL METAB OLIC PANEL bilirubin, total 0.90 mg/dL 0.20-1 .30 Not Available [facility] (Lab) [address] [place], [address], 02/10/2023 18:19:08 02/11/2002/10/2023 COMPR EHENS DANIEL METAB OLIC PANEL calcium 10.0 mg/dL 8.4-10 .2 Not Available [facility] (Lab) [address] [place], [address], 02/10/2023 18:19:08 02/11/2002/10/2023 COMPR EHENS DANIEL METAB OLIC PANEL total protein 7.5 g/dL 6.3-8. 2 Not Available [facility] (Lab) [address] [place], [address], 02/10/2023 18:19:08 02/11/2002/10/2023 COMPR EHENS DANIEL METAB OLIC PANEL albumin 4.7 g/dL 3.4-5. 0 Not Available [facility] (Lab) [address] [place], [address], 02/10/2023 18:19:08 02/11/2002/10/2023 COMPR EHENS DANIEL METAB OLIC PANEL globulin 2.8 g/dL 2.6-4. 2 Not Available [facility] (Lab) [address] [place], [address], 02/10/2023 18:19:08 02/11/20 23 02/10/2023 COMPR EHENS DANIEL METAB OLIC PANEL A/G ratio 1.7 ratio 1.0-2. 0 Not Available [facility] (Lab) [address] [place], [address], 02/10/2023 18:19:08 02/11/2002/10/2023 LIPID PANEL cholesterol 161 mg/dL 140-19 9 NIH MAYRA NSUS RECOM MENDA TION FOR LEV STERO L: ADULT CHILD LOW RISK: <200 <170 BORDE RLINE : <200- 239 ----- HIGH RISK: >240 >200 Not Available [facility] (Lab) [address] [place], [address], 02/10/2023 18:19:18 02/11/2002/10/2023 LIPID PANEL triglyceride s 231 mg/dL 0-150 high NIH MAYRA NSUS REPOR T RECOM MENDA TION FOR TRIGL YCERI BETTY: ADULT CHILD LOW RISK: <150 ----- BODER LINE: 150-1 99 ----- HIGH RISK: >200 ----- Not Available [facility] (Lab) [address] [place], [address], 02/10/2023 18:19:18 02/11/2002/10/2023 LIPID PANEL HDL cholesterol 40 mg/dL 40- Not Available [facility] (Lab) [address] [place], [address], 02/10/2023 18:19:18 02/11/2002/10/2023 LIPID PANEL LDL cholesterol, [...] WILL NOT BE REPOR BALJEET. Not Available [facility] (Lab) [address] [place], [address], 02/10/2023 18:19:18 02/11/20 23 02/10/2023 HEMOG LOBIN A1C HA1C 7.6 % 4.0-6. 0 high Diabe michael Scree sandie Crite luz elena: <5.7% Consi stent with absen ce of diabe michael 5.7-6 .4% Consi stent with incre ased risk for diabe michael (pred iabet es) >OR=6 .5% Consi stent with diabe michael REFER ENCE: Diabe michael Care 2016, 39([place]el[place] ppl.1 ):s13 -s22 Not Available [facility] (Lab) [address] [place], [address], 02/10/2023 21:02:46 Result Notes None recorded. Problems Name Problem SNOMED Code Status Onset Date Resolution Date Notes Provider Name and Address Organization Details Recorded Time Sebaceous cyst of skin 902299093 Active 2022 Not Available [facility] 3 00:14:39 Cellulitis 745233336 Active Not Available [facility] 3 00:14:38 Acute sinusitis 80212861 Active 2022 Not Available [facility] 3 00:14:39 Blood glucose outside reference range 706667780 Active Not Available [facility] 3 00:14:39 Overweight 796772354 Active Not Available [facility] 3 00:14:39 Type 2 diabetes mellitus without complication 234476012 Active 2021 Not Available [facility] 3 00:14:39 Depressive disorder 97644520 Active Not Available [facility] 3 00:14:39 Sinusitis 18889470 Active Not Available [facility] 3 00:14:39 Dyslipidemia 779822832 Active 2016 Not Available [facility] 00:14:39 Obesity 369338125 Active 2018 Not Available [facility] 3 00:14:39 Upper respiratory infection 77395185 Active 2021 Not Available [facility] 3 00:14:39 Essential hypertension 06650530 Active Not Available [facility] 3 00:14:39 Strain of thoracic region 20211480 Active Not Available [facility] 3 00:14:39 Liver enzymes level above reference range 616869291 Active Not Available [facility] 3 00:14:39 Diabetes mellitus 07576358 Active Not Available [facility] 3 00:14:39 Gout 63076523 Active Not Available [facility] 3 00:14:39 Problem Notes None recorded. Procedures Surgical History Date Name Laterality Status Provider Name and Address Organization Details Recorded Time 0 excision of lipoma of shoulder completed Not Available [facility] 06/26/2022 03:20:17 5 Sinus Surgery completed Not Available [facility] 2022 03:20:17 Imaging Results None recorded. Procedure [...] Astepro 205.5 mcg (0.15 %) nasal spray [place] 1 spray twice a day by intranas [...] Date Recorded Body mass index (BMI) Body height Heart rate Body temperature Body weight Systolic blood pressure Diastolic blood pressure Provider Name and Address Organization Details Last Updated DateTime 1 44.3 kg/m2 187.96 cm 84 /min 97.2 [degF] 049853. 37 g 140 mm[Hg] 92 mm[Hg] Not Available [facility] 3 03:24:17 Date Recorded Body mass index (BMI) Body height Heart rate Body temperature Body weight Systolic blood pressure Diastolic blood pressure Provider Name and Address Organization Details Last Updated DateTime 2 45.3 kg/m2 187.96 cm 90 /min 97.2 [degF] 613003. 11 g 140 mm[Hg] 80 mm[Hg] Not Available [facility] 3 03:24:17 Date Recorded Body mass index (BMI) Body height Heart rate Body temperature Body weight Systolic blood pressure Diastolic blood pressure Provider Name and Address Organization Details Last Updated DateTime 2 46.5 kg/m2 187.96 cm 79 /min 97.9 [degF] 581764. 44 g 136 mm[Hg] 80 mm[Hg] Not Available [facility] 3 03:24:17 Date Recorded Body height Body mass index (BMI) Body weight Body temperature Heart rate Systolic blood pressure Diastolic blood pressure Provider Name and Address Organization Details Last Updated DateTime 3 187.96 cm 46.9 kg/m2 438281. 22 g 97.8 [degF] 79 /min 148 mm[Hg] 90 mm[Hg] PASCUAL Montes [employer] 3 16:51:28 Date Recorded Body height Body mass index (BMI) Body weight Body temperature Heart rate Systolic blood pressure Diastolic blood pressure Provider Name and Address Organization Details Last Updated DateTime 3 187.96 cm 46.5 kg/m2 577186. 44 g 98.5 [degF] 86 /min 140 mm[Hg] 90 mm[Hg] PASCUAL Montes [place] [employer] 3 16:31:57 Social History Question Answer Notes LastModified by Organization Details LastModified Time Tobacco Smoking Status Never Smoker Not Available [facility] 06/26/2022 03:08:57 Do You Have An Advance Directive? No MIGRATION.0301 [id number] Information not available 06/26/2022 What Is Your Level Of Alcohol Consumption? Occasional MIGRATION.0301 [id number] Information not available 06/26/2022 Do You Wear A Helmet When Biking? Yes MIGRATION.0301 309258 Information not available 06/26/2022 What Is Your Level Of Caffeine Consumption? Occasional MIGRATION.0301 [id number] Information not available 06/26/2022 How Much Tobacco Do You Chew? None MIGRATION.0301 [id number] Information not available 06/26/2022 In The 14 Days Before Symptom Onset, Have You Had Close Contact With A Laboratory-confi rmed COVID-19 While That Case Was Ill? No MIGRATION.0301 [id number] Information not available 06/26/2022 In The 14 Days Before Symptom Onset, Have You Had Close Contact With A Person Who Is Under Investigation For COVID-19 While That Person Was Ill? No MIGRATION.0301 [id number] Information not available 06/26/2022 What Type Of Diet Are You Following? REGULAR MIGRATION.0301 134858 Information not available 06/26/2022 Which Illicit Or Recreational Drugs Have You Used? None MIGRATION.0301 [id number] Information not available 06/26/2022 Do You Or Have You Ever Used E-cigarettes Or Vape? Never Used Electronic Cigarettes MIGRATION.0301 744354 Information not available 06/26/2022 What Is The Highest Grade Or Level Of School You Have Completed Or The Highest Degree You Have Received? 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 No MIGRATION.0301 144457 Information not available 06/26/2022 What Is The Fluoride Status Of Your Home? Unknown MIGRATION.0301 285642 Information not available 06/26/2022 Do You Use Insect Repellent Routinely? No MIGRATION.0301 892061 Information not available 06/26/2022 Where Do You Live? [facility] MIGRATION.0301 380889 Information not available 06/26/2022 Do You Have A Medical Power Of Student Support Advisor? No MIGRATION.0301 307626 Information not available 06/26/2022 What Was The Date Of Your Most Recent Tobacco Screening? 02/10/2023 [email or web address] Information not available 02/10/2023 Have You Ever Been Counseled For Unhealthy Alcohol Use? No MIGRATION.0301 740509 Information not available 06/26/2022 Do You Have Any Pets? No MIGRATION.0301 424688 Information not available 06/26/2022 What Is Your Relationship Status? Single MIGRATION.0301 203542 Information not available 06/26/2022 Do You Use Your Seat Belt Or Car Seat Routinely? Yes MIGRATION.0301 177188 Information not available 06/26/2022 Do You Have Smoke And Carbon Monoxide Detectors In Your Home? Yes MIGRATION.0301 545936 Information not available 06/26/2022 Are You Passively Exposed To Smoke? No MIGRATION.0301 878407 Information not available 06/26/2022 Do You Or Have You Ever Used Smokeless Tobacco? Never Used Smokeless Tobacco MIGRATION.0301 701694 Information not available 06/26/2022 Are There Any Smokers In Your House? No MIGRATION.0301 041784 Information not available 06/26/2022 How Much Tobacco Do You Smoke? No MIGRATION.0301 141694 Information not available 06/26/2022 What Types Of Sporting Activities Do You Participate In? None MIGRATION.0301 570299 Information not available 06/26/2022 Do You Feel Stressed (tense, Restless, Nervous, Or Anxious, Or Unable To Sleep At Night)? [id number] MIGRATION.030 141976 Information not available 06/26/2022 Do You Use Any Illicit Or Recreational Drugs? No MIGRATION.030 908181 Information not available 06/26/2022 Do You Use Sunscreen Routinely? No MIGRATION.030 211905 Information not available 06/26/2022 Has Tobacco Cessation Counseling Been Provided? No Not Needed-ne vilma Smoked MIGRATION.030059765 Information not available 06/26/2022 How Many Years Have You Smoked Tobacco? 0 MIGRATION.030 280537 Information not available 06/26/2022 Have You Recently Traveled Abroad? No MIGRATION.030 312399 Information not available 06/26/2022 Do You Have Any Dietary Restrictions? No MIGRATION.030 905668 Information not available 06/26/2022 Do You Or Have You Ever Used Any Other Forms Of Tobacco Or Nicotine? No MIGRATION.030 199473 Information not available 06/26/2022 Sex: Male Functional Status Question Answer Note LastModified by Organizat ion Details LastModified Time What is your exercise level? Occasional MIGRATION.[id number] 26 Information not available 06/26/2022 Mental Status None recorded. Family History Relationship Description Onset Age of this Age Resolved Age Notes LastModified by Organization Details LastModified Time Paternal Grandmother Diabetes mellitus MIGRATION.962 [id number] Not available 06/26/2022 03:20:20 Paternal Uncle Diabetes mellitus MIGRATION.520 [id number] Not available 06/26/2022 03:20:20 Medical History Condition Response NERVE DISEASE N BLINDNESS N RHEUMATIC FEVER N KIDNEY STONES N BLADDER PROBLEMS N MRSA N OTHER # 1 N POLIO N LUNG DISEASE/DISORDER N RADIATION / CHEMOTHERAPY N COPD N Other # 2 N BLOOD DISEASES N SURGERY N EAR OR HEARING PROBLEMS N MUMPS N BOWEL PROBLEMS N DEPRESSION (INCLUDING POST ) N STROKE/TIA N ULCERS N BENIGN PROSTATIC HYPERPLASIA N MEASLES N MYOCARDIAL INFARCTION N OBESITY Y GERD/NAUSEA N ANEURYSM N URINARY/BLADDER/KIDNEY PROBLEMS N CORONARY ARTERY DISEASE (CAD) N ADDICTION CONCERNS N ENDOMETRIOSIS N Impotence N USE OF BLOOD THINNERS N SKIN [...] APNEA N CHICKENPOX N INFECTIOUS DISEASE N HEART ARRHYTHMIA N PROSTATE N INSOMNIA N HIGH CHOLESTEROL / HYPERLIPIDEMIA N HYPERTHYROIDISM N EYE PROBLEMS N NEUROLOGICAL PROBLEMS N EDEMA N CHRONIC PAIN SYNDROME N HYPOTHYROIDISM N CAROTID BLOCKAGE N CONSTIPATION N BACK / NECK PROBLEMS N HAVE YOU BEEN HOSPITALIZED OR SEEN IN [facility] IN THE PAST YEAR ? N ATHEROSCLEROSIS N BREAST PROBLEMS N DIALYSIS N ECZEMA N OSTEOPOROSIS N ARTHRITIS N APPENDICITIS N DIABETES, TYPE Y BAD TEETH N ENT N HEARTBURN / REFLUX N AUTISM SPECTRUM DISORDER (ASD) N HEPATITIS / LIVER DISEASE N GOUT Y SLEEP DISORDER N ALZHEIMER'S DISEASE N Brain Problems N HERPES N DEMENTIA N HEADACHES/MIGRAINES N SEIZURES/EPILEPSY N VASCULAR DISEASE N PACEMAKER N Blood Disorder N DIZZINESS N HEART DISEASE/HEART PROBLEMS N KIDNEY DISEASE N MULTIPLE SCLEROSIS N CARDIAC ARRHYTHMIA N CANCER: SPECIFY N ATRIAL FIBRILLATION N Gall Stones N PULMONARY EMBOLISM N AUTOIMMUNE DISEASE N Immunizations Vaccine Type Date Status Note Provider Nam e and Address Organization Details Recorded Time COVID-19, mRNA, LNP-S, PF, 30 mcg/0.3 mL dose 1 completed Not Available [facility] 02/12/2023 00:14:39 COVID-19, mRNA, LNP-S, PF, 30 mcg/0.3 mL dose 1 completed Not Available [facility] 02/12/2023 00:14:39 Influenza, split virus, quadrivalent, preservative 0 completed Not Available [facility] 02/12/2023 00:14:39 Influenza, split virus, quadrivalent, PF 2 completed Not Available [facility] 02/12/2023 00:14:39 Influenza, split virus, quadrivalent, PF 9 completed Not Available [facility] 02/12/2023 00:14:39 Past Encounters Encounter ID Performer Location Encounter Start Date Encounter Closed Date Diagnosis/Indication Diagnosis SNOMED-CT Code Diagnosis ICD10 Code Diagnosis Note [id number] S_G Internal Med [facility] [address] [facility] y , [place] [address] 08/24/2020 00:00:00 08/24/2020 14:17:25 [id number] A[facility] Internal Med [facility] [address] [place] [address] [place] [address] 08/29/2020 00:00:00 08/29/2020 20:37:29 [id number] [facility] Internal Med [facility] [address] [place] [address] [place] [address] 09/05/2020 00:00:00 09/05/2020 17:41:27 [id number] AHS_GMG Internal Med [facility] [address] [place] [address] [place] [address] 10/02/2020 00:00:00 10/02/2020 23:26:48 [id number] AHS_[facility]G Internal Med [facility] [address] [place], [place] [address]., [address] [address] 02/22/2021 00:00:00 02/25/2021 21:05:37 [id number] A[facility]G Internal Med [facility] [address] [place], [place] [address]., [place] [address] 1 10/02/2021 00:00:00 10/02/2021 18:51:25 [id number] A[facility] Internal Med [facility] [address] [place], [place] [address]., [address] [address] 02/26/2022 00:00:00 02/26/2022 22:43:55 [id number] Tim French MD [facility] Internal Med [facility] [address] [place] [address]., [address] [address] 07/08/2022 16:08:57 07/08/2022 17:15:21 Diabetes mellitus 33102233 E11.9 Essential hypertension 25977885 I10 Dyslipidemia 910153350 E 78.5 Obesity 208132693 E66.9 Gout 13360181 M10.9 [id number] Tim French MD [facility] Internal Med [facility] [address] [place] [address] [place] [address] 02/10/2023 16:16:30 02/10/2023 17:11:55 Dyslipidemia 494363916 E78.5 Essential hypertension 04185263 I10 Sebaceous cyst of skin 449407841 L72.3 Type 2 kamran betes mellitus without complication 949968184 E11.9 Obesity 830598542 E66.9 Health Concerns Section Related Observation LastModified by Organization Detai ls LastModified Time None Recorded Concern Status LastModified by Organization Details LastModified Time None Recorded Advance Directives Directive N: Payers Encounter Date Sequence Insurance Name Policy Number Policy Albright Covered Member ID Albright Member ID Guarantor Name 07/08/2022 1 [place] [id number] Mynor Gloria [id number] Mynor Gloria 02/10/2023 1 [place] [id number] Mynor Gloria [id number] Mynor Gloria Notes Date Note Type Note Provider Name and Address Organization Details Recorded Time 07/08/2022 text/html Gout no flare-upsDyslipidemia taking medication could do better with exerciseObesity not making good strides thereHypertension no headache no dizzinessDiabetes up and down but no polyphagia polydipsia no hypoglycemic spells Tim French MD [address] [employer], [place], [address], [employer] 07/14/2022 13:12:01 02/10/2023 text/html Gout no flare-upsDyslipidemia taking medication could do better with exerciseObesity not making good strides thereHypertension no headache no dizzinessDiabetes up and down but no polyphagia polydipsia no hypoglycemic spellsInfected area on the top of his head for 1-2 weeks Tim French MD [address] [employer], [place], [address], [employer] 02/10/2023 17:53:09
--- OUTSIDE RECORDS SUMMARY | 2024-07-30 10:20 | XMS_ITS | Data Portability ---
Author Organization [facility] ALEJANDRAAnjali Address [address] [facility] [place] [address] Care Team Providers Care Dining Room Supervisor Name Role Phone DERRELL FRENCH Primary Care Provider [facility] Dice Table Operator [phone] Assessment Encounter Date Assessment Date Assessment LastModified [...] in 4 months. Records from old clinic. [email or web address] Not available 07/13/2023 16:27:36 01/22/2024 01/22/2024 Blood work ordered diagnosis and assessment and plan discussed immunizations recommended that he get flu and COVID even consider RSV given his obesity consider bariatric surgery referral GLP 1 agents of which he is reluctant at this time states he is up-to-date on diabetic eye exam needs colon cancer screening. Cologuard ordered return to clinic 4 months. [email or web address] Not available 01/23/2024 11:46:05 05/27/2024 05/27/[address] report foot exam refer for podiatry blood work ordered sleep study ordered weight controlled discussed in detail follow up 4 months [email or web address] Not available 05/29/2024 13:35:48 Plan of Treatment Reminders Order Date Submit Date Provider Last Modified By Organization Details Last Modified Time Details Appointments ANY 15 2024 03:15P Niles French MD Not available Not available Not available Lab HbA1c (hemoglob in A1c), blood 2024 025 CORINNE Les, [address], [place], [address], 07/01/2024 11:08:11 albumin/c reatinine , mass ratio, urine 2024 025 CORINNE Saldana, [address], [place], [address], 07/01/2024 11:08:07 lipid panel, serum 2024 025 CORINNE Les, [address], [place], [address], 07/01/2024 11:08:08 CBC w/ auto diff 2024 025 CORINNE Les, [address], [place], [address], 07/01/2024 11:08:12 CMP, serum or plasma 2024 025 MATHESON Les, [address], [place], [address], 07/01/2024 11:08:10 HbA1c (hemoglob in A1c), blood 2023 024 CORINNE Les, [address], [place], [address], 01/24/2024 09:13:53 albumin/c reatinine , mass ratio, urine 2023 024 MATHESON Liana, [address], [place], [address], 01/24/2024 09:13:51 noninvasi ve colorecta l cancer DNA + occult blood screening , QL, stool 2023 024 MATHESON [facility] (Cologuard Orders Only), [address], [address], [place], [address], 02/03/2024 22:06:46 lipid panel, serum 2023 024 CORINNE Saldana, [address], [address], [place], [address], 01/24/2024 09:13:52 CMP, serum or plasma 2023 024 CORINNE Saldana, [address], [place], [address], 01/24/2024 09:13:52 CBC w/ auto diff 2023 024 CORINNE Saldana, [address], [place], [address], 01/24/2024 09:13:54 urinalysi s, microscop ic 2023 024 CORINNE Saldana, [address], [place], [address], 01/24/2024 09:13:53 HbA1c (hemoglob in A1c), blood 2023 024 CORINNE Saldana, [address], [address], [place], [address], 07/05/2023 08:20:16 CMP, serum or plasma 2023 024 CORINNE Saldana, [address], [place], [address], 07/05/2023 08:20:15 CBC w/ auto diff 2023 024 CORINNE Saldana, [address], [place], [address], 07/05/2023 08:20:17 CBC 2023 024 [email or web address] [facility], [address], [address], [place], [address], 10/02/2023 11:03:47 TSH, ultra-sen sitive, serum 2023 024 MATHESON [facility], [address], [address], [place], [address], 07/05/2023 08:20:16 unlisted lab - T4, free 2023 024 MATHESON [facility], [address], [place], [address], 07/05/2023 08:20:15 T3, free, serum or plasma 2023 024 [facility], [address], [place], [address], 07/05/2023 08:20:18 Referral podiatris t referral 2024 025 kate Liang Jr DPM, [address], [address], [place], [address], 07/19/2024 14:29:32 Procedures None recorded. Surgeries None recorded. Imaging home sleep study 2024 025 [facility] ([facility]), [address] [facility] [facility], [place], [address], 06/22/2024 15:56:05 Medication Orders Ozempic 0.25 mg or 0.5 mg (2 mg/1.5 mL) subcutane ous pen injector 2023 024 [id number], [address] , [place], [place], [id number], 04/29/2024 09:38:40 Patient TargetsNo targets recorded. 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 METAB OLIC PANEL (14) glucose 185 mg/dL 70-99 above high normal Not Available [facility] ([facility]) [address] [place], [address], 07/05/2023 08:20:15 07/04/19 24 07/05/2023 COMP. METAB OLIC PANEL (14) BUN 7 mg/dL 6-24 Not Available [facility] ([facility]) [address] [place], [address], 07/05/2023 08:20:15 07/04/19 24 07/05/2023 COMP. METAB OLIC PANEL (14) creatinine 0.70 mg/dL 0.76-1 .27 below low normal Not Available [facility] ([facility]) [address] [place], [address], 07/05/2023 08:20:15 07/04/19 24 07/05/2023 COMP. METAB OLIC PANEL (14) eGFR 116 mL/mi n/1.7 3 >59 Not Available [facility] ([facility]) [address], [place], [address], 07/05/2023 08:20:15 07/04/19 24 07/05/2023 COMP. METAB OLIC PANEL (14) BUN/creatini ne ratio 10 9-20 Not Available [facility] ([facility]) [address] [facility], [place], [address], 07/05/2023 08:20:15 07/04/19 24 07/05/2023 COMP. METAB OLIC PANEL (14) sodium 143 mmol/ L 134-14 4 Not Available [facility] ([facility]) [address] [facility], [place], [address], 07/05/2023 08:20:15 07/04/19 24 07/05/2023 COMP. METAB OLIC PANEL (14) potassium 4.2 mmol/ L 3.5-5. 2 Not Available [facility] ([facility]) [address] [facility], [place], [address], 07/05/2023 08:20:15 07/04/19 24 07/05/2023 COMP. METAB OLIC PANEL (14) chloride 98 mmol/ L 96-106 Not Available [facility] ([facility]) [address] [facility], [place], [address], 07/05/2023 08:20:15 07/04/19 24 07/05/2023 COMP. METAB OLIC PANEL (14) carbon dioxide, total 26 mmol/ L 20-29 Not Available [facility] ([facility]) [address] [facility], [place], [address], 07/05/2023 08:20:15 07/04/19 24 07/05/2023 COMP. METAB OLIC PANEL (14) calcium 9.6 mg/dL 8.7-10 .2 Not Available [facility] ([facility]) [address] [facility], [place], [address], 07/05/2023 08:20:15 07/04/19 24 07/05/2023 COMP. METAB OLIC PANEL (14) protein, total 7.0 g/dL 6.0-8. 5 Not Available [facility] ([facility]) [address], [place], [address], 07/05/2023 08:20:15 07/04/19 24 07/05/2023 COMP. METAB OLIC PANEL (14) albumin 4.5 g/dL 4.1-5. 1 Not Available [facility] ([facility]) [address], [place], [address], 07/05/2023 08:20:15 07/04/19 24 07/05/2023 COMP. METAB OLIC PANEL (14) globulin, total 2.5 g/dL 1.5-4. 5 Not Available [facility] ([facility]) [address] [facility], [place], [address], 07/05/2023 08:20:15 07/04/19 24 07/05/2023 COMP. METAB OLIC PANEL (14) A/G ratio 1.8 1.2-2. 2 Not Available [facility] ([facility]) [address] [facility], [place], [address], 07/05/2023 08:20:15 07/04/19 24 07/05/2023 COMP. METAB OLIC PANEL (14) bilirubin, total 0.7 mg/dL 0.0-1. 2 Not Available [facility] ([facility]) [address] [facility] [place], [address], 07/05/2023 08:20:15 07/04/19 24 07/05/2023 COMP. METAB OLIC PANEL (14) alkaline phosphatase 58 IU/L 44-121 Not Available [facility] ([facility]) [address] [facility], [place], [address], 07/05/2023 08:20:15 07/04/19 24 07/05/2023 COMP. METAB OLIC PANEL (14) AST (SGOT) 35 IU/L 0-40 Not Available [facility] ([facility]) [address] [place], [address], 07/05/2023 08:20:15 07/04/19 24 07/05/2023 COMP. METAB OLIC PANEL (14) ALT (SGPT) 65 IU/L 0-44 above high normal Not Available [facility] ([facility]) [address] [facility], [place], [address], 07/05/2023 08:20:15 07/04/19 24 07/05/2023 HEMOG LOBIN A1C hemoglobin A1C 7.5 % 4.8-5. 6 above high normal Predi abete s: 5.7 - 6.4 Diabe surjit: >6.4 Glyce marky contr ol for adult s with diabe surjit: <7.0 Not Available [facility] ([facility]) [address] [place], [address], 07/05/2023 08:20:16 07/04/19 24 07/05/2023 TSH TSH 0.678 uIU/m L 0.450- 4.500 Not Available [facility] ([facility]) [address] [place], [address], 07/05/2023 08:20:16 07/04/19 24 07/05/2023 CBC WITH DIFFE RENTI AL/PL ATELE T WBC 6.3 x10e3 /uL 3.4-10 .8 Not Available [facility] ([facility]) [address] [place], [address], 07/05/2023 08:20:17 07/04/19 24 07/05/2023 CBC WITH DIFFE RENTI AL/PL ATELE T RBC 5.94 x10e6 /uL 4.14-5 .80 above high normal Not Available [facility] ([facility]) [address] [place], [address], 07/05/2023 08:20:17 07/04/19 24 07/05/2023 CBC WITH DIFFE RENTI AL/PL ATELE T hemoglobin 16.6 g/dL 13.0-1 7.7 Not Available [facility] ([facility]) [address] [place], [address], 07/05/2023 08:20:17 07/04/19 24 07/05/2023 CBC WITH DIFFE RENTI AL/PL ATELE T hematocrit 48.6 % 37.5-5 1.0 Not Available [facility] ([facility]) [address] [place], [address], 07/05/2023 08:20:17 07/04/19 24 07/05/2023 CBC WITH DIFFE RENTI AL/PL ATELE T MCV 82 fL 79-97 Not Available [facility] ([facility]) [address] [place], [address], 07/05/2023 08:20:17 07/04/19 24 07/05/2023 CBC WITH DIFFE RENTI AL/PL ATELE T MCH 27.9 pg 26.6-3 3.0 Not Available [facility] ([facility]) [address] [place], [address], 07/05/2023 08:20:17 07/04/19 24 07/05/2023 CBC WITH DIFFE RENTI AL/PL ATELE T MCHC 34.2 g/dL 31.5-3 5.7 Not Available [facility] ([facility]) [address] [place], [address], 07/05/2023 08:20:17 07/04/19 24 07/05/2023 CBC WITH DIFFE RENTI AL/PL ATELE T RDW 12.9 % 11.6-1 5.4 Not Available [facility] ([facility]) [address] [place], [address], 07/05/2023 08:20:17 07/04/19 24 07/05/2023 CBC WITH DIFFE RENTI AL/PL ATELE T platelets 251 x10e3 /uL 150-45 0 Not Available [facility] ([facility]) [address], [place], [address], 07/05/2023 08:20:17 07/04/19 24 07/05/2023 CBC WITH DIFFE RENTI AL/PL ATELE T neutrophils 60 % notest ab. Not Available [facility] ([facility]) [address], [place], [address], 07/05/2023 08:20:17 07/04/19 24 07/05/2023 CBC WITH DIFFE RENTI AL/PL ATELE T lymphs 28 % notest ab. Not Available [facility] ([facility]) [address] [facility], [place], [address], 07/05/2023 08:20:17 07/04/19 24 07/05/2023 CBC WITH DIFFE RENTI AL/PL ATELE T monocytes 7 % notest ab. Not Available [facility] ([facility]) [address] [facility], [place], [address], 07/05/2023 08:20:17 07/04/19 24 07/05/2023 CBC WITH DIFFE RENTI AL/PL ATELE T eos 3 % notest ab. Not Available [facility] ([facility]) [address] [facility], [place], [address], 07/05/2023 08:20:17 07/04/19 24 07/05/2023 CBC WITH DIFFE RENTI AL/PL ATELE T basos 1 % notest ab. Not Available [facility] ([facility]) [address] [facility], [place], [address], 07/05/2023 08:20:17 07/04/19 24 07/05/2023 CBC WITH DIFFE RENTI AL/PL ATELE T neutrophils (absolute) 3.8 x10e3 /uL 1.4-7. 0 Not Available [facility] ([facility]) [address] [facility], [place], [address], 07/05/2023 08:20:17 07/04/19 24 07/05/2023 CBC WITH DIFFE RENTI AL/PL ATELE T lymphs (absolute) 1.7 x10e3 /uL 0.7-3. 1 Not Available [facility] ([facility]) [address] [facility], [place], [address], 07/05/2023 08:20:17 07/04/19 24 07/05/2023 CBC WITH DIFFE RENTI AL/PL ATELE T monocytes(ab solute) 0.4 x10e3 /uL 0.1-0. 9 Not Available [facility] ([facility]) [address] [facility], [place], [address], 07/05/2023 08:20:17 07/04/19 24 07/05/2023 CBC WITH DIFFE RENTI AL/PL ATELE T eos (absolute) 0.2 x10e3 /uL 0.0-0. 4 Not Available [facility] ([facility]) [address] [facility], [place], [address], 07/05/2023 08:20:17 07/04/19 24 07/05/2023 CBC WITH DIFFE RENTI AL/PL ATELE T baso (absolute) 0.1 x10e3 /uL 0.0-0. 2 Not Available [facility] ([facility]) [address] [place], [address], 07/05/2023 08:20:17 07/04/19 24 07/05/2023 CBC WITH DIFFE RENTI AL/PL ATELE T immature granulocytes 1 % notest ab. Not Available [facility] ([facility]) [address] [place], [address], 07/05/2023 08:20:17 07/04/19 24 07/05/2023 CBC WITH DIFFE RENTI AL/PL ATELE T immature grans (abs) 0.1 x10e3 /uL 0.0-0. 1 Not Available [facility] ([facility]) [address] [facility], [place], [address], 07/05/2023 08:20:17 07/04/19 24 07/05/2023 TRIIO DOTHY BRAIN E (T3), FREE triiodothyro nine (T3), free 3.1 pg/mL 2.0-4. 4 Not Available [facility] ([facility]) [address] [place], [address], 07/05/2023 08:20:18 01/23/20 24 01/24/2024 ALBUM IN/CR EATIN INE RATIO ,URIN E creatinine, urine 37.0 mg/dL notest ab. Not Available [facility] ([facility]) [address] [facility], [place], [address], 01/24/2024 09:13:51 01/23/20 24 01/24/2024 ALBUM IN/CR EATIN INE RATIO ,URIN E albumin, urine 56.9 ug/mL notest ab. Not Available [facility] ([facility]) [address] [place], [address], 01/24/2024 09:13:51 01/23/20 24 01/24/2024 ALBUM IN/CR EATIN INE RATIO ,URIN E alb/creat ratio 154 mg/g_ creat 0-29 above high normal Soraya l: 0 - 29 Moder ately incre ased: 30 - 300 Sever kurt incre ased: >300 Not Available [facility] ([facility]) [address] [place], [address], 01/24/2024 09:13:51 01/23/20 24 01/24/2024 LIPID PANEL cholesterol, total 154 mg/dL 100-19 9 Not Available [facility] ([facility]) [address] [facility], [address], 01/24/2024 09:13:52 01/23/20 24 01/24/2024 LIPID PANEL triglyceride s 225 mg/dL 0-149 above high normal Not Available [facility] ([facility]) [address] [place], [address], 01/24/2024 09:13:52 01/23/20 24 01/24/2024 LIPID PANEL HDL cholesterol 36 mg/dL >39 below low normal Not Available [facility] ([facility]) [address] [place], [address], 01/24/2024 09:13:52 01/23/20 24 01/24/2024 LIPID PANEL VLDL cholesterol dinesh 38 mg/dL 5-40 Not Available [facility] ([facility]) [address] [place], [address], 01/24/2024 09:13:52 01/23/2001/24/2024 LIPID PANEL LDL chol calc ([facility]) 80 mg/dL 0-99 Not Available [facility] ([facility]) [address] [place], [address], 01/24/2024 09:13:52 01/23/2001/24/2024 COMP. METAB OLIC PANEL (14) glucose 171 mg/dL 70-99 above high normal Not Available [facility] ([facility]) [address] [place], [address], 01/24/2024 09:13:52 01/23/2001/24/2024 COMP. METAB OLIC PANEL (14) BUN 9 mg/dL 6-24 Not Available [facility] ([facility]) [address] [place], [address], 01/24/2024 09:13:52 01/23/20 24 01/24/2024 COMP. METAB OLIC PANEL (14) creatinine 0.76 mg/dL 0.76-1 .27 Not Available [facility] ([facility]) [address] [facility], [place], [address], 01/24/2024 09:13:52 01/23/20 24 01/24/2024 COMP. METAB OLIC PANEL (14) eGFR 113 mL/mi n/1.7 3 >59 Not Available [facility] ([facility]) [address] [facility], [place], [address], 01/24/2024 09:13:52 01/23/20 24 01/24/2024 COMP. METAB OLIC PANEL (14) BUN/creatini ne ratio 12 9-20 Not Available [facility] ([facility]) [address] [facility], [place], [address], 01/24/2024 09:13:52 01/23/20 24 01/24/2024 COMP. METAB OLIC PANEL (14) sodium 139 mmol/ L 134-14 4 Not Available [facility] ([facility]) [address] [place], [address], 01/24/2024 09:13:52 01/23/20 24 01/24/2024 COMP. METAB OLIC PANEL (14) potassium 3.8 mmol/ L 3.5-5. 2 Not Available [facility] ([facility]) [address] [facility], [place], [address], 01/24/2024 09:13:52 01/23/20 24 01/24/2024 COMP. METAB OLIC PANEL (14) chloride 97 mmol/ L 96-106 Not Available [facility] ([facility]) [address] [place], [address], 01/24/2024 09:13:52 01/23/20 24 01/24/2024 COMP. METAB OLIC PANEL (14) carbon dioxide, total 25 mmol/ L 20-29 Not Available [facility] ([facility]) [address] [place], [address], 01/24/2024 09:13:52 01/23/20 24 01/24/2024 COMP. METAB OLIC PANEL (14) calcium 9.1 mg/dL 8.7-10 .2 Not Available [facility] ([facility]) [address] [place], [address], 01/24/2024 09:13:52 01/23/20 24 01/24/2024 COMP. METAB OLIC PANEL (14) protein, total 6.6 g/dL 6.0-8. 5 Not Available [facility] ([facility]) [address] [place], [address], 01/24/2024 09:13:52 01/23/20 24 01/24/2024 COMP. METAB OLIC PANEL (14) albumin 4.1 g/dL 4.1-5. 1 Not Available [facility] ([facility]) [address] [place], [address], 01/24/2024 09:13:52 01/23/20 24 01/24/2024 COMP. METAB OLIC PANEL (14) globulin, total 2.5 g/dL 1.5-4. 5 Not Available [facility] ([facility]) [address] [place], [address], 01/24/2024 09:13:52 01/23/20 24 01/24/2024 COMP. METAB OLIC PANEL (14) bilirubin, total 0.9 mg/dL 0.0-1. 2 Not Available [facility] ([facility]) [address] [place], [address], 01/24/2024 09:13:52 01/23/20 24 01/24/2024 COMP. METAB OLIC PANEL (14) alkaline phosphatase 48 IU/L 44-121 Not Available [facility] ([facility]) [address] [facility], [place], [address], 01/24/2024 09:13:52 01/23/20 24 01/24/2024 COMP. METAB OLIC PANEL (14) AST (SGOT) 34 IU/L 0-40 Not Available [facility] ([facility]) [address], [place], [address], 01/24/2024 09:13:52 01/23/20 24 01/24/2024 COMP. METAB OLIC PANEL (14) ALT (SGPT) 62 IU/L 0-44 above high normal Not Available [facility] ([facility]) [address], [place], [address], 01/24/2024 09:13:52 01/23/20 24 01/24/2024 MICRO SCOPI C EXAMI NATIO N WBC NONE SEEN /hpf 0-5 Not Available [facility] ([facility]) [address] [facility], [place], [address], 01/24/2024 09:13:53 01/23/20 24 01/24/2024 MICRO SCOPI C EXAMI NATIO N RBC NONE SEEN /hpf 0-2 Not Available [facility] ([facility]) [address] [facility], [place], [address], 01/24/2024 09:13:53 01/23/20 24 01/24/2024 MICRO SCOPI C EXAMI NATIO N epithelial cells (non renal) NONE SEEN /hpf 0-10 Not Available [facility] ([facility]) [address] [facility], [place], [address], 01/24/2024 09:13:53 01/23/2001/24/2024 MICRO SCOPI C EXAMI NATIO N casts NONE SEEN /lpf nonese en Not Available [facility] ([facility]) [address] [facility], [place], [address], 01/24/2024 09:13:53 01/23/2001/24/2024 MICRO SCOPI C EXAMI NATIO N bacteria NONE SEEN nonese en/few Not Available [facility] ([facility]) [address] [facility], [place], [address], 01/24/2024 09:13:53 01/23/20 24 01/24/2024 HEMOG LOBIN A1C hemoglobin A1C 7.9 % 4.8-5. 6 above high normal Predi abete s: 5.7 - 6.4 Diabe surjit: >6.4 Glyce marky contr ol for adult s with diabe surjit: <7.0 Not Available [facility] ([facility]) [address] [facility], [place], [address], 01/24/2024 09:13:53 01/23/20 24 01/24/2024 CBC WITH DIFFE RENTI AL/PL ATELE T WBC 6.7 x10e3 /uL 3.4-10 .8 Not Available [facility] ([facility]) [address] [facility], [place], [address], 01/24/2024 09:13:54 01/23/20 24 01/24/2024 CBC WITH DIFFE RENTI AL/PL ATELE T RBC 5.87 x10e6 /uL 4.14-5 .80 above high normal Not Available [facility] ([facility]) [address] [place], [address], 01/24/2024 09:13:54 01/23/20 24 01/24/2024 CBC WITH DIFFE RENTI AL/PL ATELE T hemoglobin 15.9 g/dL 13.0-1 7.7 Not Available [facility] ([facility]) [address] [place], [address], 01/24/2024 09:13:54 01/23/20 24 01/24/2024 CBC WITH DIFFE RENTI AL/PL ATELE T hematocrit 49.1 % 37.5-5 1.0 Not Available [facility] ([facility]) [address] [facility], [place], [address], 01/24/2024 09:13:54 01/23/2001/24/2024 CBC WITH DIFFE RENTI AL/PL ATELE T MCV 84 fL 79-97 Not Available [facility] ([facility]) [address] [facility], [place], [address], 01/24/2024 09:13:54 01/23/2001/24/2024 CBC WITH DIFFE RENTI AL/PL ATELE T MCH 27.1 pg 26.6-3 3.0 Not Available [facility] ([facility]) [address] [facility], [place], [address], 01/24/2024 09:13:54 01/23/20 24 01/24/2024 CBC WITH DIFFE RENTI AL/PL ATELE T MCHC 32.4 g/dL 31.5-3 5.7 Not Available [facility] ([facility]) [address] [facility], [place], [address], 01/24/2024 09:13:54 01/23/2001/24/2024 CBC WITH DIFFE RENTI AL/PL ATELE T RDW 12.5 % 11.6-1 5.4 Not Available [facility] ([facility]) [address] [facility], [place], [address], 01/24/2024 09:13:54 01/23/2001/24/2024 CBC WITH DIFFE RENTI AL/PL ATELE T platelets 255 x10e3 /uL 150-45 0 Not Available [facility] ([facility]) [address] [place], [address], 01/24/2024 09:13:54 01/23/20 24 01/24/2024 CBC WITH DIFFE RENTI AL/PL ATELE T neutrophils 57 % notest ab. Not Available [facility] ([facility]) [address] [facility], [place], [address], 01/24/2024 09:13:54 01/23/20 24 01/24/2024 CBC WITH DIFFE RENTI AL/PL ATELE T lymphs 29 % notest ab. Not Available [facility] ([facility]) [address] [facility], [place], [address], 01/24/2024 09:13:54 01/23/20 24 01/24/2024 CBC WITH DIFFE RENTI AL/PL ATELE T monocytes 8 % notest ab. Not Available [facility] ([facility]) [address] [facility], [place], [address], 01/24/2024 09:13:54 01/23/20 24 01/24/2024 CBC WITH DIFFE RENTI AL/PL ATELE T eos 4 % notest ab. Not Available [facility] ([facility]) [address] [facility], [place], [address], 01/24/2024 09:13:54 01/23/20 24 01/24/2024 CBC WITH DIFFE RENTI AL/PL ATELE T basos 1 % notest ab. Not Available [facility] ([facility]) [address] [facility], [place], [address], 01/24/2024 09:13:54 01/23/20 24 01/24/2024 CBC WITH DIFFE RENTI AL/PL ATELE T neutrophils (absolute) 3.9 x10e3 /uL 1.4-7. 0 Not Available [facility] ([facility]) [address] [facility], [place], [address], 01/24/2024 09:13:54 01/23/20 24 01/24/2024 CBC WITH DIFFE RENTI AL/PL ATELE T lymphs (absolute) 2.0 x10e3 /uL 0.7-3. 1 Not Available [facility] ([facility]) [address] [facility], [place], [address], 01/24/2024 09:13:54 01/23/20 24 01/24/2024 CBC WITH DIFFE RENTI AL/PL ATELE T monocytes(ab solute) 0.5 x10e3 /uL 0.1-0. 9 Not Available [facility] ([facility]) [address] [facility], [place], [address], 01/24/2024 09:13:54 01/23/20 24 01/24/2024 CBC WITH DIFFE RENTI AL/PL ATELE T eos (absolute) 0.2 x10e3 /uL 0.0-0. 4 Not Available [facility] ([facility]) [address] [facility], [place], [address], 01/24/2024 09:13:54 01/23/20 24 01/24/2024 CBC WITH DIFFE RENTI AL/PL ATELE T baso (absolute) 0.1 x10e3 /uL 0.0-0. 2 Not Available [facility] [facility]) [address] [facility], [place], [address], 01/24/2024 09:13:54 01/23/20 24 01/24/2024 CBC WITH DIFFE RENTI AL/PL ATELE T immature granulocytes 1 % notest ab. Not Available [facility] ([facility]) [address] [facility], [place], [address], 01/24/2024 09:13:54 01/23/20 24 01/24/2024 CBC WITH DIFFE RENTI AL/PL ATELE T immature grans (abs) 0.0 x10e3 /uL 0.0-0. 1 Not Available [facility] ([facility]) [address] [facility], [place], [address], 01/24/2024 09:13:54 01/27/20 24 01/27/2024 COLOG UARD cologuard result reportable No Result Obtain ed n/a There was insuf ficie nt stool DNA detec nena to produ ce a valid Colog uard resul t. The patie nt will be conta cted to initi ate a new sampl e colle ction . Not Available [facility] (Cologuard Orders Only) [address], [place], [address], 02/03/2024 22:06:46 02/11/20 24 02/11/2024 COLOG UARD cologuard result reportable Negati ve negati ve normal NEGAT DANIEL TEST RESUL T. A negat daniel Colog uard resul t indic ates a low likel ihood that a color ectal cance r (CRC) or advan bethel adeno ma (abdirashid omato us polyp s with more advan bethel pre-m align ant featu res) is prese nt. The chanc e that a perso n with a [...] of 10,00 0 indiv idual s at [place] risk for color ectal cance r who were scree [place] with both Colog uard and colon oscop y. (Hina Gayle et al, N Engl J Med 2014; 370(1 4):12 86-12 97) The soraya l value (refe rence range ) for this assay is negat daniel. COLOG UARD RE-SC REEROSEANNE FLYNN RECOM MENDA TION: Perio dic color ectal cance r scree sandie is an impor tant part of preve ntive healt hcare for asymp tomat ic indiv idual s at [place] risk for color ectal cance r. Follo wing a negat daniel Colog uard resul t, the Ameri can Cance r Socie ty and U.S. Multi -Soci ety Task Force scree sandie guide lines recom mend a Colog uard re-sc reeni ng inter tyson of 3 years . Refer ences : Ameri can Cance r Socie ty Guide line for Color ectal Cance r Scree sandie: https ://annette w.can cer.o rg/ca ncer/ colon -rect al-ca ncer/ detec tion- diagn osis- stagi ng/ac s-rec ommen datio ns.ht ml.; Ag DK, Jacqueline loco CR, Miah nuñez JK, Color ectal Cance r Scree sandie: Recom menda tions for Physi cians and Patie nts from the U.S. Multi -Soci ety Task Force on Color ectal Cance r Scree sandie , Am Isaias Gastr oente rolog y 2017; 112:1 016-1 030. TEST DESCR IPTIO N: Tebbetts site algor ithmi c ailin sis of [...] years or older , who are at [facility] for color ectal cance r (CRC) . Colog uard has been appro saud for use by the U.S. FDA. The perfo rmanc e of Colog uard was estab lishe d in a cross secti onal study of [facility] adult s aged 50-84 . Colog uard [...] cross -sect ional scree sandie study of 0 [facility] for color ectal cance [...] r). The curre nt Colog uard scree sandie inter tyson is every 3 years . (Amer ican Cance r Socie ty and U.S. Multi -Soci ety Task Force ). Colog uard perfo rmanc e data in a 0 patie nt pivot al study using colon oscop y as the refer ence metho d can be acces sed at the follo wing locat ion: www.e xactl abs.c om/re sults . Addit ional descr iptio n of the Colog uard test proce ss, warni ngs and preca ution s can be found at www.c eligio daltond.c om. Not Available [facility] (Cologuard Orders Only) [address], [place], [address], 02/18/2024 21:27:01 07/01/19 25 07/01/2024 ALBUM IN/CR EATIN INE RATIO ,URIN E creatinine, urine 64.8 mg/dL notest ab. Not Available [facility] ([facility]) [address] [facility], [place], [address], 07/01/2024 11:08:07 07/01/19 25 07/01/2024 ALBUM IN/CR EATIN INE RATIO ,URIN E albumin, urine 101.4 ug/mL notest ab. Not Available [facility] ([facility]) [address] [place], [address], 07/01/2024 11:08:07 07/01/19 25 07/01/2024 ALBUM IN/CR EATIN INE RATIO ,URIN E alb/creat ratio 156 mg/g_ creat 0-29 above high normal Soraya l: 0 - 29 Moder ately incre ased: 30 - 300 Sever kurt incre ased: >300 Not Available [facility] ([facility]) [address] [place], [address], 07/01/2024 11:08:07 07/01/19 25 07/01/2024 LIPID PANEL cholesterol, total 162 mg/dL 100-19 9 Not Available [facility] ([facility]) [address] [place], [address], 07/01/2024 11:08:08 07/01/19 25 07/01/2024 LIPID PANEL triglyceride s 160 mg/dL 0-149 above high normal Not Available [facility] ([facility]) [address] [place], [address], 07/01/2024 11:08:08 07/01/19 25 07/01/2024 LIPID PANEL HDL cholesterol 40 mg/dL >39 Not Available [facility] ([facility]) [address] [place], [address], 07/01/2024 11:08:08 07/01/19 25 07/01/2024 LIPID PANEL VLDL cholesterol dinesh 28 mg/dL 5-40 Not Available [facility] ([facility]) [address] [place], [address], 07/01/2024 11:08:08 07/01/19 25 07/01/2024 LIPID PANEL LDL chol calc ([facility]) 94 mg/dL 0-99 Not Available [facility] ([facility]) [address] [place], [address], 07/01/2024 11:08:08 07/01/19 25 07/01/2024 COMP. METAB OLIC PANEL (14) glucose 164 mg/dL 70-99 above high normal Not Available [facility] ([facility]) [address] [place], [address], 07/01/2024 11:08:10 07/01/19 25 07/01/2024 COMP. METAB OLIC PANEL (14) BUN 10 mg/dL 6-24 Not Available [facility] ([facility]) [address] [place], [address], 07/01/2024 11:08:10 07/01/19 25 07/01/2024 COMP. METAB OLIC PANEL (14) creatinine 0.80 mg/dL 0.76-1 .27 Not Available [facility] ([facility]) [address] [place], [address], 07/01/2024 11:08:10 07/01/19 25 07/01/2024 COMP. METAB OLIC PANEL (14) eGFR 111 mL/mi n/1.7 3 >59 Not Available [facility] ([facility]) [address] [place], [address], 07/01/2024 11:08:10 07/01/19 25 07/01/2024 COMP. METAB OLIC PANEL (14) BUN/creatini ne ratio 13 9-20 Not Available [facility] ([facility]) [address] [place], [address], 07/01/2024 11:08:10 07/01/19 25 07/01/2024 COMP. METAB OLIC PANEL (14) sodium 141 mmol/ L 134-14 4 Not Available [facility] ([facility]) [address] [place], [address], 07/01/2024 11:08:10 07/01/19 25 07/01/2024 COMP. METAB OLIC PANEL (14) potassium 4.1 mmol/ L 3.5-5. 2 Not Available [facility] ([facility]) [address] [place], [address], 07/01/2024 11:08:10 07/01/19 25 07/01/2024 COMP. METAB OLIC PANEL (14) chloride 97 mmol/ L 96-106 Not Available [facility] ([facility]) [address] [place], [address], 07/01/2024 11:08:10 07/01/19 25 07/01/2024 COMP. METAB OLIC PANEL (14) carbon dioxide, total 28 mmol/ L 20-29 Not Available [facility] ([facility]) [address] [place], [address], 07/01/2024 11:08:10 07/01/19 25 07/01/2024 COMP. METAB OLIC PANEL (14) calcium 9.7 mg/dL 8.7-10 .2 Not Available [facility] ([facility]) [address] [place], [address], 07/01/2024 11:08:10 07/01/19 25 07/01/2024 COMP. METAB OLIC PANEL (14) protein, total 7.0 g/dL 6.0-8. 5 Not Available [facility] ([facility]) [address] [facility] [place], [address], 07/01/2024 11:08:10 07/01/19 25 07/01/2024 COMP. METAB OLIC PANEL (14) albumin 4.6 g/dL 4.1-5. 1 Not Available [facility] ([facility]) [address] [place], [address], 07/01/2024 11:08:10 07/01/19 25 07/01/2024 COMP. METAB OLIC PANEL (14) globulin, total 2.4 g/dL 1.5-4. 5 Not Available [facility] ([facility]) [address] [facility] [place], [address], 07/01/2024 11:08:10 07/01/19 25 07/01/2024 COMP. METAB OLIC PANEL (14) bilirubin, total 0.8 mg/dL 0.0-1. 2 Not Available [facility] ([facility]) [address] [facility] [place], [address], 07/01/2024 11:08:10 07/01/19 25 07/01/2024 COMP. METAB OLIC PANEL (14) alkaline phosphatase 54 IU/L 44-121 Not Available [facility] ([facility]) [address] [facility] [place], [address], 07/01/2024 11:08:10 07/01/19 25 07/01/2024 COMP. METAB OLIC PANEL (14) AST (SGOT) 51 IU/L 0-40 above high normal Not Available [facility] ([facility]) [address] [facility], [place], [address], 07/01/2024 11:08:10 07/01/19 25 07/01/2024 COMP. METAB OLIC PANEL (14) ALT (SGPT) 89 IU/L 0-44 above high normal Not Available [facility] ([facility]) [address] [facility], [place], [address], 07/01/2024 11:08:10 07/01/19 25 07/01/2024 HEMOG LOBIN A1C hemoglobin A1C 7.3 % 4.8-5. 6 above high normal Predi abete s: 5.7 - 6.4 Diabe surjit: >6.4 Glyce marky contr ol for adult s with diabe surjit: <7.0 Not Available [facility] ([facility]) [address] [facility], [place], [address], 07/01/2024 11:08:11 07/01/19 25 07/01/2024 CBC WITH DIFFE RENTI AL/PL ATELE T WBC 6.5 x10e3 /uL 3.4-10 .8 Not Available [facility] ([facility]) [address] [facility], [place], [address], 07/01/2024 11:08:12 07/01/19 25 07/01/2024 CBC WITH DIFFE RENTI AL/PL ATELE T RBC 5.93 x10e6 /uL 4.14-5 .80 above high normal Not Available [facility] ([facility]) [address] [facility], [place], [address], 07/01/2024 11:08:12 07/01/19 25 07/01/2024 CBC WITH DIFFE RENTI AL/PL ATELE T hemoglobin 16.2 g/dL 13.0-1 7.7 Not Available [facility] ([facility]) [address] [place], [address], 07/01/2024 11:08:12 07/01/19 25 07/01/2024 CBC WITH DIFFE RENTI AL/PL ATELE T hematocrit 49.5 % 37.5-5 1.0 Not Available [facility] ([facility]) [address] [place], [address], 07/01/2024 11:08:12 07/01/19 25 07/01/2024 CBC WITH DIFFE RENTI AL/PL ATELE T MCV 84 fL 79-97 Not Available [facility] ([facility]) [address] [place], [address], 07/01/2024 11:08:12 07/01/19 25 07/01/2024 CBC WITH DIFFE RENTI AL/PL ATELE T MCH 27.3 pg 26.6-3 3.0 Not Available [facility] ([facility]) [address] [place], [address], 07/01/2024 11:08:12 07/01/19 25 07/01/2024 CBC WITH DIFFE RENTI AL/PL ATELE T MCHC 32.7 g/dL 31.5-3 5.7 Not Available [facility] ([facility]) [address] [facility], [place], [address], 07/01/2024 11:08:12 07/01/19 25 07/01/2024 CBC WITH DIFFE RENTI AL/PL ATELE T RDW 12.7 % 11.6-1 5.4 Not Available [facility] ([facility]) [address] [facility], [place], [address], 07/01/2024 11:08:12 07/01/19 25 07/01/2024 CBC WITH DIFFE RENTI AL/PL ATELE T platelets 264 x10e3 /uL 150-45 0 Not Available [facility] ([facility]) [address] [facility], [place], [address], 07/01/2024 11:08:12 07/01/19 25 07/01/2024 CBC WITH DIFFE RENTI AL/PL ATELE T neutrophils 58 % notest ab. Not Available [facility] ([facility]) [address] [place], [address], 07/01/2024 11:08:12 07/01/19 25 07/01/2024 CBC WITH DIFFE RENTI AL/PL ATELE T lymphs 27 % notest ab. Not Available [facility] ([facility]) [address] [place], [address], 07/01/2024 11:08:12 07/01/19 25 07/01/2024 CBC WITH DIFFE RENTI AL/PL ATELE T monocytes 9 % notest ab. Not Available [facility] ([facility]) [address] [place], [address], 07/01/2024 11:08:12 07/01/19 25 07/01/2024 CBC WITH DIFFE RENTI AL/PL ATELE T eos 4 % notest ab. Not Available [facility] ([facility]) [address] [facility], [place], [address], 07/01/2024 11:08:12 07/01/19 25 07/01/2024 CBC WITH DIFFE RENTI AL/PL ATELE T basos 1 % notest ab. Not Available [facility] ([facility]) [address] [facility], [place], [address], 07/01/2024 11:08:12 07/01/19 25 07/01/2024 CBC WITH DIFFE RENTI AL/PL ATELE T neutrophils (absolute) 3.8 x10e3 /uL 1.4-7. 0 Not Available [facility] ([facility]) [address] [facility], [place], [address], 07/01/2024 11:08:12 07/01/19 25 07/01/2024 CBC WITH DIFFE RENTI AL/PL ATELE T lymphs (absolute) 1.7 x10e3 /uL 0.7-3. 1 Not Available [facility] ([facility]) [address] [facility], [place], [address], 07/01/2024 11:08:12 07/01/19 25 07/01/2024 CBC WITH DIFFE RENTI AL/PL ATELE T monocytes(ab solute) 0.6 x10e3 /uL 0.1-0. 9 Not Available [facility] ([facility]) [address] [facility], [place], [address], 07/01/2024 11:08:12 07/01/19 25 07/01/2024 CBC WITH DIFFE RENTI AL/PL ATELE T eos (absolute) 0.3 x10e3 /uL 0.0-0. 4 Not Available [facility] ([facility]) [address] [facility], [place], [address], 07/01/2024 11:08:12 07/01/19 25 07/01/2024 CBC WITH DIFFE RENTI AL/PL ATELE T baso (absolute) 0.1 x10e3 /uL 0.0-0. 2 Not Available [facility] ([facility]) [address] [facility], [place], [address], 07/01/2024 11:08:12 07/01/19 25 07/01/2024 CBC WITH DIFFE RENTI AL/PL ATELE T immature granulocytes 1 % notest ab. Not Available [facility] ([facility]) [address] [facility], [place], [address], 07/01/2024 11:08:12 07/01/19 25 07/01/2024 CBC WITH DIFFE RENTI AL/PL ATELE T immature grans (abs) 0.1 x10e3 /uL 0.0-0. 1 Not Available [facility] ([facility]) [address] [facility], [place], [address], 07/01/2024 11:08:12 06/21/19 25 06/16/2024 home sleep study No observ ation record ed. [facility] [address] [place], [address], 07/07/2024 12:51:44 Result Notes None recorded. Problems Name Problem SNOMED Code Status Onset Date Resolution Date Notes Provider Name and Address Organization Details Recorded Time Essential hypertension 90091956 Active 2023 Derrell French MD Attn: Ashli lares,[address] [place], [address], [facility] - [facility] 4 16:25:57 Type 2 diabetes mellitus 74840961 Active 2023 Derrell French MD Attn: Ashli lares,[address] [place], [address], [place] - [facility] 4 16:25:59 Gastroesophage al reflux disease without esophagitis 613569621 Active 2023 Derrell French MD Attn: Ashli lares,[address] [place], [address], [place] - [facility] 4 16:27:56 Anxiety 47998964 Active 2023 Derrell French MD Attn: Ashli lares,[address] [facility], [place], [address], [place] - [facility] 4 16:27:57 Chronic rhinitis 58820973 Active 2023 Derrell French MD Attn: Ashli lares,[address] [facility], [place], [address], [place] - [facility] 4 16:28:00 Obesity 845932179 Active 2023 Derrell French MD Attn: Ashli lares,[address] [facility], [place], [address], [place] - [facility] 4 16:28:01 Hyperlipidemia 56010042 Active 2023 Derrell French MD Attn: Ashli lares,[address] [facility], [place], [address], [place] - [facility] 4 16:28:03 Liver function tests outside reference range 040826170 Active 2024 Arash Vazquez MA null, [place] - [facility] 5 11:16:01 Problem Notes None recorded. Procedures Surgical History Date Name Laterality Status Provider Name and Address Organization Details Recorded Time Eye Surgery completed Daniel Romero MA [facility] 07/03/2023 16:48:54 Nasal sinus therapy completed Daniel Romero MA [facility] 07/03/2023 16:49:58 Imaging Results Imaging Date Name Status LastModified by Organiz [facility] Details LastModified Time 06/16/2024 home sleep study completed [facility] [address] [place], [address], 07/07/2024 12:51:44 Procedure Notes None recorded. Medical Equipment None [...] Not Available Not Available No t Available azithromyci n 250 mg tablet TAKE 2 TABLETS BY MOUTH FOR 1 DAY THEN TAKE 1 TABLET BY MOUTH DAILY FOR 4 DAYS active Not Available Not Available No t Available metoprolol tartrate 100 mg tablet TAKE 1 TABLET BY MOUTH TWICE DAILY active Not Available Not Available No t Available benzonatate 200 mg capsule TAKE 1 CAPSULE BY MOUTH THREE TIMES DAILY FOR 7 DAYS active Not Available [...] Not Available Not Available No t Available montelukast 10 mg tablet TAKE 1 TABLET [...] Not Available Not Available No t Available eszopiclone 3 mg tablet TAKE 1 TABLET BY MOUTH EVERY DAY AT BEDTIME active Not Available Not Available No t Available Farxiga 5 mg tablet TAKE 1 TABLET BY MOUTH EVERY DAY active Not Available Not Available No t Available Bydureon BCise 2 mg/0.85 mL subcutaneou s [...] injector INJECT 1 MG UNDER THE SKIN ONE DAY A [...] Address Organization Details Last Updated DateTime 4 833662. 11 g 45.3 kg/m2 187.96 cm 97 % 97 % 83 /min 162 mm[Hg] 90 mm[Hg] Daniel Romero MA [facility] 4 16:53:56 Date Recorded Body height Body mass index (BMI) Body weight Heart rate Oxygen saturation Oxygen saturation in Arterial blood by Pulse oximetry Systolic blood pressure Diastolic blood pressure Provider Name and Address Organization Details Last Updated DateTime 4 187.96 cm 47.4 kg/m2 274026. 58 g 90 /min 97 % 97 % 138 mm[Hg] 72 mm[Hg] Samantha Garibay MA [facility] 4 16:53:26 Date Recorded Body height Body mass index (BMI) Body weight Heart rate Oxygen saturation Oxygen saturation in Arterial blood by Pulse oximetry Systolic blood pressure Diastolic blood pressure Provider Name and Address Organization Details Last Updated DateTime 5 187.96 cm 46 kg/m2 346444. 43 g 91 /min 95 % 95 % 122 mm[Hg] 84 mm[Hg] Lexy Day MA [facility] 5 16:24:48 Social History Question Answer Notes LastModified by Organizat ion Details LastModified Time Tobacco Smoking Status Never Smoker Daniel Romero MA [facility] 07/03/2023 16:47:27 Do You Have An Advance [...] Have You Had Close Contact With A Laboratory-confir med COVID-19 While That Case Was Ill? No [...] Or The Highest Degree You Have Received? [id number] Information not available 07/03/2023 What Is Your [...] Anxious, Or Unable To Sleep At Night)? [id number] Information not available 07/03/2023 Do You Use [...] Skin Problems N Anemia N Heart Attack ([place]) N Diabetes Y Seizures/Epilepsy N Asthma N Allergies N Hepatitis N Heart Failure N Osteoporosis N Past Encounters Encounter ID Performer Location Encounter Start Date Encounter Closed Date Diagnosis/Indication Diagnosis SNOMED-CT Code Diagnosis ICD10 Code Diagnosis Note [id number] Derrell French MD [facility] (Adult Med) [address] [place] [address] 07/03/2023 16:28:51 07/03/2023 17:29:29 Essential hypertension 24803648 I10 Type 2 kamran betes mellitus 74895728 E11.9 Hyperlipidemia 39192409 E78.5 Obesity 498953603 E66.9 Chronic rhinitis 6042320 6 J31.0 Anxiety 99212463 F41.9 Gastroesop hageal reflux disease without esophagitis 349456076 K21.9 [id number] Derrell French MD [facility] [address] [place] [address] 01/22/2024 16:12:33 01/22/2024 17:26:24 Morbid obesity 330856524 E66.01 Essential hypertension 47827454 I10 Screening for malignant neoplasm of colon 435014535 Z12.11 Type 2 kamran betes mellitus 53245904 E11.9 Chronic rhinitis 9960605 6 J31.0 Anxiety 13322870 F41.9 Gastroesop hageal reflux disease without esophagitis 499363017 K21.9 Hyperlipidemia 84299146 E78.5 Obesity 533917170 E66.9 [id number] Derrell French MD [facility] [place] [address] [place] [address] 05/27/2024 16:07:53 05/27/2024 17:50:51 Body mass index 40+ - severely obese 436981533 Z68.42 Morbid obesity 724560721 E66.01 Essential hypertension 48988284 I10 Type 2 akmran betes mellitus 66143269 E11.9 Hyperlipidemia 30319426 E78.5 Sleep disorder 07959694 G47.9 Chronic rhinitis 1640170 6 J31.0 Anxiety 14141896 F41.9 Obesity 564046790 E66.9 Gastroesop hageal reflux disease without esophagitis 889472648 K21.9 Health Concerns Section Related Observation LastModified by Organization Detai ls LastModified Time None Recorded Concern Status LastModified by Organization Details LastModified Time None Recorded Advance Directives Directive N: Payers Encounter Date Sequence Insurance Name Policy Number Policy Albright Covered Member ID Albright Member ID Guarantor Name 07/03/2023 1 [place] [id number] Mynor Gloria [id number] Mynor Gloria 01/22/2024 1 [place] [id number] Mynor Gloria [id number] Mynor Gloria 05/27/2024 1 [place] [id number] Mynor Gloria [id number] Mynor Gloria Notes Date Note Type Note Provider Name and Address Organization Details Recorded Time 07/03/2023 text/html Hypertension no headache no dizziness blood pressure appropriate. Atorvastatin no polydipsia does not take his like he should anxiety citalopram be doing well. Rhinitis montelukast seems to be doing fine Derrell French MD Attn: [address] [place], [address], [facility] 07/13/2023 16:28:38 01/22/2024 text/html Hypertension no headache no dizziness blood pressure appropriate. Atorvastatin no polydipsia does not take his like he should anxiety citalopram be doing well. Rhinitis montelukast seems to be doing fine. Derrell French MD Attn: [employer], [place], [address], [facility] 01/23/2024 11:46:30 05/27/2024 text/html follow up of [...] vomiting Derrell French MD Attn: Account[address], [place], [address], [facility] 05/29/2024 13:36:06
--- NOTE | 2024-08-24 12:14 | WPDSLEEPSTUD ---
Sleep Study Date of Study: 07/30/24 Ordering Provider: Tim French, Interpreting Physician: Aspen Gilbert DO Sleep Study Type: CPAP Titration Height: 1.88 m Weight: 163.293 kg Body Mass Index: 46.2 Neck Circumference (inches): 18 [place]: 11 Reason for Sleep Study Daytime hypersomnia Sleep History Mynor Gloria is a 44-year-old man with loud snoring. His medical comorbidities include hypertension, diabetes mellitus type 2, chronic rhinitis, anxiety, GERD without esophagitis, and hyperlipidemia. He does not report having apneas at night and other people do not tell him that he has apneas at night. He does not choke or gasp at night. He does not have trouble breathing when he sleeps on his back. He does not have a morning headache. He does have a dry mouth in the morning. He does not have heartburn at night. He wakes twice most nights to urinate. He had a prior sleep test in 2003, did not have sleep apnea. The night of this home sleep study, he woke up twice during the night. He required 45 minutes to fall asleep. He woke up at 5:15 a.m. using an alarm. He does not use medication to get to sleep. He often has difficulty falling asleep and staying asleep. If he wakes during the night, he may have difficulty returning to sleep. He does not feel anxious about his sleep. He does not dream during daytime naps, does not have vivid hallucinations or dreamlike scenes on falling asleep or upon awakening. He does not feel paralyzed on waking or falling asleep. He does not have muscle weakness with strong emotion. He does not grind his teeth are clenches jaws at night. He does not have a restless feeling in his legs at night. He does not kick or jerk his legs excessively. He does not have daytime fatigue and he is not excessively sleepy during the day. He does not have an urge to fall asleep during the day. He does not have drowsy driving. Normal bedtime is 11:00 a.m., falling asleep within 30 minutes, waking spends 8 hours in bed, 6 hours sleeping. On days off his bedtime is 11:45 p.m., requires about 45 minutes to fall asleep, spends 10 hours in bed and 7 hours sleeping. His sleep on his days off is somewhat restorative. He does not take naps. Habits:??Tobacco: Never smoker Alcohol: Occasional use PMF Past Medical History Medical History Anxiety Hypercholesterolemia Morbid obesity with BMI of 40.0-44.9, adult High cholesterol HTN (hypertension) GERD (gastroesophageal reflux disease) Acute depression Diabetes Surgical History Surgical History Mass of skin of right shoulder H/O sinus surgery Family History Family History Grandparent Diabetes mellitus Hypertension Grandparent Cancer Social History Social History Smoking status: Never smoker Alcohol intake: current Substance use: never Lack of Transportation: No Lack of Food: Never True Current Housing: I Have Housing Concerned About Future Housing: No Difficulty Paying Gas/Electric Bills: No Difficulty Paying for Meds: No Currently Unemployed: No Education: High School Diploma/GED Difficulty w/ Childcare or Family Care: No Living arrangements: alone Occupation/Education: occupation Gender identity (if verbalized by the patient): Male Medications Home Medications ?Medication ?Instructions ?Recorded ?Confirmed ?Type albuterol sulfate 90 mcg/actuation 1 inhalation inhalation Q4-6H PRN 09/08/19 03/17/23 History breath activated powder rescue inhaler,sensor (Proair Digihaler) amlodipine 10 mg tablet 10 mg PO DAILY 09/08/19 03/17/23 History atorvastatin 10 mg tablet 10 mg PO DAILY 09/08/19 03/17/23 History blood sugar diagnostic (Accu-Chek #10 ea 09/08/19 03/17/23 History Guide test strips) blood-glucose meter #1 ea 09/08/19 03/17/23 History carvedilol 25 mg tablet (Coreg) 25 mg PO Q12H 09/08/19 03/17/23 History citalopram 40 mg tablet 40 mg PO DAILY 05/13/20 11/20/23 History etodolac 400 mg tablet 400 mg PO BID 09/08/19 03/17/23 History glimepiride 2 mg tablet 2 mg PO QAM 09/08/19 03/17/23 History hydrochlorothiazide 25 mg tablet 25 mg PO DAILY 09/08/19 03/17/23 History lancets (Accu-Chek Fastclix Lancet #50 ea 09/08/19 03/17/23 History Drum) losartan 100 mg tablet 100 mg PO DAILY 09/08/19 03/17/23 History metformin 500 mg tablet 500 mg PO DAILY 09/08/19 03/17/23 History metoprolol succinate 100 mg 100 mg PO DAILY 09/08/19 03/17/23 History tablet,extended release 24 hr montelukast 10 mg tablet 10 mg PO DAILY 09/08/19 03/17/23 History omeprazole 40 mg capsule,delayed 40 mg PO DAILY 09/08/19 03/17/23 History release mupirocin 2 % topical ointment 1 applic topical BID #15 grams 03/17/23 03/17/23 Rx sulfamethoxazole 800 1 tablet PO Q12H #14 tabs 03/17/23 03/17/23 Rx mg-trimethoprim 160 mg tablet Sleep Procedure A full night CPAP/BPAP Titration using the Do It Original multi-channel system recorded the standard physiologic parameters including EEG, EOG, submentalis EMG, anterior tibialis EMG, EKG, body position, nasal and oral airflow using nasal pressure sensor and thermistor.? Respiratory parameters of chest and abdominal movements were recorded with Respiratory Inductance Plethysmography belts. Oxygen saturation was recorded by pulse oximetry. Video monitoring was also performed. Sleep stages, periodic limb movements, and EEG arousals were scored in 30 second epochs according to the criteria of the AASM Scoring Manual. The Apnea-Hypopnea Index was calculated using CMS guidelines for definition of hypopnea with 4% O2 desaturations while scoring respiratory events. Sleep Architecture The total recording time was 453.1 minutes.? The total sleep time was 412.0 minutes. Sleep latency was 14.4 minutes. REM latency was 68.0 minutes. Sleep efficiency was 90.9%. The patient had 25 awakenings for an awakening index of 3.6. Wake after Sleep Onset time was 26.5 minutes. The patient spent 21.0 minutes, 5.1% of total sleep time in Stage N1. The patient spent 212.5 minutes, 51.6% in Stage N2. The patient spent 4.0 minutes, 1.0% in Stage N3. The patient spent 174.5 minutes, 42.4% in Stage REM. Respiratory Analysis The patient had 219 hypopneas, 4 obstructive apneas, 2 mixed apneas, and 5 central apneas for an overall Apnea Hypopnea Index of 33.3 events per hour. The REM Apnea Hypopnea Index was 44.4. The NREM Apnea Hypopnea Index was 25.3. The patient had a Central Apnea Hypopnea Index of 0.7. There was no evidence of Deandre-Manning Respirations. The patient was started on CPAP 7 cm H2O and titrated to BPAP 26/20 cm H2O due to hypopneas. The patient was able to fall asleep starting on CPAP 7 cm H2O. The patient was able to achieve REM sleep starting on CPAP 11 cm H2O. The lowest residual AHI the patient was able to achieve during this study was 10.4. On CPAP 20 cm H2O, the patient spent 47 minutes in NREM and 5 minutes in REM with 1 obstructive apnea, 1 central apnea, 2 mixed apneas and 5 hypopneas resulting in an AHI of 10.4. The patient had a sleep efficiency of 95.4% on this pressure setting. Arousals There were 141 total arousals for an arousal index of 20.5. There were 55 spontaneous arousals for an index of 8.0. ?There were 36 arousals due to respiratory events for an index of 5.2. There were 29 arousals due to periodic limb movements for an index of 4.2.? There were 22 arousals due to isolated limb movements for an index of 3.2. Periodic Limb Movements The patient had 56 isolated limb movements with an index of 8.2. The patient had 336 periodic limb movements with index of 48.9, which is elevated (normal < 15). Patient had a total of 392 limb movements with a total limb movement index of 57.1. Oximetry Data The patient had an average oxygen saturation of 92.3% in sleep with a minimum oxygen saturation of 75.0% and a maximum oxygen saturation of 98.0%. The patient had 232 oxygen desaturations that were 4% or greater resulting in an Oxygen Desaturation Index of 33.8.? The patient spent 32.5 minutes, 7.2% of total sleep time with an oxygen saturation below 88%. Snoring Profile Mild snoring was present intermittently in the beginning of the study. The snoring resolved once the patient was titrated to 14 cm H2O. Cardiac Profile The EKG showed normal sinus rhythm. No arrhythmias or premature beats were seen. The patient had an average pulse rate of 77.8 bpm with a minimum pulse rate of 58.0 bpm and a maximum pulse rate of 94.0 bpm. ? EEG Profile No signs of seizure activity seen. Assessment and Plan Assessment and Plan (1) Obstructive sleep apnea: Code(s): G47.33 - Obstructive sleep apnea (adult) (pediatric) Status: Acute Assessment and Plan: The patient was started on CPAP 7 cm H2O and titrated to BPAP 26/20 cm H2O due to hypopneas. The patient's sleep apnea significantly improved on CPAP 20 cm H2O. When he was switched over to BPAP, he developed more hypopneas. I recommend that the patient be prescribed CPAP 20 cm H2O, size large Resmed AirFit F20 full face mask, CPAP filters/tubing and heated humidity. This should be used with all episodes of sleep.? Compliance should be reviewed within 31-90 days of starting therapy for usage greater than 4 hours per night greater than 70% of the nights. The patient should be asked about symptoms such as?excessive daytime sleepiness, quality of sleep, decreased nocturia, increased?mental functioning such as memory, mood, and concentration. The patient had a significant amount of periodic limb movements that were seen during the study but his sleep history does not suggest Restless Legs Syndrome. An increase in leg movements can be seen when a patient is first started on PAP therapy. This is known as CPAP kick. It typically resolves within 90 days. I recommend asking the patient about leg movements during his first CPAP compliance visit. Data The data obtained during this sleep study is adequate for interpretation. Certification This sleep study has been reviewed by a board certified sleep medicine physician.
[2024-08-24 12:15] VITALS: BMI 46.2
== END 2024-07-31 06:57 | disposition home or self-care (01) ==
LOC: ANHCSM 10:00
PROVIDERS: PCP Internal Medicine; Visit Provider Internal Medicine
DX: G47.33 Obstructive sleep apnea (adult) (pediatric) (principal)
CPT/HCPCS: 95811

== ENCOUNTER 2024-08-11 17:18 | Outpatient (CLI) | payer BC, SELFPAY ==
--- OUTSIDE RECORDS SUMMARY | 2024-08-11 17:22 | XMS_ITS | Data Portability ---
Author Organization [facility] ALEJANDRAAnjali Address [address] [place] [address] Care Team Providers Care Grocery Specialist Name Role Phone DERRELL FRENCH Primary Care Provider [facility] Tellers Supervisor Assessment Encounter Date Assessment Date Assessment LastModified [...] in 4 months. Records from old clinic. [email or web address] Not available 07/13/2023 16:27:36 01/22/2024 01/22/2024 Blood work ordered diagnosis and assessment and plan discussed immunizations recommended that he get flu and COVID even consider RSV given his obesity consider bariatric surgery referral GLP 1 agents of which he is reluctant at this time states he is up-to-date on diabetic eye exam needs colon cancer screening. Cologuard ordered return to clinic 4 months. [email or web address] Not available 01/23/2024 11:46:05 05/27/2024 05/27/[address] report foot exam refer for podiatry blood work ordered sleep study ordered weight controlled discussed in detail follow up 4 months [email or web address] Not available 05/29/2024 13:35:48 Plan of Treatment Reminders Order Date Submit Date Provider Last Modified By Organization Details Last Modified Time Details Appointments ANY 15 2024 03:15P Niles French MD Not available Not available Not available Lab HbA1c (hemoglob in A1c), blood 2024 025 CORINNE Les, [address], [address], [place], [address], 07/01/2024 11:08:11 albumin/c reatinine , mass ratio, urine 2024 025 CORINNE Saldana, [address], [address], [place], [address], 07/01/2024 11:08:07 lipid panel, serum 2024 025 CORINNE Les, [address], [address], [place], [address], 07/01/2024 11:08:08 CBC w/ auto diff 2024 025 CORINNE Les, [address], [address], [place], [address], 07/01/2024 11:08:12 CMP, serum or plasma 2024 025 ALEXANDRIA Les, [address], [address], [place], [address], 07/01/2024 11:08:10 HbA1c (hemoglob in A1c), blood 2023 024 CORINNE Les, [address], [address], [place], [address], 01/24/2024 09:13:53 albumin/c reatinine , mass ratio, urine 2023 024 A[place]RIA Liana, [address], [address], [place], [address], 01/24/2024 09:13:51 noninvasi ve colorecta l cancer DNA + occult blood screening , QL, stool 2023 024 A[place]RIA [facility] (Cologuard Orders Only), [address], [address], [place], [address], 02/03/2024 22:06:46 lipid panel, serum 2023 024 CORINNE Saldana, [address], [address], [place], [address], 01/24/2024 09:13:52 CMP, serum or plasma 2023 024 CORINNE Saldana, [address], [address], [place], [address], 01/24/2024 09:13:52 CBC w/ auto diff 2023 024 CORINNE Saldana, [address], [address], [place], [address], 01/24/2024 09:13:54 urinalysi s, microscop ic 2023 024 CORINNE Saldana, [address], [address], [place], [address], 01/24/2024 09:13:53 HbA1c (hemoglob in A1c), blood 2023 024 CORINNE Saldana, [address], [address], [place], [address], 07/05/2023 08:20:16 CMP, serum or plasma 2023 024 CORINNE Saldana, [address], [address], [place], [address], 07/05/2023 08:20:15 CBC w/ auto diff 2023 024 CORINNE Saldana, [address], [address], [place], [address], 07/05/2023 08:20:17 CBC 2023 024 [email or web address], [address], [address], [place], [address], 10/02/2023 11:03:47 TSH, ultra-sen sitive, serum 2023 024 [place] [facility], [address], [address], [place], [address], 07/05/2023 08:20:16 unlisted lab - T4, free 2023 024 [place] [facility], [address], [address], [place], [address], 07/05/2023 08:20:15 T3, free, serum or plasma 2023 024 [facility], [address], [address], [place], [address], 07/05/2023 08:20:18 Referral podiatris t referral 2024 025 [email or web address] Martinez Liang Jr DPM, [address], [address], [place], [address], 08/09/2024 10:25:56 Procedures None recorded. Surgeries None recorded. Imaging home sleep study 2024 [address] [facility] ([facility]), [address], [place], [address], 06/22/2024 15:56:05 Medication Orders Ozempic 0.25 mg or 0.5 mg (2 mg/1.5 mL) subcutane ous pen injector 2023 024 [id number], [address], [place], [place], [id number], 04/29/2024 09:38:40 Patient TargetsNo targets recorded. 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 METAB OLIC PANEL (14) glucose 185 mg/dL 70-99 above high normal Not Available [facility] ([facility]) [address] [place], [address], 07/05/2023 08:20:15 07/04/19 24 07/05/2023 COMP. METAB OLIC PANEL (14) BUN 7 mg/dL 6-24 Not Available [facility] ([facility]) [address] [place], [address], 07/05/2023 08:20:15 07/04/19 24 07/05/2023 COMP. METAB OLIC PANEL (14) creatinine 0.70 mg/dL 0.76-1 .27 below low normal Not Available [facility] ([facility]) [address] [place], [address], 07/05/2023 08:20:15 07/04/19 24 07/05/2023 COMP. METAB OLIC PANEL (14) eGFR 116 mL/mi n/1.7 3 >59 Not Available [facility] ([facility]) [address], [place], [address], 07/05/2023 08:20:15 07/04/19 24 07/05/2023 COMP. METAB OLIC PANEL (14) BUN/creatini ne ratio 10 9-20 Not Available [facility] ([facility]) [address] [facility], [place], [address], 07/05/2023 08:20:15 07/04/19 24 07/05/2023 COMP. METAB OLIC PANEL (14) sodium 143 mmol/ L 134-14 4 Not Available [facility] ([facility]) [address] [facility], [place], [address], 07/05/2023 08:20:15 07/04/19 24 07/05/2023 COMP. METAB OLIC PANEL (14) potassium 4.2 mmol/ L 3.5-5. 2 Not Available [facility] ([facility]) [address] [facility], [place], [address], 07/05/2023 08:20:15 07/04/19 24 07/05/2023 COMP. METAB OLIC PANEL (14) chloride 98 mmol/ L 96-106 Not Available [facility] ([facility]) [address] [facility], [place], [address], 07/05/2023 08:20:15 07/04/19 24 07/05/2023 COMP. METAB OLIC PANEL (14) carbon dioxide, total 26 mmol/ L 20-29 Not Available [facility] ([facility]) [address] [facility], [place], [address], 07/05/2023 08:20:15 07/04/19 24 07/05/2023 COMP. METAB OLIC PANEL (14) calcium 9.6 mg/dL 8.7-10 .2 Not Available [facility] ([facility]) [address] [facility], [place], [address], 07/05/2023 08:20:15 07/04/19 24 07/05/2023 COMP. METAB OLIC PANEL (14) protein, total 7.0 g/dL 6.0-8. 5 Not Available [facility] ([facility]) [address], [place], [address], 07/05/2023 08:20:15 07/04/19 24 07/05/2023 COMP. METAB OLIC PANEL (14) albumin 4.5 g/dL 4.1-5. 1 Not Available [facility] ([facility]) [address], [place], [address], 07/05/2023 08:20:15 07/04/19 24 07/05/2023 COMP. METAB OLIC PANEL (14) globulin, total 2.5 g/dL 1.5-4. 5 Not Available [facility] ([facility]) [address] [facility], [place], [address], 07/05/2023 08:20:15 07/04/19 24 07/05/2023 COMP. METAB OLIC PANEL (14) A/G ratio 1.8 1.2-2. 2 Not Available [facility] ([facility]) [address] [facility], [place], [address], 07/05/2023 08:20:15 07/04/19 24 07/05/2023 COMP. METAB OLIC PANEL (14) bilirubin, total 0.7 mg/dL 0.0-1. 2 Not Available [facility] ([facility]) [address] [facility] [place], [address], 07/05/2023 08:20:15 07/04/19 24 07/05/2023 COMP. METAB OLIC PANEL (14) alkaline phosphatase 58 IU/L 44-121 Not Available [facility] ([facility]) [address] [facility], [place], [address], 07/05/2023 08:20:15 07/04/19 24 07/05/2023 COMP. METAB OLIC PANEL (14) AST (SGOT) 35 IU/L 0-40 Not Available [facility] ([facility]) [address] [place], [address], 07/05/2023 08:20:15 07/04/19 24 07/05/2023 COMP. METAB OLIC PANEL (14) ALT (SGPT) 65 IU/L 0-44 above high normal Not Available [facility] ([facility]) [address] [facility], [place], [address], 07/05/2023 08:20:15 07/04/19 24 07/05/2023 HEMOG LOBIN A1C hemoglobin A1C 7.5 % 4.8-5. 6 above high normal Predi abete s: 5.7 - 6.4 Diabe surjit: >6.4 Glyce marky contr ol for adult s with diabe surjit: <7.0 Not Available [facility] ([facility]) [address] [place], [address], 07/05/2023 08:20:16 07/04/19 24 07/05/2023 TSH TSH 0.678 uIU/m L 0.450- 4.500 Not Available [facility] ([facility]) [address] [place], [address], 07/05/2023 08:20:16 07/04/19 24 07/05/2023 CBC WITH DIFFE RENTI AL/PL ATELE T WBC 6.3 x10e3 /uL 3.4-10 .8 Not Available [facility] ([facility]) [address] [place], [address], 07/05/2023 08:20:17 07/04/19 24 07/05/2023 CBC WITH DIFFE RENTI AL/PL ATELE T RBC 5.94 x10e6 /uL 4.14-5 .80 above high normal Not Available [facility] ([facility]) [address] [place], [address], 07/05/2023 08:20:17 07/04/19 24 07/05/2023 CBC WITH DIFFE RENTI AL/PL ATELE T hemoglobin 16.6 g/dL 13.0-1 7.7 Not Available [facility] ([facility]) [address] [place], [address], 07/05/2023 08:20:17 07/04/19 24 07/05/2023 CBC WITH DIFFE RENTI AL/PL ATELE T hematocrit 48.6 % 37.5-5 1.0 Not Available [facility] ([facility]) [address] [place], [address], 07/05/2023 08:20:17 07/04/19 24 07/05/2023 CBC WITH DIFFE RENTI AL/PL ATELE T MCV 82 fL 79-97 Not Available [facility] ([facility]) [address] [place], [address], 07/05/2023 08:20:17 07/04/19 24 07/05/2023 CBC WITH DIFFE RENTI AL/PL ATELE T MCH 27.9 pg 26.6-3 3.0 Not Available [facility] ([facility]) [address] [place], [address], 07/05/2023 08:20:17 07/04/19 24 07/05/2023 CBC WITH DIFFE RENTI AL/PL ATELE T MCHC 34.2 g/dL 31.5-3 5.7 Not Available [facility] ([facility]) [address] [place], [address], 07/05/2023 08:20:17 07/04/19 24 07/05/2023 CBC WITH DIFFE RENTI AL/PL ATELE T RDW 12.9 % 11.6-1 5.4 Not Available [facility] ([facility]) [address] [place], [address], 07/05/2023 08:20:17 07/04/19 24 07/05/2023 CBC WITH DIFFE RENTI AL/PL ATELE T platelets 251 x10e3 /uL 150-45 0 Not Available [facility] ([facility]) [address], [place], [address], 07/05/2023 08:20:17 07/04/19 24 07/05/2023 CBC WITH DIFFE RENTI AL/PL ATELE T neutrophils 60 % notest ab. Not Available [facility] ([facility]) [address], [place], [address], 07/05/2023 08:20:17 07/04/19 24 07/05/2023 CBC WITH DIFFE RENTI AL/PL ATELE T lymphs 28 % notest ab. Not Available [facility] ([facility]) [address] [facility], [place], [address], 07/05/2023 08:20:17 07/04/19 24 07/05/2023 CBC WITH DIFFE RENTI AL/PL ATELE T monocytes 7 % notest ab. Not Available [facility] ([facility]) [address] [facility], [place], [address], 07/05/2023 08:20:17 07/04/19 24 07/05/2023 CBC WITH DIFFE RENTI AL/PL ATELE T eos 3 % notest ab. Not Available [facility] ([facility]) [address] [facility], [place], [address], 07/05/2023 08:20:17 07/04/19 24 07/05/2023 CBC WITH DIFFE RENTI AL/PL ATELE T basos 1 % notest ab. Not Available [facility] ([facility]) [address] [facility], [place], [address], 07/05/2023 08:20:17 07/04/19 24 07/05/2023 CBC WITH DIFFE RENTI AL/PL ATELE T neutrophils (absolute) 3.8 x10e3 /uL 1.4-7. 0 Not Available [facility] ([facility]) [address] [facility], [place], [address], 07/05/2023 08:20:17 07/04/19 24 07/05/2023 CBC WITH DIFFE RENTI AL/PL ATELE T lymphs (absolute) 1.7 x10e3 /uL 0.7-3. 1 Not Available [facility] ([facility]) [address] [facility], [place], [address], 07/05/2023 08:20:17 07/04/19 24 07/05/2023 CBC WITH DIFFE RENTI AL/PL ATELE T monocytes(ab solute) 0.4 x10e3 /uL 0.1-0. 9 Not Available [facility] ([facility]) [address] [facility], [place], [address], 07/05/2023 08:20:17 07/04/19 24 07/05/2023 CBC WITH DIFFE RENTI AL/PL ATELE T eos (absolute) 0.2 x10e3 /uL 0.0-0. 4 Not Available [facility] ([facility]) [address] [facility], [place], [address], 07/05/2023 08:20:17 07/04/19 24 07/05/2023 CBC WITH DIFFE RENTI AL/PL ATELE T baso (absolute) 0.1 x10e3 /uL 0.0-0. 2 Not Available [facility] ([facility]) [address] [place], [address], 07/05/2023 08:20:17 07/04/19 24 07/05/2023 CBC WITH DIFFE RENTI AL/PL ATELE T immature granulocytes 1 % notest ab. Not Available [facility] ([facility]) [address] [place], [address], 07/05/2023 08:20:17 07/04/19 24 07/05/2023 CBC WITH DIFFE RENTI AL/PL ATELE T immature grans (abs) 0.1 x10e3 /uL 0.0-0. 1 Not Available [facility] ([facility]) [address] [facility], [place], [address], 07/05/2023 08:20:17 07/04/19 24 07/05/2023 TRIIO DOTHY BRAIN E (T3), FREE triiodothyro nine (T3), free 3.1 pg/mL 2.0-4. 4 Not Available [facility] ([facility]) [address] [place], [address], 07/05/2023 08:20:18 01/23/20 24 01/24/2024 ALBUM IN/CR EATIN INE RATIO ,URIN E creatinine, urine 37.0 mg/dL notest ab. Not Available [facility] ([facility]) [address] [facility], [place], [address], 01/24/2024 09:13:51 01/23/20 24 01/24/2024 ALBUM IN/CR EATIN INE RATIO ,URIN E albumin, urine 56.9 ug/mL notest ab. Not Available [facility] ([facility]) [address] [place], [address], 01/24/2024 09:13:51 01/23/20 24 01/24/2024 ALBUM IN/CR EATIN INE RATIO ,URIN E alb/creat ratio 154 mg/g_ creat 0-29 above high normal Soraya l: 0 - 29 Moder ately incre ased: 30 - 300 Sever kurt incre ased: >300 Not Available [facility] ([facility]) [address] [place], [address], 01/24/2024 09:13:51 01/23/20 24 01/24/2024 LIPID PANEL cholesterol, total 154 mg/dL 100-19 9 Not Available [facility] ([facility]) [address] [facility] [place], [address], 01/24/2024 09:13:52 01/23/20 24 01/24/2024 LIPID PANEL triglyceride s 225 mg/dL 0-149 above high normal Not Available [facility] ([facility]) [address] [place], [address], 01/24/2024 09:13:52 01/23/20 24 01/24/2024 LIPID PANEL HDL cholesterol 36 mg/dL >39 below low normal Not Available [facility] ([facility]) [address] [place], [address], 01/24/2024 09:13:52 01/23/20 24 01/24/2024 LIPID PANEL VLDL cholesterol dinesh 38 mg/dL 5-40 Not Available [facility] ([facility]) [address] [place], [address], 01/24/2024 09:13:52 01/23/2001/24/2024 LIPID PANEL LDL chol calc ([facility]) 80 mg/dL 0-99 Not Available [facility] ([facility]) [address] [place], [address], 01/24/2024 09:13:52 01/23/2001/24/2024 COMP. METAB OLIC PANEL (14) glucose 171 mg/dL 70-99 above high normal Not Available [facility] ([facility]) [address] [place], [address], 01/24/2024 09:13:52 01/23/2001/24/2024 COMP. METAB OLIC PANEL (14) BUN 9 mg/dL 6-24 Not Available [facility] ([facility]) [address] [place], [address], 01/24/2024 09:13:52 01/23/20 24 01/24/2024 COMP. METAB OLIC PANEL (14) creatinine 0.76 mg/dL 0.76-1 .27 Not Available [facility] ([facility]) [address] [facility], [place], [address], 01/24/2024 09:13:52 01/23/20 24 01/24/2024 COMP. METAB OLIC PANEL (14) eGFR 113 mL/mi n/1.7 3 >59 Not Available [facility] ([facility]) [address] [facility], [place], [address], 01/24/2024 09:13:52 01/23/20 24 01/24/2024 COMP. METAB OLIC PANEL (14) BUN/creatini ne ratio 12 9-20 Not Available [facility] ([facility]) [address] [facility], [place], [address], 01/24/2024 09:13:52 01/23/20 24 01/24/2024 COMP. METAB OLIC PANEL (14) sodium 139 mmol/ L 134-14 4 Not Available [facility] ([facility]) [address] [place], [address], 01/24/2024 09:13:52 01/23/20 24 01/24/2024 COMP. METAB OLIC PANEL (14) potassium 3.8 mmol/ L 3.5-5. 2 Not Available [facility] ([facility]) [address] [facility], [place], [address], 01/24/2024 09:13:52 01/23/20 24 01/24/2024 COMP. METAB OLIC PANEL (14) chloride 97 mmol/ L 96-106 Not Available [facility] ([facility]) [address] [place], [address], 01/24/2024 09:13:52 01/23/20 24 01/24/2024 COMP. METAB OLIC PANEL (14) carbon dioxide, total 25 mmol/ L 20-29 Not Available [facility] ([facility]) [address] [place], [address], 01/24/2024 09:13:52 01/23/20 24 01/24/2024 COMP. METAB OLIC PANEL (14) calcium 9.1 mg/dL 8.7-10 .2 Not Available [facility] ([facility]) [address] [place], [address], 01/24/2024 09:13:52 01/23/20 24 01/24/2024 COMP. METAB OLIC PANEL (14) protein, total 6.6 g/dL 6.0-8. 5 Not Available [facility] ([facility]) [address] [place], [address], 01/24/2024 09:13:52 01/23/20 24 01/24/2024 COMP. METAB OLIC PANEL (14) albumin 4.1 g/dL 4.1-5. 1 Not Available [facility] ([facility]) [address] [place], [address], 01/24/2024 09:13:52 01/23/20 24 01/24/2024 COMP. METAB OLIC PANEL (14) globulin, total 2.5 g/dL 1.5-4. 5 Not Available [facility] ([facility]) [address] [place], [address], 01/24/2024 09:13:52 01/23/20 24 01/24/2024 COMP. METAB OLIC PANEL (14) bilirubin, total 0.9 mg/dL 0.0-1. 2 Not Available [facility] ([facility]) [address] [place], [address], 01/24/2024 09:13:52 01/23/20 24 01/24/2024 COMP. METAB OLIC PANEL (14) alkaline phosphatase 48 IU/L 44-121 Not Available [facility] ([facility]) [address] [facility], [place], [address], 01/24/2024 09:13:52 01/23/20 24 01/24/2024 COMP. METAB OLIC PANEL (14) AST (SGOT) 34 IU/L 0-40 Not Available [facility] ([facility]) [address], [place], [address], 01/24/2024 09:13:52 01/23/20 24 01/24/2024 COMP. METAB OLIC PANEL (14) ALT (SGPT) 62 IU/L 0-44 above high normal Not Available [facility] ([facility]) [address], [place], [address], 01/24/2024 09:13:52 01/23/20 24 01/24/2024 MICRO SCOPI C EXAMI NATIO N WBC NONE SEEN /hpf 0-5 Not Available [facility] ([facility]) [address] [facility], [place], [address], 01/24/2024 09:13:53 01/23/20 24 01/24/2024 MICRO SCOPI C EXAMI NATIO N RBC NONE SEEN /hpf 0-2 Not Available [facility] ([facility]) [address] [facility], [place], [address], 01/24/2024 09:13:53 01/23/20 24 01/24/2024 MICRO SCOPI C EXAMI NATIO N epithelial cells (non renal) NONE SEEN /hpf 0-10 Not Available [facility] ([facility]) [address] [facility], [place], [address], 01/24/2024 09:13:53 01/23/2001/24/2024 MICRO SCOPI C EXAMI NATIO N casts NONE SEEN /lpf nonese en Not Available [facility] ([facility]) [address] [facility], [place], [address], 01/24/2024 09:13:53 01/23/2001/24/2024 MICRO SCOPI C EXAMI NATIO N bacteria NONE SEEN nonese en/few Not Available [facility] ([facility]) [address] [facility], [place], [address], 01/24/2024 09:13:53 01/23/20 24 01/24/2024 HEMOG LOBIN A1C hemoglobin A1C 7.9 % 4.8-5. 6 above high normal Predi abete s: 5.7 - 6.4 Diabe surjit: >6.4 Glyce marky contr ol for adult s with diabe surjit: <7.0 Not Available [facility] ([facility]) [address] [facility], [place], [address], 01/24/2024 09:13:53 01/23/20 24 01/24/2024 CBC WITH DIFFE RENTI AL/PL ATELE T WBC 6.7 x10e3 /uL 3.4-10 .8 Not Available [facility] ([facility]) [address] [facility], [place], [address], 01/24/2024 09:13:54 01/23/20 24 01/24/2024 CBC WITH DIFFE RENTI AL/PL ATELE T RBC 5.87 x10e6 /uL 4.14-5 .80 above high normal Not Available [facility] ([facility]) [address] [place], [address], 01/24/2024 09:13:54 01/23/20 24 01/24/2024 CBC WITH DIFFE RENTI AL/PL ATELE T hemoglobin 15.9 g/dL 13.0-1 7.7 Not Available [facility] ([facility]) [address] [place], [address], 01/24/2024 09:13:54 01/23/20 24 01/24/2024 CBC WITH DIFFE RENTI AL/PL ATELE T hematocrit 49.1 % 37.5-5 1.0 Not Available [facility] ([facility]) [address] [facility], [place], [address], 01/24/2024 09:13:54 01/23/2001/24/2024 CBC WITH DIFFE RENTI AL/PL ATELE T MCV 84 fL 79-97 Not Available [facility] ([facility]) [address] [facility], [place], [address], 01/24/2024 09:13:54 01/23/2001/24/2024 CBC WITH DIFFE RENTI AL/PL ATELE T MCH 27.1 pg 26.6-3 3.0 Not Available [facility] ([facility]) [address] [facility], [place], [address], 01/24/2024 09:13:54 01/23/20 24 01/24/2024 CBC WITH DIFFE RENTI AL/PL ATELE T MCHC 32.4 g/dL 31.5-3 5.7 Not Available [facility] ([facility]) [address] [facility], [place], [address], 01/24/2024 09:13:54 01/23/2001/24/2024 CBC WITH DIFFE RENTI AL/PL ATELE T RDW 12.5 % 11.6-1 5.4 Not Available [facility] ([facility]) [address] [facility], [place], [address], 01/24/2024 09:13:54 01/23/2001/24/2024 CBC WITH DIFFE RENTI AL/PL ATELE T platelets 255 x10e3 /uL 150-45 0 Not Available [facility] ([facility]) [address] [place], [address], 01/24/2024 09:13:54 01/23/20 24 01/24/2024 CBC WITH DIFFE RENTI AL/PL ATELE T neutrophils 57 % notest ab. Not Available [facility] ([facility]) [address] [facility], [place], [address], 01/24/2024 09:13:54 01/23/20 24 01/24/2024 CBC WITH DIFFE RENTI AL/PL ATELE T lymphs 29 % notest ab. Not Available [facility] ([facility]) [address] [facility], [place], [address], 01/24/2024 09:13:54 01/23/20 24 01/24/2024 CBC WITH DIFFE RENTI AL/PL ATELE T monocytes 8 % notest ab. Not Available [facility] ([facility]) [address] [facility], [place], [address], 01/24/2024 09:13:54 01/23/20 24 01/24/2024 CBC WITH DIFFE RENTI AL/PL ATELE T eos 4 % notest ab. Not Available [facility] ([facility]) [address] [facility], [place], [address], 01/24/2024 09:13:54 01/23/20 24 01/24/2024 CBC WITH DIFFE RENTI AL/PL ATELE T basos 1 % notest ab. Not Available [facility] ([facility]) [address] [facility], [place], [address], 01/24/2024 09:13:54 01/23/20 24 01/24/2024 CBC WITH DIFFE RENTI AL/PL ATELE T neutrophils (absolute) 3.9 x10e3 /uL 1.4-7. 0 Not Available [facility] ([facility]) [address] [facility], [place], [address], 01/24/2024 09:13:54 01/23/20 24 01/24/2024 CBC WITH DIFFE RENTI AL/PL ATELE T lymphs (absolute) 2.0 x10e3 /uL 0.7-3. 1 Not Available [facility] ([facility]) [address] [facility], [place], [address], 01/24/2024 09:13:54 01/23/20 24 01/24/2024 CBC WITH DIFFE RENTI AL/PL ATELE T monocytes(ab solute) 0.5 x10e3 /uL 0.1-0. 9 Not Available [facility] ([facility]) [address] [facility], [place], [address], 01/24/2024 09:13:54 01/23/20 24 01/24/2024 CBC WITH DIFFE RENTI AL/PL ATELE T eos (absolute) 0.2 x10e3 /uL 0.0-0. 4 Not Available [facility] ([facility]) [address] [facility], [place], [address], 01/24/2024 09:13:54 01/23/20 24 01/24/2024 CBC WITH DIFFE RENTI AL/PL ATELE T baso (absolute) 0.1 x10e3 /uL 0.0-0. 2 Not Available [facility] ([facility]) [address] [facility], [place], [address], 01/24/2024 09:13:54 01/23/20 24 01/24/2024 CBC WITH DIFFE RENTI AL/PL ATELE T immature granulocytes 1 % notest ab. Not Available [facility] ([facility]) [address] [facility], [place], [address], 01/24/2024 09:13:54 01/23/20 24 01/24/2024 CBC WITH DIFFE RENTI AL/PL ATELE T immature grans (abs) 0.0 x10e3 /uL 0.0-0. 1 Not Available [facility] ([facility]) [address] [facility], [place], [address], 01/24/2024 09:13:54 01/27/20 24 01/27/2024 COLOG UARD cologuard result reportable No Result Obtain ed n/a There was insuf ficie nt stool DNA detec nena to produ ce a valid Colog uard resul t. The patie nt will be conta cted to initi ate a new sampl e colle ction . Not Available [facility] (Cologuard Orders Only) [address], [place], [address], 02/03/2024 22:06:46 02/11/20 24 02/11/2024 COLOG UARD [...] of 10,00 0 indiv idual s at [place] risk for color ectal cance r [...] asymp tomat ic indiv idual s at [place] risk for color ectal cance r. [...] 112:1 016-1 030. TEST DESCR IPTIO N: [place] site algor ithmi c ailin sis of [...] years or older , who are at [facility] for color ectal cance r (CRC) . Colog uard has been appro saud for use by the [place] FDA. The perfo rmanc e of Colog uard was estab lishe d in a cross secti onal study of [facility] adult s aged 50-84 . Colog uard perfo rmanc e in patie nts ages 45 to 49 years was estim ated by sub-g roup ailin sis of near- age group s. Colon oscop ies perfo rmed for a posit daniel resul t may find as the most clini harish signi carmen baer n: color ectal cance r [4.0% ], advan btehel adeno ma (incl uding sessi le dwight nena polyp s great er than or equal to 1cm diame ter) [20%] or non- advan bethel adeno ma [31%] ; or no color ectal neopl nickolas [45%] . These estim ates are deriv ed from a prosp ectiv e cross -sect ional scree sandie study of 0 indiv [facility]ual s at [facility] risk for color ectal cance r [...] at www.c eligio daltond.c om. Not Available [facility] (Cologuard Orders Only) [address], [place], [address], 02/18/2024 21:27:01 07/01/19 25 07/01/2024 ALBUM IN/CR EATIN INE RATIO ,URIN E creatinine, urine 64.8 mg/dL notest ab. Not Available [facility] ([facility]) [address] [facility], [place], [address], 07/01/2024 11:08:07 07/01/19 25 07/01/2024 ALBUM IN/CR EATIN INE RATIO ,URIN E albumin, urine 101.4 ug/mL notest ab. Not Available [facility] ([facility]) [address] [place], [address], 07/01/2024 11:08:07 07/01/19 25 07/01/2024 ALBUM IN/CR EATIN INE RATIO ,URIN E alb/creat ratio 156 mg/g_ creat 0-29 above high normal Soraya l: 0 - 29 Moder ately incre ased: 30 - 300 Sever kurt incre ased: >300 Not Available [facility] ([facility]) [address] [place], [address], 07/01/2024 11:08:07 07/01/19 25 07/01/2024 LIPID PANEL cholesterol, total 162 mg/dL 100-19 9 Not Available [facility] ([facility]) [address] [place], [address], 07/01/2024 11:08:08 07/01/19 25 07/01/2024 LIPID PANEL triglyceride s 160 mg/dL 0-149 above high normal Not Available [facility] ([facility]) [address] [place], [address], 07/01/2024 11:08:08 07/01/19 25 07/01/2024 LIPID PANEL HDL cholesterol 40 mg/dL >39 Not Available [facility] ([facility]) [address] [place], [address], 07/01/2024 11:08:08 07/01/19 25 07/01/2024 LIPID PANEL VLDL cholesterol dinesh 28 mg/dL 5-40 Not Available [facility] ([facility]) [address] [place], [address], 07/01/2024 11:08:08 07/01/19 25 07/01/2024 LIPID PANEL LDL chol calc ([facility]) 94 mg/dL 0-99 Not Available [facility] ([facility]) [address] [place], [address], 07/01/2024 11:08:08 07/01/19 25 07/01/2024 COMP. METAB OLIC PANEL (14) glucose 164 mg/dL 70-99 above high normal Not Available [facility] ([facility]) [address] [place], [address], 07/01/2024 11:08:10 07/01/19 25 07/01/2024 COMP. METAB OLIC PANEL (14) BUN 10 mg/dL 6-24 Not Available [facility] ([facility]) [address] [place], [address], 07/01/2024 11:08:10 07/01/19 25 07/01/2024 COMP. METAB OLIC PANEL (14) creatinine 0.80 mg/dL 0.76-1 .27 Not Available [facility] ([facility]) [address] [place], [address], 07/01/2024 11:08:10 07/01/19 25 07/01/2024 COMP. METAB OLIC PANEL (14) eGFR 111 mL/mi n/1.7 3 >59 Not Available [facility] ([facility]) [address] [place], [address], 07/01/2024 11:08:10 07/01/19 25 07/01/2024 COMP. METAB OLIC PANEL (14) BUN/creatini ne ratio 13 9-20 Not Available [facility] ([facility]) [address] [place], [address], 07/01/2024 11:08:10 07/01/19 25 07/01/2024 COMP. METAB OLIC PANEL (14) sodium 141 mmol/ L 134-14 4 Not Available [facility] ([facility]) [address] [place], [address], 07/01/2024 11:08:10 07/01/19 25 07/01/2024 COMP. METAB OLIC PANEL (14) potassium 4.1 mmol/ L 3.5-5. 2 Not Available [facility] ([facility]) [address] [place], [address], 07/01/2024 11:08:10 07/01/19 25 07/01/2024 COMP. METAB OLIC PANEL (14) chloride 97 mmol/ L 96-106 Not Available [facility] ([facility]) [address] [place], [address], 07/01/2024 11:08:10 07/01/19 25 07/01/2024 COMP. METAB OLIC PANEL (14) carbon dioxide, total 28 mmol/ L 20-29 Not Available [facility] ([facility]) [address] [place], [address], 07/01/2024 11:08:10 07/01/19 25 07/01/2024 COMP. METAB OLIC PANEL (14) calcium 9.7 mg/dL 8.7-10 .2 Not Available [facility] ([facility]) [address] [place], [address], 07/01/2024 11:08:10 07/01/19 25 07/01/2024 COMP. METAB OLIC PANEL (14) protein, total 7.0 g/dL 6.0-8. 5 Not Available [facility] ([facility] [address] [facility] [place], [address], 07/01/2024 11:08:10 07/01/19 25 07/01/2024 COMP. METAB OLIC PANEL (14) albumin 4.6 g/dL 4.1-5. 1 Not Available [facility] ([facility] [address] [facility] [place], [address], 07/01/2024 11:08:10 07/01/19 25 07/01/2024 COMP. METAB OLIC PANEL (14) globulin, total 2.4 g/dL 1.5-4. 5 Not Available [facility] ([facility]) [address] [facility] [place], [address], 07/01/2024 11:08:10 07/01/19 25 07/01/2024 COMP. METAB OLIC PANEL (14) bilirubin, total 0.8 mg/dL 0.0-1. 2 Not Available [facility] ([facility]) [address] [facility] [place], [address], 07/01/2024 11:08:10 07/01/19 25 07/01/2024 COMP. METAB OLIC PANEL (14) alkaline phosphatase 54 IU/L 44-121 Not Available [facility] ([facility]) [address] [facility] [place], [address], 07/01/2024 11:08:10 07/01/19 25 07/01/2024 COMP. METAB OLIC PANEL (14) AST (SGOT) 51 IU/L 0-40 above high normal Not Available [facility] ([facility]) [address] [facility], [place], [address], 07/01/2024 11:08:10 07/01/19 25 07/01/2024 COMP. METAB OLIC PANEL (14) ALT (SGPT) 89 IU/L 0-44 above high normal Not Available [facility] ([facility]) [address] [facility], [place], [address], 07/01/2024 11:08:10 07/01/19 25 07/01/2024 HEMOG LOBIN A1C hemoglobin A1C 7.3 % 4.8-5. 6 above high normal Predi abete s: 5.7 - 6.4 Diabe surjit: >6.4 Glyce marky contr ol for adult s with diabe surjit: <7.0 Not Available [facility] ([facility]) [address] [facility], [place], [address], 07/01/2024 11:08:11 07/01/19 25 07/01/2024 CBC WITH DIFFE RENTI AL/PL ATELE T WBC 6.5 x10e3 /uL 3.4-10 .8 Not Available [facility] ([facility]) [address] [facility], [place], [address], 07/01/2024 11:08:12 07/01/19 25 07/01/2024 CBC WITH DIFFE RENTI AL/PL ATELE T RBC 5.93 x10e6 /uL 4.14-5 .80 above high normal Not Available [facility] ([facility]) [address] [facility], [place], [address], 07/01/2024 11:08:12 07/01/19 25 07/01/2024 CBC WITH DIFFE RENTI AL/PL ATELE T hemoglobin 16.2 g/dL 13.0-1 7.7 Not Available [facility] ([facility]) [address] [place], [address], 07/01/2024 11:08:12 07/01/19 25 07/01/2024 CBC WITH DIFFE RENTI AL/PL ATELE T hematocrit 49.5 % 37.5-5 1.0 Not Available [facility] ([facility]) [address] [place], [address], 07/01/2024 11:08:12 07/01/19 25 07/01/2024 CBC WITH DIFFE RENTI AL/PL ATELE T MCV 84 fL 79-97 Not Available [facility] ([facility]) [address] [place], [address], 07/01/2024 11:08:12 07/01/19 25 07/01/2024 CBC WITH DIFFE RENTI AL/PL ATELE T MCH 27.3 pg 26.6-3 3.0 Not Available [facility] ([facility]) [address] [place], [address], 07/01/2024 11:08:12 07/01/19 25 07/01/2024 CBC WITH DIFFE RENTI AL/PL ATELE T MCHC 32.7 g/dL 31.5-3 5.7 Not Available [facility] ([facility]) [address] [facility], [place], [address], 07/01/2024 11:08:12 07/01/19 25 07/01/2024 CBC WITH DIFFE RENTI AL/PL ATELE T RDW 12.7 % 11.6-1 5.4 Not Available [facility] ([facility]) [address] [facility], [place], [address], 07/01/2024 11:08:12 07/01/19 25 07/01/2024 CBC WITH DIFFE RENTI AL/PL ATELE T platelets 264 x10e3 /uL 150-45 0 Not Available [facility] ([facility]) [address] [facility], [place], [address], 07/01/2024 11:08:12 07/01/19 25 07/01/2024 CBC WITH DIFFE RENTI AL/PL ATELE T neutrophils 58 % notest ab. Not Available [facility] ([facility]) [address] [place], [address], 07/01/2024 11:08:12 07/01/19 25 07/01/2024 CBC WITH DIFFE RENTI AL/PL ATELE T lymphs 27 % notest ab. Not Available [facility] ([facility]) [address] [place], [address], 07/01/2024 11:08:12 07/01/19 25 07/01/2024 CBC WITH DIFFE RENTI AL/PL ATELE T monocytes 9 % notest ab. Not Available [facility] ([facility]) [address] [place], [address], 07/01/2024 11:08:12 07/01/19 25 07/01/2024 CBC WITH DIFFE RENTI AL/PL ATELE T eos 4 % notest ab. Not Available [facility] ([facility]) [address] [facility], [place], [address], 07/01/2024 11:08:12 07/01/19 25 07/01/2024 CBC WITH DIFFE RENTI AL/PL ATELE T basos 1 % notest ab. Not Available [facility] ([facility]) [address] [facility], [place], [address], 07/01/2024 11:08:12 07/01/19 25 07/01/2024 CBC WITH DIFFE RENTI AL/PL ATELE T neutrophils (absolute) 3.8 x10e3 /uL 1.4-7. 0 Not Available [facility] ([facility]) [address] [facility], [place], [address], 07/01/2024 11:08:12 07/01/19 25 07/01/2024 CBC WITH DIFFE RENTI AL/PL ATELE T lymphs (absolute) 1.7 x10e3 /uL 0.7-3. 1 Not Available [facility] ([facility]) [address] [facility], [place], [address], 07/01/2024 11:08:12 07/01/19 25 07/01/2024 CBC WITH DIFFE RENTI AL/PL ATELE T monocytes(ab solute) 0.6 x10e3 /uL 0.1-0. 9 Not Available [facility] ([facility]) [address] [facility], [place], [address], 07/01/2024 11:08:12 07/01/19 25 07/01/2024 CBC WITH DIFFE RENTI AL/PL ATELE T eos (absolute) 0.3 x10e3 /uL 0.0-0. 4 Not Available [facility] ([facility]) [address] [facility], [place], [address], 07/01/2024 11:08:12 07/01/19 25 07/01/2024 CBC WITH DIFFE RENTI AL/PL ATELE T baso (absolute) 0.1 x10e3 /uL 0.0-0. 2 Not Available [facility] ([facility]) [address] [facility], [place], [address], 07/01/2024 11:08:12 07/01/19 25 07/01/2024 CBC WITH DIFFE RENTI AL/PL ATELE T immature granulocytes 1 % notest ab. Not Available [facility] ([facility]) [address] [facility], [place], [address], 07/01/2024 11:08:12 07/01/19 25 07/01/2024 CBC WITH DIFFE RENTI AL/PL ATELE T immature grans (abs) 0.1 x10e3 /uL 0.0-0. 1 Not Available [facility] ([facility]) [address] [facility], [place], [address], 07/01/2024 11:08:12 06/21/19 25 06/16/2024 home sleep study No observ ation record ed. [facility] [address] [place], [address], 07/07/2024 12:51:44 Result Notes None recorded. Problems Name Problem SNOMED Code Status Onset Date Resolution Date Notes Provider Name and Address Organization Details Recorded Time Essential hypertension 56272878 Active 2023 Derrell French MD Attn: Ashli lares,[address] [place], [address], [facility] - [facility] 4 16:25:57 Type 2 diabetes mellitus 50390348 Active 2023 Derrell French MD Attn: Ashli lares,[address] [place], [address], [place] - [facility] 4 16:25:59 Gastroesophage al reflux disease without esophagitis 231750579 Active 2023 Derrell French MD Attn: Ashli lares,[address] [place], [address], [place] - [facility] 4 16:27:56 Anxiety 43493906 Active 2023 Derrell French MD Attn: Ashli lares,[address] [facility], [place], [address], [place] - [facility] 4 16:27:57 Chronic rhinitis 79668007 Active 2023 Derrell French MD Attn: Ashli lares,[address] [facility], [place], [address], [place] - [facility] 4 16:28:00 Obesity 335885303 Active 2023 Derrell French MD Attn: Ashli lares,[address] [facility], [place], [address], [place] - [facility] 4 16:28:01 Hyperlipidemia 06722255 Active 2023 Derrell French MD Attn: Ashli lares,[address] [facility], [place], [address], [place] - [facility] 4 16:28:03 Liver function tests outside reference range 616296357 Active 2024 Arash Vazquez MA null, [place] - [facility] 5 11:16:01 Problem Notes None recorded. Procedures Surgical History Date Name Laterality Status Provider Name and Address Organization Details Recorded Time Eye Surgery completed Daniel Romero MA [facility] 07/03/2023 16:48:54 Nasal sinus therapy completed Daniel Romero MA [facility] 07/03/2023 16:49:58 Imaging Results Imaging Date Name Status LastModified by [facility] Details LastModified Time 06/16/2024 home sleep study completed [facility] [address] [place], [address], 07/07/2024 12:51:44 Procedure Notes None recorded. Medical [...] UNDER THE SKIN ONE DAY A WEEK 2024 active Not Available Not Available Not Avai lable Ozempic 0.25 mg or 0.5 mg (2 [...] Address Organization Details Last Updated DateTime 4 910670. 11 g 45.3 kg/m2 187.96 cm 97 % 97 % 83 /min 162 mm[Hg] 90 mm[Hg] Daniel Romero MA [facility] 4 16:53:56 Date Recorded Body height Body mass index (BMI) Body weight Heart rate Oxygen saturation Oxygen saturation in Arterial blood by Pulse oximetry Systolic blood pressure Diastolic blood pressure Provider Name and Address Organization Details Last Updated DateTime 4 187.96 cm 47.4 kg/m2 882923. 58 g 90 /min 97 % 97 % 138 mm[Hg] 72 mm[Hg] Samantha Garibay MA [facility] 4 16:53:26 Date Recorded Body height Body mass index (BMI) Body weight Heart rate Oxygen saturation Oxygen saturation in Arterial blood by Pulse oximetry Systolic blood pressure Diastolic blood pressure Provider Name and Address Organization Details Last Updated DateTime 5 187.96 cm 46 kg/m2 917370. 43 g 91 /min 95 % 95 % 122 mm[Hg] 84 mm[Hg] Lexy Day MA [facility] 5 16:24:48 Social History Question Answer Notes LastModified by Organizat ion Details LastModified Time Tobacco Smoking Status Never Smoker Daniel Romero MA [facility], [facility] 07/03/2023 16:47:27 Do You Have An Advance [...] Or The Highest Degree You Have Received? [id number] Information not available 07/03/2023 What Is Your [...] Anxious, Or Unable To Sleep At Night)? [id number] Information not available 07/03/2023 Do You Use [...] Response Coronary Artery Disease N Other N High Blood Pressure Y Atrial Fibrillation N Kidney or Bladder Problems N Thyroid Problems N GI Problems N Depression N COPD N Blood Clots N Skin Problems N Anemia N Heart Attack (ME) N Anxiety Disorder Y Diabetes Y Muscle, Joint, or Bone Problems N Seizures/Epilepsy N Acid Reflux (GERD) N Cancer N Stroke N Asthma N Allergies N High Cholesterol Y Hepatitis N Liver Disease N Headaches N Heart Failure N Osteoporosis N Past Encounters Encounter ID Performer Location Encounter Start Date Encounter Closed Date Diagnosis/Indication Diagnosis SNOMED-CT Code Diagnosis ICD10 Code Diagnosis Note [id number] Derrell French MD [facility] (Adult Med) [address] [place] [address] 07/03/2023 16:28:51 07/03/2023 17:29:29 Essential hypertension 31701568 I10 Type 2 kamran betes mellitus 42088397 E11.9 Hyperlipidemia 78181429 E78.5 Obesity 841430197 E66.9 Chronic rhinitis 4001828 6 J31.0 Anxiety 34480515 F41.9 Gastroesop hageal reflux disease without esophagitis 212566259 K21.9 [id number] Derrell French MD [facility] [place] [address] [place] [address] 01/22/2024 16:12:33 01/22/2024 17:26:24 Morbid obesity 197973478 E66.01 Essential hypertension 92013985 I10 Screening for malignant neoplasm of colon 932015400 Z12.11 Type 2 kamran betes mellitus 59695134 E11.9 Chronic rhinitis 3341630 6 J31.0 Anxiety 82525052 F41.9 Gastroesop hageal reflux disease without esophagitis 968411419 K21.9 Hyperlipidemia 01687507 E78.5 Obesity 654125639 E66.9 [id number] Derrell French MD [facility] [place] [place] [address] [place] [address] 05/27/2024 16:07:53 05/27/2024 17:50:51 Body mass index 40+ - severely obese 188777945 Z68.42 Morbid obesity 841028120 E66.01 Essential hypertension 34841914 I10 Type 2 kamran betes mellitus 95516230 E11.9 Hyperlipidemia 43743133 E78.5 Sleep disorder 94671817 G47.9 Chronic rhinitis 5041269 6 J31.0 Anxiety 90661944 F41.9 Obesity 763415942 E66.9 Gastroesop hageal reflux disease without esophagitis 371035223 K21.9 Health Concerns Section Related Observation LastModified by Organization Detai ls LastModified Time None Recorded Concern Status LastModified by Organization Details LastModified Time None Recorded Advance Directives Directive N: Payers Encounter Date Sequence Insurance Name Policy Number Policy Albright Covered Member ID Albright Member ID Guarantor Name 07/03/2023 1 [place] [id number] Mynor Gloria [id number] Mynor Gloria 01/22/2024 1 [place] [id number] Mynor Gloria [id number] Mynor Gloria 05/27/2024 1 [place] [id number] Mynor Gloria [id number] Mynor Gloria Notes Date Note Type Note Provider Name and Address Organization Details Recorded Time 07/03/2023 text/html Hypertension no headache no dizziness blood pressure appropriate. Atorvastatin no polydipsia does not take his like he should anxiety citalopram be doing well. Rhinitis montelukast seems to be doing fine Derrell French MD Attn: [address] [place], [address], [facility] 07/13/2023 16:28:38 01/22/2024 text/html Hypertension no headache no dizziness blood pressure appropriate. Atorvastatin no polydipsia does not take his like he should anxiety citalopram be doing well. Rhinitis montelukast seems to be doing fine. Derrell French MD Attn: [address] , [place], [address], [facility] [place] 01/23/2024 11:46:30 05/27/2024 text/html follow [...] side effects. GERD no nausea or vomiting Drerell French MD Attn: [employer],[address], [place], [address], [facility] [place] 05/29/2024 13:36:06
--- OUTSIDE RECORDS SUMMARY | 2024-08-11 17:22 | XMS_ITS | Data Portability ---
Author Organization [place] - [facility], Main Office Address [address] [place] [address] Assessment Encounter Date Assessment Date Assessment LastModified by Organization Details LastModified Time 07/08/2022 07/08/2022 Consider switching injectable for diabetes he is not losing any weight on current strategy blood work ordered targets for blood pressure ideal body weight LDL and A1c discussed screenings and immunizations discussed follow-up 4 months. Not available 07/14/2022 13:11:44 02/10/2023 02/10/2023 Plastic surgery doxycycline blood work weight loss again discussed his diagnosis on chronic medical problems have been discussed follow-up 6 months but he will call me back if his cyst does not get completely resolved [email or web address] Not available 02/10/2023 17:52:34 Plan of Treatment Reminders Order Date Submit Date Provider Last Modified By Organization Details Last Modified Time Details Appointments None recorded. Lab glycohemog lobin, total, blood 2022 023 [facility] (Lab), [address] [place], [address], 21:02:46 CMP, serum or plasma 2022 023 [facility] (Lab), [address] [place], [address], 18:19:08 lipid panel, serum 2022 023 [facility] (Lab), [address] [place], [address], 10/16/202 3 18:19:18 CBC w/ auto diff 2022 023 [facility] (Lab), [address] [place], [address], 3 18:04:16 CBC w/ auto diff 2022 023 [facility] (Lab), [address] [place], [address], 3 17:59:10 lipid panel, serum 2022 023 [facility] (Lab), [address] [place], [address], 3 19:26:47 CMP, serum or plasma 2022 023 [facility] (Lab), [address] [place], [address], 3 19:26:53 glycohemog lobin, total, blood 2022 023 [facility] (Lab), [address] [place], [address], 3 19:59:16 albumin/cr eatinine, mass ratio, urine 2022 023 [facility] (Lab), [address] [place], [address], 3 16:20:55 Referral plastic surgeon referral 2022 023 CORINNE Fitzgerald MD, [address], [place], [address], 3 11:49:03 Procedures None recorded. Surgeries None [...] 2016, 39(Weldon ppl.1 ):s13 -s22 Not Available [facility] (Lab) [address] [place], [address], 02/22/2021 21:55:38 02/23/20 21 02/22/2021 LIPID PANEL cholesterol 170 mg/dL 140-19 9 NIH MAYRA NSUS RECOM MENDA TION FOR LEV STERO L: ADULT CHILD LOW RISK: <200 <170 BORDE RLINE : <200- 239 ----- HIGH RISK: >240 >200 Not Available [facility] (Lab) [address] [place], [address], 02/22/2021 18:10:38 02/23/20 21 02/22/2021 LIPID PANEL triglyceride s 200 mg/dL 0-150 high NIH MAYRA NSUS REPOR T RECOM MENDA TION FOR TRIGL YCERI BETTY: ADULT CHILD LOW RISK: <150 ----- BODER LINE: 150-1 99 ----- HIGH RISK: >200 ----- Not Available [facility] (Lab) [address] [place], [address], 02/22/2021 18:10:38 02/23/20 21 02/22/2021 LIPID PANEL HDL cholesterol 42 mg/dL 40- Not Available [facility] (Lab) [address] [place], [address], 02/22/2021 18:10:38 02/23/20 21 02/22/2021 LIPID PANEL [...] WILL NOT BE REPOR BALJEET. Not Available [facility] (Lab) [address] [place], [address], 02/22/2021 18:10:38 02/23/20 21 02/22/2021 COMPR EHENS DANIEL METAB OLIC PANEL glucose 149 mg/dL 70-99 high Not Available [facility] (Lab) [address] [place], [address], 02/22/2021 18:10:36 02/23/20 21 02/22/2021 COMPR EHENS DANIEL METAB OLIC PANEL sodium 139 mmol/ L 137-14 5 Not Available [facility] (Lab) [address] [place], [address], 02/22/2021 18:10:36 02/23/20 21 02/22/2021 COMPR EHENS DANIEL METAB OLIC PANEL potassium 4.1 mmol/ L 3.5-5. 1 Not Available [facility] (Lab) [address] [place], [address], 02/22/2021 18:10:36 02/23/20 21 02/22/2021 COMPR EHENS DANIEL METAB OLIC PANEL chloride 99 mmol/ L 98-107 Not Available [facility] (Lab) [address] [place], [address], 02/22/2021 18:10:36 02/23/20 21 02/22/2021 COMPR EHENS DANIEL METAB OLIC PANEL carbon dioxide 27 mmol/ L 22-30 Not Available [facility] (Lab) [address] [place], [address], 02/22/2021 18:10:36 02/23/20 21 02/22/2021 COMPR EHENS DANIEL METAB OLIC PANEL agap 17.1 mmol/ L 14-22 Not Available [facility] (Lab) [address] [place], [address], 02/22/2021 18:10:36 02/23/20 21 02/22/2021 COMPR EHENS DANIEL METAB OLIC PANEL BUN 14 mg/dL 8-19 Not Available [facility] (Lab) [address] [place], [address], 02/22/2021 18:10:36 02/23/20 21 02/22/2021 COMPR EHENS DANIEL METAB OLIC PANEL creatinine 0.77 mg/dL 0.66-1 .25 Not Available [facility] (Lab) [address] [place], [address], 02/22/2021 18:10:36 02/23/20 21 02/22/2021 COMPR EHENS DANIEL METAB OLIC PANEL GFR >60 Refer ence Range : [facility] ge GFR Healt hy Adult : >60 [...] lator can be locat ed on the [facility] websi te: [email or web address] :[email or web address] [email or web address] ofess ional s/kdo qi/gf r_cal culat or Not Available [facility] (Lab) [address] [place], [address], 02/22/2021 18:10:36 02/23/20 21 02/22/2021 COMPR EHENS DANIEL METAB OLIC PANEL alkaline phosphatase 45 U/L 38-126 Not Available [facility] (Lab) [address] [place], [address], 02/22/2021 18:10:36 02/23/20 21 02/22/2021 COMPR EHENS DANIEL METAB OLIC PANEL alanine aminotransfe rase 59 U/L 0-50 high Not Available [facility] (Lab) [address] [place], [address], 02/22/2021 18:10:36 02/23/20 21 02/22/2021 COMPR EHENS DANIEL METAB OLIC PANEL aspartate aminotransfe rase 37 U/L 15-46 Not Available [facility] (Lab) [address] [place], [address], 02/22/2021 18:10:36 02/23/20 21 02/22/2021 COMPR EHENS DANIEL METAB OLIC PANEL bilirubin, total 1.20 mg/dL 0.20-1 .30 Not Available [facility] (Lab) [address] [place], [address], 02/22/2021 18:10:36 02/23/20 21 02/22/2021 COMPR EHENS DANIEL METAB OLIC PANEL calcium 9.8 mg/dL 8.4-10 .2 Not Available [facility] (Lab) [address] [place], [address], 02/22/2021 18:10:36 02/23/20 21 02/22/2021 COMPR EHENS DANIEL METAB OLIC PANEL total protein 7.6 g/dL 6.3-8. 2 Not Available [facility] (Lab) [address] [place], [address], 02/22/2021 18:10:36 02/23/20 21 02/22/2021 COMPR EHENS DANIEL METAB OLIC PANEL albumin 4.6 g/dL 3.4-5. 0 Not Available [facility] (Lab) [address] [place], [address], 02/22/2021 18:10:36 02/23/20 21 02/22/2021 COMPR EHENS DANIEL METAB OLIC PANEL globulin 3.0 g/dL 2.6-4. 2 Not Available [facility] (Lab) [address] [place], [address], 02/22/2021 18:10:36 02/23/20 21 02/22/2021 COMPR EHENS DANIEL METAB OLIC PANEL A/G ratio 1.5 ratio 1.0-2. 0 Not Available [facility] (Lab) [address] [place], [address], 02/22/2021 18:10:36 02/24/20 21 02/23/2021 MICRO ALBUM N RNDM W/CRE AT RATIO ur creat 99.12 mg/dL REFER ENCE RANGE NOT ESTAB LISHE D FOR RANDO M URINE CREAT ININE Not Available [facility] (Lab) [address] [place], [address], 02/23/2021 12:20:39 02/24/20 21 02/23/2021 MICRO ALBUM N RNDM W/CRE AT RATIO microalb 102.8 mg/L 0.0-16 .6 high Not Available [facility] (Lab) [address] [place], [address], 02/23/2021 12:20:39 02/24/20 21 02/23/2021 MICRO ALBUM [...] VOL. 26: S94-S 96, 2002 Not Available [facility] (Lab) [address] [place], [address], 02/23/2021 12:20:39 10/03/19 22 10/02/2021 HEMOG LOBIN A1C HA1C 6.3 % 4.0-6. 0 high Diabe michael Scree sandie Crite luz elena: <5.7% Consi stent with absen ce of diabe michael 5.7-6 .4% Consi stent with incre ased risk for diabe michael (pred iabet es) >OR=6 .5% Consi stent with diabe michael REFER ENCE: Diabe michael Care 2016, 39(Weldon ppl.1 ):s13 -s22 Not Available [facility] (Lab) [address] [place], [address], 10/02/2021 21:50:45 10/03/19 22 10/02/2021 LIPID PANEL cholesterol 152 mg/dL 140-19 9 NIH MAYRA NSUS RECOM MENDA TION FOR LEV STERO L: ADULT CHILD LOW RISK: <200 <170 BORDE RLINE : <200- 239 ----- HIGH RISK: >240 >200 Not Available [facility] (Lab) [address] [place], [address], 10/02/2021 19:21:49 10/03/19 22 10/02/2021 LIPID PANEL triglyceride s 141 mg/dL 0-150 NIH MAYRA NSUS REPOR T RECOM MENDA TION FOR TRIGL YCERI BETTY: ADULT CHILD LOW RISK: <150 ----- BODER LINE: 150-1 99 ----- HIGH RISK: >200 ----- Not Available [facility] (Lab) [address] [place], [address], 10/02/2021 19:21:49 10/03/19 22 10/02/2021 LIPID PANEL HDL cholesterol 42 mg/dL 40- Not Available [facility] (Lab) [address] [place], [address], 10/02/2021 19:21:49 10/03/19 22 10/02/2021 LIPID PANEL [...] WILL NOT BE REPOR BALJEET. Not Available [facility] (Lab) [address] [place], [address], 10/02/2021 19:21:49 10/03/19 22 10/02/2021 COMPR EHENS DANIEL METAB OLIC PANEL sodium 141 mmol/ L 137-14 5 Not Available [facility] (Lab) [address] [place], [address], 10/02/2021 19:21:44 10/03/19 22 10/02/2021 COMPR EHENS DANIEL METAB OLIC PANEL potassium 3.8 mmol/ L 3.5-5. 1 Not Available [facility] (Lab) [address] [place], [address], 10/02/2021 19:21:44 10/03/19 22 10/02/2021 COMPR EHENS DANIEL METAB OLIC PANEL chloride 102 mmol/ L 98-107 Not Available [facility] (Lab) [address] [place], [address], 10/02/2021 19:21:44 10/03/19 22 10/02/2021 COMPR EHENS DANIEL METAB OLIC PANEL carbon dioxide 29 mmol/ L 22-30 Not Available [facility] (Lab) [address] [place], [address], 10/02/2021 19:21:44 10/03/19 22 10/02/2021 COMPR EHENS DANIEL METAB OLIC PANEL anion gap 13.8 mmol/ L 14-22 low Not Available [facility] (Lab) [address] [place], [address], 10/02/2021 19:21:44 10/03/19 22 10/02/2021 COMPR EHENS DANIEL METAB OLIC PANEL glucose 134 mg/dL 70-99 high Not Available [facility] (Lab) [address] [place], [address], 10/02/2021 19:21:44 10/03/19 22 10/02/2021 COMPR EHENS DANIEL METAB OLIC PANEL BUN 12 mg/dL 8-19 Not Available [facility] (Lab) [address] [place], [address], 10/02/2021 19:21:44 10/03/19 22 10/02/2021 COMPR EHENS DANIEL METAB OLIC PANEL creatinine 0.98 mg/dL 0.66-1 .25 Not Available [facility] (Lab) [address] [place], [address], 10/02/2021 19:21:44 10/03/19 22 10/02/2021 COMPR EHENS DANIEL METAB OLIC PANEL bilirubin, total 0.70 mg/dL 0.20-1 .30 Not Available [facility] (Lab) [address] [place], [address], 10/02/2021 19:21:44 10/03/19 22 10/02/2021 COMPR EHENS DANIEL METAB OLIC PANEL GFR >60 Refer ence Range : [facility] ge GFR Healt hy Adult : >60 [...] or ethni c subgr oups, such as Hismt nics. Outsi de the valid ated gemma [...] s/kdo qi/gf r_cal culat or Not Available [facility] (Lab) [address] [place], [address], 10/02/2021 19:21:44 10/03/19 22 10/02/2021 COMPR EHENS DANIEL METAB OLIC PANEL alkaline phosphatase 48 U/L 38-126 Not Available [facility] (Lab) [address] [place], [address], 10/02/2021 19:21:44 10/03/19 22 10/02/2021 COMPR EHENS DANIEL METAB OLIC PANEL alanine aminotransfe rase 50 U/L 0-50 Not Available [facility] (Lab) [address] [place], [address], 10/02/2021 19:21:44 10/03/19 22 10/02/2021 COMPR EHENS DANIEL METAB OLIC PANEL aspartate aminotransfe rase 32 U/L 15-46 Not Available [facility] (Lab) [address] [place], [address], 10/02/2021 19:21:44 10/03/19 22 10/02/2021 COMPR EHENS DANIEL METAB OLIC PANEL calcium 9.6 mg/dL 8.4-10 .2 Not Available [facility] (Lab) [address] [place], [address], 10/02/2021 19:21:44 10/03/19 22 10/02/2021 COMPR EHENS DANIEL METAB OLIC PANEL total protein 7.2 g/dL 6.3-8. 2 Not Available [facility] (Lab) [address] [place], [address], 10/02/2021 19:21:44 10/03/19 22 10/02/2021 COMPR EHENS DANIEL METAB OLIC PANEL albumin 4.6 g/dL 3.4-5. 0 Not Available [facility] (Lab) [address] [place], [address], 10/02/2021 19:21:44 10/03/19 22 10/02/2021 COMPR EHENS DANIEL METAB OLIC PANEL globulin 2.6 g/dL 2.6-4. 2 Not Available [facility] (Lab) [address] [place], [address], 10/02/2021 19:21:44 10/03/19 22 10/02/2021 COMPR EHENS DANIEL METAB OLIC PANEL A/G ratio 1.8 ratio 1.0-2. 0 Not Available [facility] (Lab) [address] [place], [address], 10/02/2021 19:21:44 10/03/19 22 10/02/2021 MICRO ALBUM N RNDM W/CRE AT RATIO ur creat 81.01 mg/dL REFER ENCE RANGE NOT ESTAB LISHE D FOR RANDO M URINE CREAT ININE Not Available [facility] (Lab) [address] [place], [address], 10/02/2021 19:19:37 10/03/19 22 10/02/2021 MICRO ALBUM N RNDM W/CRE AT RATIO microalbumin , urine 40.8 mg/L 0.0-16 .6 high Not Available [facility] (Lab) [address] [place], [address], 10/02/2021 19:19:37 10/03/19 22 10/02/2021 MICRO ALBUM [...] S94-S 96, JANUA RY 2002 Not Available [facility] (Lab) [address] [place], [address], 10/02/2021 19:19:37 07/09/19 23 07/08/2022 CBC/C OMPLE TE BLD COUNT W/DIF F white blood cells 8.0 x10'3 /uL 4.2-10 .8 Not Available [facility] (Lab) [address] [place], [address], 07/08/2022 17:59:10 07/09/19 23 07/08/2022 CBC/C OMPLE TE BLD COUNT W/DIF F red blood cells 6.10 x10'6 /uL 4.10-5 .80 high Not Available [facility] (Lab) [address] [place], [address], 07/08/2022 17:59:10 07/09/19 23 07/08/2022 CBC/C OMPLE TE BLD COUNT W/DIF F hemoglobin 16.4 g/dL 13.2-1 7.0 Not Available [facility] (Lab) [address] [place], [address], 07/08/2022 17:59:10 07/09/19 23 07/08/2022 CBC/C OMPLE TE BLD COUNT W/DIF F hematocrit 49.6 % 39.3-5 0.0 Not Available [facility] (Lab) [address] [place], [address], 07/08/2022 17:59:10 07/09/19 23 07/08/2022 CBC/C OMPLE TE BLD COUNT W/DIF F mean red cell volume 81.3 fL 80.0-9 7.0 Not Available [facility] (Lab) [address] [place], [address], 07/08/2022 17:59:10 0307/08/2022 CBC/C OMPLE TE BLD COUNT W/DIF F mean red cell hemoglobin 26.9 pg 27.0-3 3.0 low Not Available [facility] (Lab) [address] [place], [address], 07/08/2022 17:59:10 07/09/19 23 07/08/2022 CBC/C OMPLE TE BLD COUNT W/DIF F mean RBC HGB concentratio n 33.1 g/dL 31.0-3 6.0 Not Available [facility] (Lab) [address] [place], [address], 07/08/2022 17:59:10 07/09/19 23 07/08/2022 CBC/C OMPLE TE BLD COUNT W/DIF F red cell distribution width 13.2 % 11.8-1 5.5 Not Available [facility] (Lab) [address] [place], [address], 07/08/2022 17:59:10 07/09/19 23 07/08/2022 CBC/C OMPLE TE BLD COUNT W/DIF F platelets 295 x10'3 /uL 150-40 0 Not Available [facility] (Lab) [address] [place], [address], 07/08/2022 17:59:10 07/09/19 23 07/08/2022 CBC/C OMPLE TE BLD COUNT W/DIF F mean platelet volume 10.2 fL 9.0-12 .4 Not Available [facility] (Lab) [address] [place], [address], 07/08/2022 17:59:10 07/09/19 23 07/08/2022 CBC/C OMPLE TE BLD COUNT W/DIF F neutrophils 53.6 % 39.0-7 2.0 Not Available [facility] (Lab) [address] [place], [address], 07/08/2022 17:59:10 07/09/19 23 07/08/2022 CBC/C OMPLE TE BLD COUNT W/DIF F lymphocytes 33.0 % 16.0-4 7.0 Not Available [facility] (Lab) [address] [place], [address], 07/08/2022 17:59:10 07/09/19 23 07/08/2022 CBC/C OMPLE TE BLD COUNT W/DIF F monocytes 8.5 % 5.0-12 .0 Not Available [facility] (Lab) [address] [place], [address], 07/08/2022 17:59:10 07/09/19 23 07/08/2022 CBC/C OMPLE TE BLD COUNT W/DIF F eosinophils 3.9 % 1.0-7. 0 Not Available [facility] (Lab) [address] [place], [address], 07/08/2022 17:59:10 07/09/19 23 07/08/2022 CBC/C OMPLE TE BLD COUNT W/DIF F basophils 0.5 % 0.0-2. 0 Not Available [facility] (Lab) [address] [place], [address], 07/08/2022 17:59:10 07/09/19 23 07/08/2022 CBC/C OMPLE TE BLD COUNT W/DIF F immature granulocytes 0.5 % 0.00-0 .50 Not Available [facility] (Lab) [address] [place], [address], 07/08/2022 17:59:10 07/09/1907/08/2022 CBC/C OMPLE TE BLD COUNT W/DIF F neutrophils, absolute count 4.30 x10'3 /uL 1.5-8. 0 Not Available [facility] (Lab) [address] [place], [address], 07/08/2022 17:59:10 07/09/19 23 07/08/2022 CBC/C OMPLE TE BLD COUNT W/DIF F lymphocytes, absolute count 2.64 x10'3 /uL 1.07-3 .43 Not Available [facility] (Lab) [address] [place], [address], 07/08/2022 17:59:10 07/09/19 23 07/08/2022 CBC/C OMPLE TE BLD COUNT W/DIF F monocytes, absolute count 0.68 x10'3 /uL 0.29-0 .99 Not Available [facility] (Lab) [address] [place], [address], 07/08/2022 17:59:10 07/09/19 23 07/08/2022 CBC/C OMPLE TE BLD COUNT W/DIF F eosinophils, absolute count 0.31 x10'3 /uL 0.02-0 .53 Not Available [facility] (Lab) [address] [place], [address], 07/08/2022 17:59:10 07/09/19 23 07/08/2022 CBC/C OMPLE TE BLD COUNT W/DIF F basophils, absolute count 0.04 x10'3 /uL 0.01-0 .08 Not Available [facility] (Lab) [address] [place], [address], 07/08/2022 17:59:10 07/09/19 23 07/08/2022 CBC/C OMPLE TE BLD COUNT W/DIF F immature granulocytes ,absolute 0.04 x10'3 /uL 0.00-0 .05 Not Available [facility] (Lab) [address] [place], [address], 07/08/2022 17:59:10 07/09/19 23 07/08/2022 CBC/C OMPLE TE BLD COUNT W/DIF F nucleated red blood cells 0.0 % -0 Not Available [facility] (Lab) [address] [place], [address], 07/08/2022 17:59:10 07/09/1907/08/2022 CBC/C OMPLE TE BLD COUNT W/DIF F NRBC# 0.00 x10'3 /uL Not Available [facility] (Lab) [address] [place], [address], 07/08/2022 17:59:10 07/09/19 23 07/08/2022 MICRO ALBUM N RNDM W/CRE AT RATIO ur creat 98.99 mg/dL REFER ENCE RANGE NOT ESTAB LISHE D FOR RANDO M URINE CREAT ININE Not Available [facility] (Lab) [address] [place], [address], 07/08/2022 18:10:39 07/09/19 23 07/08/2022 MICRO ALBUM N RNDM W/CRE AT RATIO microalbumin , urine 112.6 mg/L 0.0-16 .6 high Not Available [facility] (Lab) [address] [place], [address], 07/08/2022 18:10:39 07/09/19 23 07/08/2022 MICRO ALBUM [...] CARE, VOL. 26: S94-S 2002 Not Available [facility] (Lab) [address] [place], [address], 07/08/2022 18:10:39 07/09/1907/08/2022 LIPID PANEL cholesterol 146 mg/dL 140-19 9 NIH MAYRA NSUS RECOM MENDA TION FOR LEV STERO L: ADULT CHILD LOW RISK: <200 <170 BORDE RLINE : <200- 239 ----- HIGH RISK: >240 >200 Not Available [facility] (Lab) [address] [place], [address], 07/08/2022 19:26:47 07/09/19 23 07/08/2022 LIPID PANEL triglyceride s 251 mg/dL 0-150 high NIH MAYRA NSUS REPOR T RECOM MENDA TION FOR TRIGL YCERI BETTY: ADULT CHILD LOW RISK: <150 ----- BODER LINE: 150-1 99 ----- HIGH RISK: >200 ----- Not Available [facility] (Lab) [address] [place], [address], 07/08/2022 19:26:47 07/09/19 23 07/08/2022 LIPID PANEL HDL cholesterol 37 mg/dL 40- low Not Available [facility] (Lab) [address] [place], [address], 07/08/2022 19:26:47 07/09/19 23 07/08/2022 LIPID PANEL [...] WILL NOT BE REPOR BALJEET. Not Available [facility] (Lab) [address] [place], [address], 07/08/2022 19:26:47 07/09/19 23 07/08/2022 COMPR EHENS DANIEL METAB OLIC PANEL sodium 139 mmol/ L 137-14 5 Not Available [facility] (Lab) [address] [place], [address], 07/08/2022 19:26:53 07/09/19 23 07/08/2022 COMPR EHENS DANIEL METAB OLIC PANEL potassium 3.7 mmol/ L 3.5-5. 1 Not Available [facility] (Lab) [address] [place], [address], 07/08/2022 19:26:53 07/09/19 23 07/08/2022 COMPR EHENS DANIEL METAB OLIC PANEL chloride 101 mmol/ L 98-107 Not Available [facility] (Lab) [address] [place], [address], 07/08/2022 19:26:53 07/09/19 23 07/08/2022 COMPR EHENS DANIEL METAB OLIC PANEL carbon dioxide 27 mmol/ L 22-30 Not Available [facility] (Lab) [address] [place], [address], 07/08/2022 19:26:53 07/09/19 23 07/08/2022 COMPR EHENS DANIEL METAB OLIC PANEL anion gap 14.7 mmol/ L 14-22 Not Available [facility] (Lab) [address] [place], [address], 07/08/2022 19:26:53 07/09/19 23 07/08/2022 COMPR EHENS DANIEL METAB OLIC PANEL glucose 166 mg/dL 70-99 high Not Available [facility] (Lab) [address] [place], [address], 07/08/2022 19:26:53 07/09/19 23 07/08/2022 COMPR EHENS DANIEL METAB OLIC PANEL BUN 14 mg/dL 8-19 Not Available [facility] (Lab) [address] [place], [address], 07/08/2022 19:26:53 07/09/1907/08/2022 COMPR EHENS DANIEL METAB OLIC PANEL creatinine 0.82 mg/dL 0.66-1 .25 Not Available [facility] (Lab) [address] [place], [address], 07/08/2022 19:26:53 07/09/19 23 07/08/2022 COMPR EHENS DANIEL METAB OLIC PANEL GFR >60 Refer ence Range : [facility] ge GFR Healt hy Adult : >60 [...] or ethni c subgr oups, such as Hismt nics. Outsi de the valid ated gemma [...] s/kdo qi/gf r_cal culat or Not Available [facility] (Lab) [address] [place], [address], 07/08/2022 19:26:53 07/09/1907/08/2022 COMPR EHENS DANIEL METAB OLIC PANEL alkaline phosphatase 60 U/L 38-126 Not Available [facility] (Lab) [address] [place], [address], 07/08/2022 19:26:53 07/09/19 23 07/08/2022 COMPR EHENS DANIEL METAB OLIC PANEL alanine aminotransfe rase 83 U/L 0-50 high Not Available [facility] (Lab) [address] [facility] [place], [address], 07/08/2022 19:26:53 07/09/19 23 07/08/2022 COMPR EHENS DANIEL METAB OLIC PANEL aspartate aminotransfe rase 64 U/L 15-46 high Not Available [facility] (Lab) [address] [place], [address], 07/08/2022 19:26:53 07/09/19 23 07/08/2022 COMPR EHENS DANIEL METAB OLIC PANEL bilirubin, total 0.80 mg/dL 0.20-1 .30 Not Available [facility] (Lab) [address] [place], [address], 07/08/2022 19:26:53 07/09/19 23 07/08/2022 COMPR EHENS DANIEL METAB OLIC PANEL calcium 9.5 mg/dL 8.4-10 .2 Not Available [facility] (Lab) [address] [place], [address], 07/08/2022 19:26:53 07/09/19 23 07/08/2022 COMPR EHENS DANIEL METAB OLIC PANEL total protein 8.0 g/dL 6.3-8. 2 Not Available [facility] (Lab) [address] [facility] [place], [address], 07/08/2022 19:26:53 07/09/19 23 07/08/2022 COMPR EHENS DANIEL METAB OLIC PANEL albumin 4.8 g/dL 3.4-5. 0 Not Available [facility] (Lab) [address] [place], [address], 07/08/2022 19:26:53 07/09/19 23 07/08/2022 COMPR EHENS DANIEL METAB OLIC PANEL globulin 3.2 g/dL 2.6-4. 2 Not Available [facility] (Lab) [address] [place], [address], 07/08/2022 19:26:53 07/09/19 23 07/08/2022 COMPR EHENS DANIEL METAB OLIC PANEL A/G ratio 1.5 ratio 1.0-2. 0 Not Available [facility] (Lab) [address] [place], [address], 07/08/2022 19:26:53 07/09/19 23 07/08/2022 HEMOG LOBIN A1C HA1C 7.3 % 4.0-6. 0 high Diabe michael Scree sandie Crite luz elena: <5.7% Consi stent with absen ce of diabe michael 5.7-6 .4% Consi stent with incre ased risk for diabe michael (pred iabet es) >OR=6 .5% Consi stent with diabe michael REFER ENCE: Diabe michael Care 2016, 39([facility] ppl.1 ):s13 -s22 Not Available [facility] (Lab) [address] [place], [address], 07/08/2022 19:59:16 02/11/20 23 02/10/2023 CBC/C OMPLE TE BLD COUNT W/DIF F white blood cells 7.1 x10'3 /uL 4.2-10 .8 Not Available [facility] (Lab) [address] [place], [address], 02/10/2023 18:04:16 02/11/20 23 02/10/2023 CBC/C OMPLE TE BLD COUNT W/DIF F red blood cells 5.76 x10'6 /uL 4.10-5 .80 Not Available [facility] (Lab) [address] [place], [address], 02/10/2023 18:04:16 02/11/2002/10/2023 CBC/C OMPLE TE BLD COUNT W/DIF F hemoglobin 16.0 g/dL 13.2-1 7.0 Not Available [facility] (Lab) [address] [place], [address], 02/10/2023 18:04:16 02/11/2002/10/2023 CBC/C OMPLE TE BLD COUNT W/DIF F hematocrit 47.6 % 39.3-5 0.0 Not Available [facility] (Lab) [address] [place], [address], 02/10/2023 18:04:16 02/11/2002/10/2023 CBC/C OMPLE TE BLD COUNT W/DIF F mean red cell volume 82.6 fL 80.0-9 7.0 Not Available [facility] (Lab) [address] [place], [address], 02/10/2023 18:04:16 02/11/2002/10/2023 CBC/C OMPLE TE BLD COUNT W/DIF F mean red cell hemoglobin 27.8 pg 27.0-3 3.0 Not Available [facility] (Lab) [address] [place], [address], 02/10/2023 18:04:16 02/11/2002/10/2023 CBC/C OMPLE TE BLD COUNT W/DIF F mean RBC HGB concentratio n 33.6 g/dL 31.0-3 6.0 Not Available [facility] (Lab) [address] [place], [address], 02/10/2023 18:04:16 02/11/2002/10/2023 CBC/C OMPLE TE BLD COUNT W/DIF F red cell distribution width 13.2 % 11.8-1 5.5 Not Available [facility] (Lab) [address] [place], [address], 02/10/2023 18:04:16 02/11/2002/10/2023 CBC/C OMPLE TE BLD COUNT W/DIF F platelets 269 x10'3 /uL 150-40 0 Not Available [facility] (Lab) [address] [place], [address], 02/10/2023 18:04:16 02/11/2002/10/2023 CBC/C OMPLE TE BLD COUNT W/DIF F mean platelet volume 10.0 fL 9.0-12 .4 Not Available [facility] (Lab) [address] [place], [address], 02/10/2023 18:04:16 02/11/2002/10/2023 CBC/C OMPLE TE BLD COUNT W/DIF F neutrophils 57.4 % 39.0-7 2.0 Not Available [facility] (Lab) [address] [place], [address], 02/10/2023 18:04:16 02/11/2002/10/2023 CBC/C OMPLE TE BLD COUNT W/DIF F lymphocytes 28.7 % 16.0-4 7.0 Not Available [facility] (Lab) [address] [place], [address], 02/10/2023 18:04:16 02/11/2002/10/2023 CBC/C OMPLE TE BLD COUNT W/DIF F monocytes 7.9 % 5.0-12 .0 Not Available [facility] (Lab) [address] [place], [address], 02/10/2023 18:04:16 02/11/2002/10/2023 CBC/C OMPLE TE BLD COUNT W/DIF F eosinophils 4.6 % 1.0-7. 0 Not Available [facility] (Lab) [address] [place], [address], 02/10/2023 18:04:16 02/11/2002/10/2023 CBC/C OMPLE TE BLD COUNT W/DIF F basophils 1.0 % 0.0-2. 0 Not Available [facility] (Lab) [address] [place], [address], 02/10/2023 18:04:16 02/11/2002/10/2023 CBC/C OMPLE TE BLD COUNT W/DIF F immature granulocytes 0.4 % 0.00-0 .50 Not Available [facility] (Lab) [address] [place], [address], 02/10/2023 18:04:16 02/11/2002/10/2023 CBC/C OMPLE TE BLD COUNT W/DIF F neutrophils, absolute count 4.08 x10'3 /uL 1.5-8. 0 Not Available [facility] (Lab) [address] [place], [address], 02/10/2023 18:04:16 02/11/2002/10/2023 CBC/C OMPLE TE BLD COUNT W/DIF F lymphocytes, absolute count 2.04 x10'3 /uL 1.07-3 .43 Not Available [facility] (Lab) [address] [place], [address], 02/10/2023 18:04:16 02/11/2002/10/2023 CBC/C OMPLE TE BLD COUNT W/DIF F monocytes, absolute count 0.56 x10'3 /uL 0.29-0 .99 Not Available [facility] (Lab) [address] [place], [address], 02/10/2023 18:04:16 02/11/2002/10/2023 CBC/C OMPLE TE BLD COUNT W/DIF F eosinophils, absolute count 0.33 x10'3 /uL 0.02-0 .53 Not Available [facility] (Lab) [address] [place], [address], 02/10/2023 18:04:16 02/11/2002/10/2023 CBC/C OMPLE TE BLD COUNT W/DIF F basophils, absolute count 0.07 x10'3 /uL 0.01-0 .08 Not Available [facility] (Lab) [address] [place], [address], 02/10/2023 18:04:16 02/11/2002/10/2023 CBC/C OMPLE TE BLD COUNT W/DIF F immature granulocytes ,absolute 0.03 x10'3 /uL 0.00-0 .05 Not Available [facility] (Lab) [address] [place], [address], 02/10/2023 18:04:16 02/11/2002/10/2023 CBC/C OMPLE TE BLD COUNT W/DIF F nucleated red blood cells 0.0 % -0 Not Available [facility] (Lab) [address] [place], [address], 02/10/2023 18:04:16 02/11/2002/10/2023 CBC/C OMPLE TE BLD COUNT W/DIF F NRBC# 0.00 x10'3 /uL Not Available [facility] (Lab) [address] [place], [address], 02/10/2023 18:04:16 02/11/2002/10/2023 COMPR EHENS DANIEL METAB OLIC PANEL sodium 141 mmol/ L 137-14 5 Not Available [facility] (Lab) [address] [place], [address], 02/10/2023 18:19:08 02/11/2002/10/2023 COMPR EHENS DANIEL METAB OLIC PANEL potassium 3.8 mmol/ L 3.5-5. 1 Not Available [facility] (Lab) [address] [place], [address], 02/10/2023 18:19:08 02/11/2002/10/2023 COMPR EHENS DANIEL METAB OLIC PANEL chloride 98 mmol/ L 98-107 Not Available [facility] (Lab) [address] [place], [address], 02/10/2023 18:19:08 02/11/2002/10/2023 COMPR EHENS DANIEL METAB OLIC PANEL carbon dioxide 31 mmol/ L 22-30 high Not Available [facility] (Lab) [address] [place], [address], 02/10/2023 18:19:08 02/11/2002/10/2023 COMPR EHENS DANIEL METAB OLIC PANEL anion gap 15.8 mmol/ L 14-22 Not Available [facility] (Lab) [address] [place], [address], 02/10/2023 18:19:08 02/11/2002/10/2023 COMPR EHENS DANIEL METAB OLIC PANEL glucose 232 mg/dL 70-99 high Not Available [facility] (Lab) [address] [place], [address], 02/10/2023 18:19:08 02/11/2002/10/2023 COMPR EHENS DANIEL METAB OLIC PANEL BUN 12 mg/dL 8-19 Not Available [facility] (Lab) [address] [place], [address], 02/10/2023 18:19:08 02/11/20 23 02/10/2023 COMPR EHENS DANIEL METAB OLIC PANEL creatinine 0.80 mg/dL 0.66-1 .25 Not Available [facility] (Lab) [address] [place], [address], 02/10/2023 18:19:08 02/11/2002/10/2023 COMPR EHENS DANIEL METAB OLIC PANEL GFR >60 Refer ence Range : [place] ge GFR Healt hy Adult : >60 [...] calcu lator is avail able on the [facility] websi te: https :[email or web address] hammer.o rg/pr ofess ional s/kdo qi/gf r_cal culat or Not Available [facility] (Lab) [address] [place], [address], 02/10/2023 18:19:08 02/11/2002/10/2023 COMPR EHENS DANIEL METAB OLIC PANEL alkaline phosphatase 53 U/L 38-126 Not Available [facility] (Lab) [address] [place], [address], 02/10/2023 18:19:08 1002/10/2023 COMPR EHENS DANIEL METAB OLIC PANEL alanine aminotransfe rase 67 U/L 0-50 high Not Available [facility] (Lab) [address] [place], [address], 02/10/2023 18:19:08 02/11/2002/10/2023 COMPR EHENS DANIEL METAB OLIC PANEL aspartate aminotransfe rase 47 U/L 15-46 high Not Available [facility] (Lab) [address] [place], [address], 02/10/2023 18:19:08 02/11/2002/10/2023 COMPR EHENS DANIEL METAB OLIC PANEL bilirubin, total 0.90 mg/dL 0.20-1 .30 Not Available [facility] (Lab) [address] [place], [address], 02/10/2023 18:19:08 02/11/2002/10/2023 COMPR EHENS DANIEL METAB OLIC PANEL calcium 10.0 mg/dL 8.4-10 .2 Not Available [facility] (Lab) [address] [place], [address], 02/10/2023 18:19:08 02/11/2002/10/2023 COMPR EHENS DANIEL METAB OLIC PANEL total protein 7.5 g/dL 6.3-8. 2 Not Available [facility] (Lab) [address] [place], [address], 02/10/2023 18:19:08 02/11/2002/10/2023 COMPR EHENS DANIEL METAB OLIC PANEL albumin 4.7 g/dL 3.4-5. 0 Not Available [facility] (Lab) [address] [place], [address], 02/10/2023 18:19:08 02/11/2002/10/2023 COMPR EHENS DANIEL METAB OLIC PANEL globulin 2.8 g/dL 2.6-4. 2 Not Available [facility] (Lab) [address] [place], [address], 02/10/2023 18:19:08 02/11/20 23 02/10/2023 COMPR EHENS DANIEL METAB OLIC PANEL A/G ratio 1.7 ratio 1.0-2. 0 Not Available [facility] (Lab) [address] [place], [address], 02/10/2023 18:19:08 02/11/2002/10/2023 LIPID PANEL cholesterol 161 mg/dL 140-19 9 NIH MAYRA NSUS RECOM MENDA TION FOR LEV STERO L: ADULT CHILD LOW RISK: <200 <170 BORDE RLINE : <200- 239 ----- HIGH RISK: >240 >200 Not Available [facility] (Lab) [address] [place], [address], 02/10/2023 18:19:18 02/11/2002/10/2023 LIPID PANEL triglyceride s 231 mg/dL 0-150 high NIH MAYRA NSUS REPOR T RECOM MENDA TION FOR TRIGL YCERI BETTY: ADULT CHILD LOW RISK: <150 ----- BODER LINE: 150-1 99 ----- HIGH RISK: >200 ----- Not Available [facility] (Lab) [address] [place], [address], 02/10/2023 18:19:18 02/11/2002/10/2023 LIPID PANEL HDL cholesterol 40 mg/dL 40- Not Available [facility] (Lab) [address] [place], [address], 02/10/2023 18:19:18 02/11/2002/10/2023 LIPID PANEL LDL cholesterol, [...] WILL NOT BE REPOR BALJEET. Not Available [facility] (Lab) [address] [place], [address], 02/10/2023 18:19:18 02/11/20 23 02/10/2023 HEMOG LOBIN A1C HA1C 7.6 % 4.0-6. 0 high Diabe michael Scree sandie Crite luz elena: <5.7% Consi stent with absen ce of diabe michael 5.7-6 .4% Consi stent with incre ased risk for diabe michael (pred iabet es) >OR=6 .5% Consi stent with diabe michael REFER ENCE: Diabe michael Care 2016, 39([place] ppl.1 ):s13 -s22 Not Available [facility] (Lab) [address] [place], [address], 02/10/2023 21:02:46 Result Notes None recorded. Problems Name Problem SNOMED Code Status Onset Date Resolution Date Notes Provider Name and Address Organization Details Recorded Time Sebaceous cyst of skin 520266908 Active 2022 Not Available [facility] 3 00:14:39 Cellulitis 780715772 Active Not Available [facility] 3 00:14:38 Acute sinusitis 40710627 Active 2022 Not Available [facility] 3 00:14:39 Blood glucose outside reference range 330409364 Active Not Available [facility] 3 00:14:39 Overweight 109861844 Active Not Available [facility] 3 00:14:39 Type 2 diabetes mellitus without complication 342719828 Active 2021 Not Available [facility] 3 00:14:39 Depressive disorder 97689010 Active Not Available [facility] 3 00:14:39 Sinusitis 45236674 Active Not Available [facility] 3 00:14:39 Dyslipidemia 420107500 Active 2016 Not Available [facility] 3 00:14:39 Obesity 017855317 Active 2018 Not Available [facility] 3 00:14:39 Upper respiratory infection 91739783 Active 2021 Not Available [facility] 3 00:14:39 Essential hypertension 47514015 Active Not Available [facility] 3 00:14:39 Strain of thoracic region 20326925 Active Not Available [facility] 3 00:14:39 Liver enzymes level above reference range 216561200 Active Not Available [facility] 3 00:14:39 Diabetes mellitus 53589939 Active Not Available [facility] 3 00:14:39 Gout 20823372 Active Not Available [facility] 3 00:14:39 Problem Notes None recorded. Procedures Surgical History Date Name Laterality Status Provider Name and Address Organization Details Recorded Time 0 excision of lipoma of shoulder completed Not Available [facility] 06/26/2022 03:20:17 5 Sinus Surgery completed Not Available [facility] 2022 03:20:17 Imaging Results None recorded. Procedure [...] Astepro 205.5 mcg (0.15 %) nasal spray [place] 1 spray twice a day by intranas [...] kg/m2 187.96 cm 84 /min 97.2 [degF] 844114. 37 g 140 mm[Hg] 92 mm[Hg] Not Available [facility] 3 03:24:17 Date Recorded Body mass index (BMI) Body height Heart rate Body temperature Body weight Systolic blood pressure Diastolic blood pressure Provider Name and Address Organization Details Last Updated DateTime 2 45.3 kg/m2 187.96 cm 90 /min 97.2 [degF] 483568. 11 g 140 mm[Hg] 80 mm[Hg] Not Available [facility] 3 03:24:17 Date Recorded Body mass index (BMI) Body height Heart rate Body temperature Body weight Systolic blood pressure Diastolic blood pressure Provider Name and Address Organization Details Last Updated DateTime 2 46.5 kg/m2 187.96 cm 79 /min 97.9 [degF] 947282. 44 g 136 mm[Hg] 80 mm[Hg] Not Available [facility] 3 03:24:17 Date Recorded Body height Body mass index (BMI) Body weight Body temperature Heart rate Systolic blood pressure Diastolic blood pressure Provider Name and Address Organization Details Last Updated DateTime 3 187.96 cm 46.9 kg/m2 200690. 22 g 97.8 [degF] 79 /min 148 mm[Hg] 90 mm[Hg] PASCUAL Montes [employer] 3 16:51:28 Date Recorded Body height Body mass index (BMI) Body weight Body temperature Heart rate Systolic blood pressure Diastolic blood pressure Provider Name and Address Organization Details Last Updated DateTime 3 187.96 cm 46.5 kg/m2 085363. 44 g 98.5 [degF] 86 /min 140 mm[Hg] 90 mm[Hg] PASCUAL Montes [place] [employer] 3 16:31:57 Social History Question Answer Notes LastModified by Organization Details LastModified Time Tobacco Smoking Status Never Smoker Not Available [facility] 06/26/2022 03:08:57 Do You Have An Advance Directive? No MIGRATION.0301 [id number] Information not available 06/26/2022 What Is Your Level Of Alcohol Consumption? Occasional MIGRATION.0301 [id number] Information not available 06/26/2022 Do You Wear A Helmet When Biking? Yes MIGRATION.0301 041672 Information not available 06/26/2022 What Is Your Level Of Caffeine Consumption? Occasional MIGRATION.0301 [id number] Information not available 06/26/2022 How Much Tobacco Do You Chew? None MIGRATION.0301 854841 Information not available 06/26/2022 In The 14 Days Before Symptom Onset, Have You Had Close Contact With A Laboratory-confi rmed COVID-19 While That Case Was Ill? No MIGRATION.0301 [id number] Information not available 06/26/2022 In The 14 Days Before Symptom Onset, Have You Had Close Contact With A Person Who Is Under Investigation For COVID-19 While That Person Was Ill? No MIGRATION.0301 [id number] Information not available 06/26/2022 What Type Of Diet Are You Following? REGULAR MIGRATION.0301 [id number] Information not available 06/26/2022 Which Illicit Or Recreational Drugs Have You Used? None MIGRATION.0301 750980 Information not available 06/26/2022 Do You Or Have You Ever Used E-cigarettes Or Vape? Never Used Electronic Cigarettes MIGRATION.0301 310885 Information not available 06/26/2022 What Is The Highest Grade Or Level Of School You Have Completed Or The Highest Degree You Have Received? 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 No MIGRATION.0301 [id number] Information not available 06/26/2022 What Is The Fluoride Status Of Your Home? Unknown MIGRATION.0301 215850 Information not available 06/26/2022 Do You Use Insect Repellent Routinely? No MIGRATION.0301 980990 Information not available 06/26/2022 Where Do You Live? [facility] MIGRATION.0301 926721 Information not available 06/26/2022 Do You Have A Medical Power Of Surgical Garment Assembly Supervisor? No MIGRATION.0301 [id number] Information not available 06/26/2022 What Was The Date Of Your Most Recent Tobacco Screening? 02/10/2023 [email or web address] Information not available 02/10/2023 Have You Ever Been Counseled For Unhealthy Alcohol Use? No MIGRATION.0301 595387 Information not available 06/26/2022 Do You Have Any Pets? No MIGRATION.0301 968835 Information not available 06/26/2022 What Is Your Relationship Status? Single MIGRATION.0301 875203 Information not available 06/26/2022 Do You Use Your Seat Belt Or Car Seat Routinely? Yes MIGRATION.0301 944808 Information not available 06/26/2022 Do You Have Smoke And Carbon Monoxide Detectors In Your Home? Yes MIGRATION.0301 162870 Information not available 06/26/2022 Are You Passively Exposed To Smoke? No MIGRATION.0301 312544 Information not available 06/26/2022 Do You Or Have You Ever Used Smokeless Tobacco? Never Used Smokeless Tobacco MIGRATION.0301 872780 Information not available 06/26/2022 Are There Any Smokers In Your House? No MIGRATION.0301 160518 Information not available 06/26/2022 How Much Tobacco Do You Smoke? No MIGRATION.0301 059256 Information not available 06/26/2022 What Types Of Sporting Activities Do You Participate In? None MIGRATION.0301 822914 Information not available 06/26/2022 Do You Feel Stressed (tense, Restless, Nervous, Or Anxious, Or Unable To Sleep At Night)? BC32464-4 MIGRATION.030 629747 Information not available 06/26/2022 Do You Use Any Illicit Or Recreational Drugs? No MIGRATION.030 694978 Information not available 06/26/2022 Do You Use Sunscreen Routinely? No MIGRATION.030 595438 Information not available 06/26/2022 Has Tobacco Cessation Counseling Been Provided? No Not Needed-ne vilma Smoked MIGRATION.030535515 Information not available 06/26/2022 How Many Years Have You Smoked Tobacco? 0 MIGRATION.030 369805 Information not available 06/26/2022 Have You Recently Traveled Abroad? No MIGRATION.030 253583 Information not available 06/26/2022 Do You Have Any Dietary Restrictions? No MIGRATION.030 705898 Information not available 06/26/2022 Do You Or Have You Ever Used Any Other Forms Of Tobacco Or Nicotine? No MIGRATION.030 322300 Information not available 06/26/2022 Sex: Male Functional Status Question Answer Note LastModified by Organizat ion Details LastModified Time What is your exercise level? Occasional MIGRATION.[id number] 26 Information not available 06/26/2022 Mental Status None recorded. Family History Relationship Description Onset Age of this Age Resolved Age Notes LastModified by Organization Details LastModified Time Paternal Grandmother Diabetes mellitus MIGRATION.066 [id number] Not available 06/26/2022 03:20:20 Paternal Uncle Diabetes mellitus MIGRATION.383 [id number] Not available 06/26/2022 03:20:20 Medical History Condition [...] HAVE YOU BEEN HOSPITALIZED OR SEEN IN [facility] IN THE PAST YEAR ? N ATHEROSCLEROSIS [...] mcg/0.3 mL dose 1 completed Not Available [facility] 02/12/2023 00:14:39 COVID-19, mRNA, LNP-S, PF, 30 mcg/0.3 mL dose 1 completed Not Available [facility] 02/12/2023 00:14:39 Influenza, split virus, quadrivalent, preservative 0 completed Not Available [facility] 02/12/2023 00:14:39 Influenza, split virus, quadrivalent, PF 2 completed Not Available [facility] 02/12/2023 00:14:39 Influenza, split virus, quadrivalent, PF 9 completed Not Available [facility] 02/12/2023 00:14:39 Past Encounters Encounter ID Performer Location Encounter Start Date Encounter Closed Date Diagnosis/Indication Diagnosis SNOMED-CT Code Diagnosis ICD10 Code Diagnosis Note [id number] S_G Internal Med [facility] [address] [facility] y , [place] [address] 08/24/2020 00:00:00 08/24/2020 14:17:25 [id number] [facility] Internal Med [facility] [address] [place] [address] [place] [address] 08/29/2020 00:00:00 08/29/2020 20:37:29 [id number] [facility] Internal Med [facility] [address] [place] [address] [place] [address] 09/05/2020 00:00:00 09/05/2020 17:41:27 [id number] [facility] Internal Med [facility] [address] [place] [address] [place] [address] 10/02/2020 00:00:00 10/02/2020 23:26:48 [id number] [facility] Internal Med [facility] [address] [place], [place] [address]e., [address] [address] 02/22/2021 00:00:00 02/25/2021 21:05:37 [id number] [facility] Internal Med [facility] [address] [place], [place] [address]e., [place] [address] 1 10/02/2021 00:00:00 10/02/2021 18:51:25 [id number] [facility] Internal Med [facility] [address] [place], [place] [address]., [address] [address] 02/26/2022 00:00:00 02/26/2022 22:43:55 [id number] Tim French MD [facility] Internal Med [facility] [address] [place] [address]., [address] [address] 07/08/2022 16:08:57 07/08/2022 17:15:21 Diabetes mellitus 99078963 E11.9 Essential hypertension 64795801 I10 Dyslipidemia 321301653 E 78.5 Obesity 374602672 E66.9 Gout 03964952 M10.9 [id number] Tim French MD [facility] Internal Med [facility] [address] [place] [address] [place] [address] 02/10/2023 16:16:30 02/10/2023 17:11:55 Dyslipidemia 740146753 E78.5 Essential hypertension 53104504 I10 Sebaceous cyst of skin 862113867 L72.3 Type 2 kamran betes mellitus without complication 487138607 E11.9 Obesity 634945475 E66.9 Health Concerns Section Related Observation LastModified by Organization Detai ls LastModified Time None Recorded Concern Status LastModified by Organization Details LastModified Time None Recorded Advance Directives Directive N: Payers Encounter Date Sequence Insurance Name Policy Number Policy Albright Covered Member ID Albright Member ID Guarantor Name 07/08/2022 1 [place] [id number] Mynor Gloria [id number] Mynor Gloria 02/10/2023 1 [place] [id number] Mynor Gloria [id number] Mynor Gloria Notes Date Note Type Note Provider Name and Address Organization Details Recorded Time 07/08/2022 text/html Gout no flare-upsDyslipidemia taking medication could do better with exerciseObesity not making good strides thereHypertension no headache no dizzinessDiabetes up and down but no polyphagia polydipsia no hypoglycemic spells Tim French MD [address], [place], [address], [employer] 07/14/2022 13:12:01 02/10/2023 text/html Gout no flare-upsDyslipidemia taking medication could do better with exerciseObesity not making good strides thereHypertension no headache no dizzinessDiabetes up and down but no polyphagia polydipsia no hypoglycemic spellsInfected area on the top of his head for 1-2 weeks Tim French MD [address], [employer] [place], [address], [employer] 02/10/2023 17:53:09
[2024-08-11 18:10] LABS: Alanine Aminotransferase 74 U/L (6-50); Aspartate Amino Transferase 49 U/L (17-59)
== END 2024-08-11 17:19 | disposition home or self-care (01) ==
PROVIDERS: PCP Internal Medicine; Visit Provider Podiatrist Foot & Ankle Surgery
DX: B35.1 Tinea unguium (principal)
CPT/HCPCS: 36415; 84450; 84460